=== PATIENT | male | born 1960 | race African-American/Black ===

== ENCOUNTER 2016-12-27 20:05 | Emergency (ER) | payer MEDICAID ==
[~2016-12-27] VITALS: Ht 185.4 cm; Wt 74.0 kg
[2016-12-27] MEDS ORDERED: METHYLPREDNISOLONE SOD SUCC 125 MG/2 ML VIAL IV STA (20:39)
[2016-12-27] MEDS ORDERED: ALBUTEROL (0.083%) 2.5MG/3ML NEB HHN STA (20:39)
[2016-12-27] MEDS ORDERED: IPRATROPIUM BROMIDE (0.02%) 0.5MG/2.5ML NEB HHN STA (20:39)
[2016-12-27 21:06] LABS: BASOPHILS % 0.8 % (0.0-2.0); EOSINOPHILS % 10.5 % (0.0-5.0); HEMATOCRIT. 41.4 % (42.0-52.0); HEMOGLOBIN. 13.7 g/dL (14.0-18.0); LYMPHOCYTES % 22.7 % (20.0-50.0); MEAN CORPUSCULAR HEMOGLOBIN 28.3 pg (28.0-32.0); MEAN CORPUSCULAR VOLUME 85.4 fL (80.0-94.0); MEAN PLATELET VOLUME 7.7 fl (7.4-10.4); MONOCYTES % 11.3 % (2.0-8.0); NEUTROPHILS % 54.7 % (40.0-76.0); PLATELET 207 x1000/uL (130-400); RED BLOOD CELL COUNT 4.84 mill/uL (4.7-6.1); RED CELL DISTRIBUTION WIDTH 14.1 % (11.6-14.6)
[2016-12-27 21:11] LABS: PROTHROMBIN TIME 10.7 sec
[2016-12-27 21:18] LABS: CARBON DIOXIDE 29 mEq/L (21-32); CHLORIDE 105 mEq/L (98-107)
[2016-12-28 00:30] VITALS: BP 125/78
== END 2016-12-28 01:10 | disposition home or self-care (01) ==
LOC: ER 20:17
DX: J45.901 Unspecified asthma with (acute) exacerbation (principal); F14.10 Cocaine abuse, uncomplicated; F17.200 Nicotine dependence, unspecified, uncomplicated; Z59.0 Homelessness
CPT/HCPCS: 36415; 71010; 80053; 83605; 85025; 85610; 87040; 93005; 94644; 96374; 99285; 99406; J2930; J7611

== ENCOUNTER 2017-05-05 10:11 | Emergency (ER) | payer MEDICAID ==
[~2017-05-05] VITALS: Ht 175.3 cm; Wt 66.0 kg
[2017-05-05] MEDS ORDERED: IPRATROPIUM/ALBUTEROL 0.5-3(2.5)MG/3ML NEB HHN ONE (10:45)
[2017-05-05 10:55] LABS: BASOPHILS % 2.8 % (0.0-2.0); EOSINOPHILS % 5.5 % (0.0-5.0); HEMATOCRIT. 42.2 % (42.0-52.0); HEMOGLOBIN. 14.2 g/dL (14.0-18.0); LYMPHOCYTES % 36.7 % (20.0-50.0); MEAN CORPUSCULAR HEMOGLOBIN 28.3 pg (28.0-32.0); MEAN CORPUSCULAR VOLUME 84.1 fL (80.0-94.0); MEAN PLATELET VOLUME 7.3 fl (7.4-10.4); MONOCYTES % 12.1 % (2.0-8.0); NEUTROPHILS % 42.9 % (40.0-76.0); PLATELET 224 x1000/uL (130-400); RED BLOOD CELL COUNT 5.01 mill/uL (4.7-6.1); RED CELL DISTRIBUTION WIDTH 13.2 % (11.6-14.6)
[2017-05-05 11:10] LABS: CARBON DIOXIDE 23 mEq/L (21-32); CHLORIDE 101 mEq/L (98-107); TROPONIN I < 0.02 ng/mL (0.00-0.04)
[2017-05-05 14:52] VITALS: BP 125/80
== END 2017-05-05 15:41 | disposition home or self-care (01) ==
LOC: ER 10:26
DX: J44.1 Chronic obstructive pulmonary disease with (acute) exacerbation (principal); G40.909 Epilepsy, unspecified, not intractable, without status epilepticus
CPT/HCPCS: 36415; 71010; 80048; 84484; 85025; 93005; 99285; J7620

== ENCOUNTER 2017-05-08 19:08 | Inpatient (IN) | payer MEDICAID ==
[~2017-05-08] VITALS: Ht 182.9 cm; Wt 61.2 kg
[2017-05-08] MEDS ORDERED: METHYLPREDNISOLONE SOD SUCC 125 MG/2 ML VIAL IV STA (19:48)
[2017-05-08] MEDS ORDERED: IPRATROPIUM/ALBUTEROL 0.5-3(2.5)MG/3ML NEB HHN ONE (20:00)
[2017-05-08] MEDS ORDERED: LEVOFLOXACIN 750MG PREMIX 150 ML IV ONE (20:00)
[2017-05-08 20:25] LABS: BASOPHILS % 0.5 % (0.0-2.0); EOSINOPHILS % 2.9 % (0.0-5.0); HEMATOCRIT. 43.9 % (42.0-52.0); HEMOGLOBIN. 14.6 g/dL (14.0-18.0); LYMPHOCYTES % 13.6 % (20.0-50.0); MEAN CORPUSCULAR HEMOGLOBIN 28.4 pg (28.0-32.0); MEAN CORPUSCULAR VOLUME 85.3 fL (80.0-94.0); MEAN PLATELET VOLUME 7.7 fl (7.4-10.4); MONOCYTES % 7.3 % (2.0-8.0); NEUTROPHILS % 75.7 % (40.0-76.0); PLATELET 206 x1000/uL (130-400); RED BLOOD CELL COUNT 5.14 mill/uL (4.7-6.1); RED CELL DISTRIBUTION WIDTH 13.3 % (11.6-14.6)
[2017-05-08 20:26] LABS: BG BASE EXCESS -2.7 mmol/L (-2.0-2.0); BG CARBOXYHEMOGLOBIN 1.9 % (0.5-1.5); BG DEOXYHEMOGLOBIN 5.3 % (0.0-5.0); BG FRACTION INSPIRED OXYGEN 28; BG METHEMOGLOBIN 0.3 % (0.0-1.5); BG OXYGEN SATURATION 94.6 % (92.0-98.5); BG OXYHEMOGLOBIN 92.5 % (94.0-97.0); BG PCO2 43.2 mmHg (35.0-45.0); BG PH 7.345 (7.350-7.450); BG PO2 73.6 mmHg (75.0-100.0); BG SAMPLE SITE RIGHT RADIAL; BG VENT MODE NASAL CANNULA
[2017-05-08 20:26] LABS: INR 1.1; PROTHROMBIN TIME 11.1 sec (9.4-11.6)
[2017-05-08 20:32] LABS: CARBON DIOXIDE 27 mEq/L (21-32); CHLORIDE 97 mEq/L (98-107)
[2017-05-08 20:37] LABS: CREATINE KINASE 340 IU/L (39-308); TROPONIN I < 0.02 ng/mL (0.00-0.04)
[2017-05-09] VITALS (7 sets, daily range): BP systolic 106–130; BP diastolic 68–85
[2017-05-09] MEDS ORDERED: METHYLPREDNISOLONE SOD SUCC 40 MG/ML VIAL IV SCH (06:30)
[2017-05-09] MEDS: OMEPRAZOLE 20MG CAPSULE EXTENDED RELEASE PO SCH (07:46)
[2017-05-09] MEDS: ENOXAPARIN 40MG/0.4ML SYR SUBCUT SCH (09:00)
[2017-05-09] MEDS: IPRATROPIUM/ALBUTEROL 0.5-3(2.5)MG/3ML NEB HHN SCH ×3 (11:18→21:14)
[2017-05-09 13:30] LABS: BASOPHILS % 0.1 % (0.0-2.0); HEMATOCRIT. 41.1 % (42.0-52.0); HEMOGLOBIN. 13.8 g/dL (14.0-18.0); LYMPHOCYTES % 10.5 % (20.0-50.0); MEAN CORPUSCULAR VOLUME 86.2 fL (80.0-94.0); MEAN PLATELET VOLUME 8.1 fl (7.4-10.4); MONOCYTES % 7.4 % (2.0-8.0); PLATELET 216 x1000/uL (130-400); RED BLOOD CELL COUNT 4.77 mill/uL (4.7-6.1); RED CELL DISTRIBUTION WIDTH 13.1 % (11.6-14.6)
[2017-05-09 13:55] LABS: CARBON DIOXIDE 25 mEq/L (21-32); CHLORIDE 97 mEq/L (98-107); CREATINE KINASE 213 IU/L (39-308); CREATINE KINASE MB FRACTION 5.4 ng/mL (0.5-3.6); HDL CHOLESTEROL 111 mg/dL (40-59); LDL CHOLESTEROL 50 mg/dL (5-100); TROPONIN I < 0.02 ng/mL (0.00-0.04)
[2017-05-09 18:33] LABS: CREATINE KINASE 186 IU/L (39-308); TROPONIN I < 0.02 ng/mL (0.00-0.04)
[2017-05-09] MEDS ORDERED: ACETAMINOPHEN 325MG TABLET PO PRN (20:00)
[2017-05-09] MEDS: METHYLPREDNISOLONE SOD SUCC 40 MG/ML VIAL IV SCH (20:26)
[2017-05-09] MEDS ORDERED: CEFTRIAXONE 1 G PREMIX 50 ML IV ONE (21:00)
[2017-05-09 21:09] LABS: CLARITY URINE CLEAR (CLEAR); COLOR URINE YELLOW (YELLOW); GLUCOSE URINE 1+ (NEGATIVE); KETONES URINE NEGATIVE (NEGATIVE); LEUKOCYTE ESTERASE URINE NEGATIVE (NEGATIVE); NITRITE URINE NEGATIVE (NEGATIVE); OCCULT BLOOD URINE NEGATIVE (NEGATIVE); PH URINE 6.5 (4.5-8.0); PROTEIN URINE NEGATIVE (NEGATIVE); SPECIFIC GRAVITY URINE 1.023 (1.005-1.030); UROBILINOGEN URINE 0.2 E.U./dL (0.2-1.0)
[2017-05-09 21:23] LABS: *AMPHETAMINES SCREEN URINE NEGATIVE (NEGATIVE); *BARBITURATES SCREEN URINE NEGATIVE (NEGATIVE); *BENZODIAZEPINES SCREEN URINE NEGATIVE (NEGATIVE); *COCAINE SCREEN URINE PRESUMTIVE POSITIVE (NEGATIVE); CANNABINOID URINE SCREEN NEGATIVE (NEGATIVE); METHADONE URINE SCREEN NEGATIVE (NEGATIVE); OPIATES URINE SCREEN PRESUMTIVE POSITIVE (NEGATIVE); PHENCYCLIDINE URINE SCREEN NEGATIVE (NEGATIVE)
[2017-05-09] MEDS: CEFTRIAXONE 1 G PREMIX 50 ML IV SCH (21:26)
[2017-05-10] VITALS: BP 96/56
[2017-05-10] MEDS: IPRATROPIUM/ALBUTEROL 0.5-3(2.5)MG/3ML NEB HHN SCH ×5 (01:15→15:59)
[2017-05-10 04:02] VITALS: BP 99/59
[2017-05-10 06:06] LABS: HEMATOCRIT. 38.2 % (42.0-52.0); HEMOGLOBIN. 12.6 g/dL (14.0-18.0); MEAN CORPUSCULAR HEMOGLOBIN 28.4 pg (28.0-32.0); MEAN CORPUSCULAR VOLUME 85.6 fL (80.0-94.0); PLATELET 215 x1000/uL (130-400); RED BLOOD CELL COUNT 4.46 mill/uL (4.7-6.1); RED CELL DISTRIBUTION WIDTH 13.4 % (11.6-14.6)
[2017-05-10 06:33] LABS: CARBON DIOXIDE 25 mEq/L (21-32); CHLORIDE 100 mEq/L (98-107)
[2017-05-10 08:00] VITALS: BP 125/81
[2017-05-10] MEDS: OMEPRAZOLE 20MG CAPSULE EXTENDED RELEASE PO SCH (08:07)
[2017-05-10] MEDS: METHYLPREDNISOLONE SOD SUCC 40 MG/ML VIAL IV SCH (08:36)
[2017-05-10] MEDS: ENOXAPARIN 40MG/0.4ML SYR SUBCUT SCH (08:38)
[2017-05-10 12:00] VITALS: BP 121/79
[2017-05-10 12:51] LABS: PLATELET ESTIMATE NORMAL
[2017-05-10 16:00] VITALS: BP 134/76
[2017-05-10] MEDS: CEFTRIAXONE 1 G PREMIX 50 ML IV SCH (16:05)
[2017-05-10 16:37] VITALS: BP 134/76
== END 2017-05-10 19:06 | disposition home or self-care (01) | DRG 816 ==
LOC: ER 19:19 → EDBEDREQ 22:42 → 7WST 22:42 → EDBEDREQTM 22:42 → ENRESERV 23:42 → 7WST 05-09 01:14
PROVIDERS: ADMIT Internal Medicine; ATTEND Internal Medicine
DX: T40.5X1A Poisoning by cocaine, accidental (unintentional), initial encounter (principal); J96.01 Acute respiratory failure with hypoxia; E87.2 Acidosis; M62.82 Rhabdomyolysis; E87.1 Hypo-osmolality and hyponatremia; R65.10 Systemic inflammatory response syndrome (SIRS) of non-infectious origin without acute organ dysfunction; J44.1 Chronic obstructive pulmonary disease with (acute) exacerbation; D64.9 Anemia, unspecified; F14.90 Cocaine use, unspecified, uncomplicated; F17.210 Nicotine dependence, cigarettes, uncomplicated; Z59.0 Homelessness; Z72.89 Other problems related to lifestyle
CPT/HCPCS: 36415; 36600; 71010; 80048; 80053; 80061; 80305; 81001; 82375; 82550; 82553; 82805; 83605; 83690; 83735; 83880; 84443; 84484; 85025; 85610; 87040; 87086; 93005; 93970; 94640; 94644; 96365; 96375; 99285; J0696; J1650; J1956; J2920; J2930; J7050; J7620

== ENCOUNTER 2017-05-30 05:41 | Emergency (ER) | payer MEDICAID ==
[~2017-05-30] VITALS: Ht 182.9 cm; Wt 91.0 kg
[2017-05-30] MEDS ORDERED: METHYLPREDNISOLONE SOD SUCC 125 MG/2 ML VIAL IV STA (06:18)
[2017-05-30] MEDS ORDERED: ALBUTEROL (0.083%) 2.5MG/3ML NEB HHN STA (06:18)
[2017-05-30] MEDS ORDERED: IPRATROPIUM BROMIDE (0.02%) 0.5MG/2.5ML NEB HHN STA (06:18)
[2017-05-30 07:00] LABS: BASOPHILS % 0.6 % (0.0-2.0); EOSINOPHILS % 7.2 % (0.0-5.0); HEMATOCRIT. 42.8 % (42.0-52.0); HEMOGLOBIN. 14.6 g/dL (14.0-18.0); LYMPHOCYTES % 28.4 % (20.0-50.0); MEAN CORPUSCULAR HEMOGLOBIN 29.3 pg (28.0-32.0); MEAN CORPUSCULAR VOLUME 85.7 fL (80.0-94.0); MEAN PLATELET VOLUME 7.6 fl (7.4-10.4); MONOCYTES % 10.2 % (2.0-8.0); NEUTROPHILS % 53.6 % (40.0-76.0); PLATELET 207 x1000/uL (130-400); RED BLOOD CELL COUNT 4.99 mill/uL (4.7-6.1); RED CELL DISTRIBUTION WIDTH 13.3 % (11.6-14.6)
[2017-05-30 07:08] LABS: PROTHROMBIN TIME 10.6 sec (9.4-11.6)
[2017-05-30] MEDS ORDERED: SODIUM CHLORIDE 0.9% 1,000 ML IV ONE (07:15)
[2017-05-30 07:18] LABS: CARBON DIOXIDE 27 mEq/L (21-32); CHLORIDE 99 mEq/L (98-107)
[2017-05-30 07:29] LABS: TROPONIN I < 0.02 ng/mL (0.00-0.04)
[2017-05-30] MEDS ORDERED: POTASSIUM CHLORIDE 20MEQ TABLET SR PO ONE (07:30)
[2017-05-30 09:03] VITALS: BP 110/75
== END 2017-05-30 10:08 | disposition home or self-care (01) ==
LOC: ER 05:41
DX: J44.1 Chronic obstructive pulmonary disease with (acute) exacerbation (principal); E87.6 Hypokalemia; F17.200 Nicotine dependence, unspecified, uncomplicated
CPT/HCPCS: 36415; 71010; 80053; 83605; 83690; 83880; 84484; 85025; 85610; 87040; 93005; 94640; 96361; 96374; 99285; J2930; J7030; J7611; Z7610

== ENCOUNTER 2017-06-02 03:45 | Emergency (ER) | payer MEDICAID ==
[~2017-06-02] VITALS: Ht 172.7 cm; Wt 76.0 kg
[2017-06-02] MEDS ORDERED: IPRATROPIUM BROMIDE (0.02%) 0.5MG/2.5ML NEB HHN STA (03:56)
[2017-06-02] MEDS ORDERED: ALBUTEROL (0.083%) 2.5MG/3ML NEB HHN STA (03:56)
[2017-06-02] MEDS ORDERED: PREDNISONE 20MG TABLET PO STA (03:56)
[2017-06-02] MEDS ORDERED: ALBUTEROL (0.5%) 2.5MG/0.5ML NEB HHN ONE (04:24)
[2017-06-02 05:10] VITALS: BP 101/74
== END 2017-06-02 05:15 | disposition home or self-care (01) ==
LOC: ER 03:45
DX: J45.901 Unspecified asthma with (acute) exacerbation (principal)
CPT/HCPCS: 94640; 99283; J7512; J7611

== ENCOUNTER 2017-07-20 20:05 | Emergency (ER) | payer MEDICAID ==
[~2017-07-20] VITALS: Ht 177.8 cm; Wt 73.0 kg
[2017-07-20] MEDS ORDERED: PREDNISONE 20MG TABLET PO STA (23:14)
[2017-07-20] MEDS ORDERED: IPRATROPIUM BROMIDE (0.02%) 0.5MG/2.5ML NEB HHN STA (23:14)
[2017-07-20] MEDS ORDERED: ALBUTEROL (0.083%) 2.5MG/3ML NEB HHN STA (23:14)
[2017-07-20] MEDS ORDERED: PHENYTOIN SODIUM EXTENDED 100MG CAPSULE PO ONE (23:15)
[2017-07-20] MEDS ORDERED: PREDNISONE 20MG TABLET PO ONE (23:15)
[2017-07-21 03:00] VITALS: BP 105/75
== END 2017-07-21 03:57 | disposition home or self-care (01) ==
LOC: ER 20:05
DX: J44.1 Chronic obstructive pulmonary disease with (acute) exacerbation (principal); I10 Essential (primary) hypertension
CPT/HCPCS: 94640; 99283; J7512; J7611; Z7610

== ENCOUNTER 2017-08-24 23:23 | Emergency (ER) | payer MEDICAID, OTHER ==
[~2017-08-24] VITALS: Ht 180.3 cm; Wt 70.0 kg
[2017-08-25] MEDS ORDERED: PREDNISONE 20MG TABLET PO NR (00:03)
[2017-08-25] MEDS ORDERED: IPRATROPIUM BROMIDE (0.02%) 0.5MG/2.5ML NEB HHN NR (00:03)
[2017-08-25] MEDS ORDERED: ALBUTEROL (0.083%) 2.5MG/3ML NEB HHN NR (00:03)
[2017-08-25 04:00] VITALS: BP 100/63
== END 2017-08-25 02:10 | disposition home or self-care (01) ==
LOC: ER 23:47
DX: J44.1 Chronic obstructive pulmonary disease with (acute) exacerbation (principal); I10 Essential (primary) hypertension; G40.909 Epilepsy, unspecified, not intractable, without status epilepticus; F17.200 Nicotine dependence, unspecified, uncomplicated; Z59.0 Homelessness
CPT/HCPCS: 99283; J7512

== ENCOUNTER 2017-10-15 21:24 | Emergency (ER) | payer MEDICAID, OTHER ==
[~2017-10-15] VITALS: Ht 180.3 cm; Wt 81.0 kg
[2017-10-15] MEDS ORDERED: PREDNISONE 20MG TABLET PO ONE (22:30)
[2017-10-15 23:21] LABS: CHLORIDE 107 mEq/L (98-107); PROTHROMBIN TIME 10.7 sec (9.4-11.6)
[2017-10-15 23:22] LABS: BASOPHILS % 0.7 % (0.0-2.0); EOSINOPHILS % 6.7 % (0.0-5.0); HEMATOCRIT. 39.4 % (42.0-52.0); HEMOGLOBIN. 13.3 g/dL (14.0-18.0); MEAN PLATELET VOLUME 7.3 fl (7.4-10.4); MONOCYTES % 13.7 % (2.0-8.0); NEUTROPHILS % 45.9 % (40.0-76.0); PLATELET 249 x1000/uL (130-400); RED BLOOD CELL COUNT 4.58 mill/uL (4.7-6.1); RED CELL DISTRIBUTION WIDTH 13.6 % (11.6-14.6)
[2017-10-16 00:36] VITALS: BP 113/61
== END 2017-10-16 14:33 | disposition home or self-care (01) ==
LOC: ER 21:24
DX: J44.1 Chronic obstructive pulmonary disease with (acute) exacerbation (principal); R56.9 Unspecified convulsions; F17.290 Nicotine dependence, other tobacco product, uncomplicated; Z59.0 Homelessness
CPT/HCPCS: 36415; 71045; 80053; 85025; 85610; 93005; 99285; 99406; J7512

== ENCOUNTER 2017-10-20 23:57 | Emergency (ER) | payer MEDICAID ==
[~2017-10-20] VITALS: Ht 175.3 cm; Wt 75.0 kg
[2017-10-21] MEDS ORDERED: IPRATROPIUM BROMIDE (0.02%) 0.5MG/2.5ML NEB HHN STA (00:50)
[2017-10-21] MEDS ORDERED: ALBUTEROL (0.083%) 2.5MG/3ML NEB HHN STA (00:50)
[2017-10-21] MEDS ORDERED: PREDNISONE 20MG TABLET PO STA (00:50)
[2017-10-21 03:00] VITALS: BP 150/70
== END 2017-10-21 04:51 | disposition home or self-care (01) ==
LOC: ER 10-21 00:04
DX: J45.901 Unspecified asthma with (acute) exacerbation (principal); R03.0 Elevated blood-pressure reading, without diagnosis of hypertension; G40.909 Epilepsy, unspecified, not intractable, without status epilepticus; F17.210 Nicotine dependence, cigarettes, uncomplicated
CPT/HCPCS: 94640; 99283; J7512; J7611; Z7610

== ENCOUNTER 2017-11-26 01:15 | Inpatient (IN) | payer MEDICAID ==
[~2017-11-26] VITALS: Ht 182.9 cm; Wt 65.3 kg
[2017-11-26] MEDS ORDERED: MAGNESIUM 2 G PREMIX 50 ML IV STA (01:45)
[2017-11-26] MEDS ORDERED: IPRATROPIUM BROMIDE (0.02%) 0.5MG/2.5ML NEB HHN STA (01:45)
[2017-11-26] MEDS ORDERED: ALBUTEROL (0.083%) 2.5MG/3ML NEB HHN STA (01:45)
[2017-11-26] MEDS ORDERED: DIPHENHYDRAMINE 50MG/ML VIAL IV ONE (01:45)
[2017-11-26] MEDS ORDERED: METHYLPREDNISOLONE SOD SUCC 125 MG/2 ML VIAL IV STA (01:45)
[2017-11-26 02:09] LABS: BASOPHILS % 0.4 % (0.0-2.0); EOSINOPHILS % 1.4 % (0.0-5.0); HEMATOCRIT. 42.8 % (42.0-52.0); HEMOGLOBIN. 14.3 g/dL (14.0-18.0); LYMPHOCYTES % 8.2 % (20.0-50.0); MEAN CORPUSCULAR HEMOGLOBIN 28.6 pg (28.0-32.0); MEAN CORPUSCULAR VOLUME 85.7 fL (80.0-94.0); MEAN PLATELET VOLUME 7.5 fl (7.4-10.4); MONOCYTES % 11.9 % (2.0-8.0); NEUTROPHILS % 78.1 % (40.0-76.0); PLATELET 215 x1000/uL (130-400); RED BLOOD CELL COUNT 4.99 mill/uL (4.7-6.1); RED CELL DISTRIBUTION WIDTH 13.5 % (11.6-14.6)
[2017-11-26 02:15] LABS: PROTHROMBIN TIME 10.5 sec (9.4-11.6)
[2017-11-26 02:22] LABS: CHLORIDE 96 mEq/L (98-107)
[2017-11-26 02:26] LABS: ETHANOL BLOOD 31 mg/dL
[2017-11-26] MEDS ORDERED: SODIUM CHLORIDE 0.9% 1000ML BAG (SEPSIS BOLUS) IV SCH (02:45)
[2017-11-26] MEDS ORDERED: LEVOFLOXACIN 750MG PREMIX 150 ML IV SCH (03:20)
[2017-11-26 06:50] VITALS: BP 143/89
[2017-11-26 07:22] VITALS: BP 127/77
[2017-11-26] MEDS ORDERED: CLONIDINE 0.1MG TABLET PO PRN (08:00)
[2017-11-26] MEDS ORDERED: DOCUSATE SODIUM 100MG CAPSULE PO PRN (08:00)
[2017-11-26] MEDS ORDERED: IPRATROPIUM/ALBUTEROL 0.5-3(2.5)MG/3ML NEB INH PRN (08:00)
[2017-11-26] MEDS ORDERED: HYDROCODONE/ACETAMINOPHEN 10/325MG TABLET PO PRN (08:00)
[2017-11-26] MEDS ORDERED: MAGNESIUM/ALUMINUM HYDROXIDE/SIMETHICONE 30ML UDC PO PRN (08:00)
[2017-11-26] MEDS ORDERED: ACETAMINOPHEN 650MG/20.3ML UDC GT PRN (08:00)
[2017-11-26] MEDS ORDERED: LORAZEPAM 0.5MG TABLET PO PRN (08:00)
[2017-11-26] MEDS ORDERED: ONDANSETRON HCL 4MG/2ML VIAL IV PRN (08:00)
[2017-11-26] MEDS ORDERED: ACETAMINOPHEN 325MG TABLET PO PRN (08:00)
[2017-11-26] MEDS ORDERED: GUAIFENESIN 200MG/10ML SUGAR FREE UDC PO PRN (08:00)
[2017-11-26] MEDS ORDERED: HYDROCODONE/ACETAMINOPHEN 5/325MG TABLET PO PRN (08:00)
[2017-11-26] MEDS ORDERED: DIPHENHYDRAMINE 50MG/ML VIAL IV PRN (08:00)
[2017-11-26] MEDS ORDERED: ACETAMINOPHEN 650MG SUPP PR PRN (08:00)
[2017-11-26] MEDS ORDERED: NA PHOS,M-B/NA PHOS,DI-BA ENEMA 118ML PR PRN (08:00)
[2017-11-26] MEDS ORDERED: SODIUM CHL 0.45% + KCL 20MEQ/L 1,000 ML IV SCH (09:00)
[2017-11-26 09:29] LABS: T4 FREE 1.15 ng/dL (0.76-1.46)
[2017-11-26 10:00] VITALS: BP 127/77
[2017-11-26] MEDS ORDERED: PIPERACILLIN/TAZ 3.375G PREMIX 50 ML IV SCH (10:00)
[2017-11-26] MEDS ORDERED: PIPERACILLIN/TAZ 2.25G PREMIX 50 ML IV SCH (10:00)
[2017-11-26] MEDS ORDERED: VANCOMYCIN 1500MG in DEXTROSE 5% WATER 250ML IV SCH (10:00)
[2017-11-26 11:31] VITALS: BP 130/73
[2017-11-26] MEDS ORDERED: METHYLPREDNISOLONE SOD SUCC 40 MG/ML VIAL IV SCH (12:00)
[2017-11-26 15:45] LABS: CREATINE KINASE 307 IU/L (39-308)
[2017-11-26] MEDS ORDERED: IPRATROPIUM/ALBUTEROL 0.5-3(2.5)MG/3ML NEB HHN PRN (15:45)
[2017-11-26 16:29] VITALS: BP 130/93
[2017-11-26] MEDS: BUDESONIDE 0.5MG/2ML NEB HHN SCH ×3 (16:32→23:00)
[2017-11-26] MEDS: IPRATROPIUM/ALBUTEROL 0.5-3(2.5)MG/3ML NEB HHN SCH (16:35)
[2017-11-26 20:00] VITALS: BP 122/65
[2017-11-26] MEDS ORDERED: VANCOMYCIN 1250MG in DEXTROSE 5% WATER 250ML IV SCH (22:00)
[2017-11-26] MEDS: RISPERIDONE 0.5MG TABLET PO SCH (22:03)
[2017-11-27] VITALS: BP 108/58
[2017-11-27 00:34] LABS: CREATINE KINASE 217 IU/L (39-308)
[2017-11-27 04:00] VITALS: BP 103/72
[2017-11-27 04:17] LABS: CLARITY URINE CLEAR (CLEAR); COLOR URINE YELLOW (YELLOW); KETONES URINE NEGATIVE (NEGATIVE); LEUKOCYTE ESTERASE URINE NEGATIVE (NEGATIVE); NITRITE URINE NEGATIVE (NEGATIVE); OCCULT BLOOD URINE NEGATIVE (NEGATIVE); PH URINE 7.5 (4.5-8.0); PROTEIN URINE NEGATIVE (NEGATIVE); SPECIFIC GRAVITY URINE 1.013 (1.005-1.030)
[2017-11-27 05:28] LABS: *AMPHETAMINES SCREEN URINE NEGATIVE (NEGATIVE); *BARBITURATES SCREEN URINE NEGATIVE (NEGATIVE); *COCAINE SCREEN URINE PRESUMTIVE POSITIVE (NEGATIVE)
[2017-11-27 05:29] LABS: *BENZODIAZEPINES SCREEN URINE NEGATIVE (NEGATIVE); CANNABINOID URINE SCREEN NEGATIVE (NEGATIVE); METHADONE URINE SCREEN NEGATIVE (NEGATIVE); OPIATES URINE SCREEN PRESUMTIVE POSITIVE (NEGATIVE); PHENCYCLIDINE URINE SCREEN NEGATIVE (NEGATIVE)
[2017-11-27 08:00] VITALS: BP 112/72
[2017-11-27] MEDS: IPRATROPIUM/ALBUTEROL 0.5-3(2.5)MG/3ML NEB HHN SCH ×4 (08:40→20:44)
[2017-11-27 12:00] VITALS: BP_SYST 122; BP_SYST 141; BP_SYST 163; BP_DIAS 84; BP_DIAS 91
[2017-11-27] MEDS ORDERED: PIPERONYL/PYRETHRINS (RID)120 ML SHAMPOO TOP SCH (12:15)
[2017-11-27] MEDS: MULTIVITAMINS,THER W-MINERALS TABLET PO SCH (13:24)
[2017-11-27] MEDS: FOLIC ACID 1MG TABLET PO SCH (13:24)
[2017-11-27] MEDS: THIAMINE HCL 100MG TABLET PO SCH (13:24)
[2017-11-27] MEDS: PREDNISONE 20MG TABLET PO SCH (13:24)
[2017-11-27] MEDS: BUDESONIDE 0.5MG/2ML NEB HHN SCH ×2 (14:08→20:44)
[2017-11-27 16:00] VITALS: BP 140/89
[2017-11-27 20:00] VITALS: BP 95/51
[2017-11-27] MEDS: RISPERIDONE 0.5MG TABLET PO SCH (22:46)
[2017-11-28] VITALS: BP 92/51
[2017-11-28] MEDS: IPRATROPIUM/ALBUTEROL 0.5-3(2.5)MG/3ML NEB HHN SCH ×3 (02:29→13:41)
[2017-11-28 04:00] VITALS: BP 116/69
[2017-11-28 08:00] VITALS: BP 101/63
[2017-11-28] MEDS: MULTIVITAMINS,THER W-MINERALS TABLET PO SCH (08:16)
[2017-11-28] MEDS: FOLIC ACID 1MG TABLET PO SCH (08:16)
[2017-11-28] MEDS: PREDNISONE 20MG TABLET PO SCH (08:16)
[2017-11-28] MEDS: THIAMINE HCL 100MG TABLET PO SCH (08:16)
[2017-11-28] MEDS: BUDESONIDE 0.5MG/2ML NEB HHN SCH (10:04)
[2017-11-28 12:00] VITALS: BP 105/71
[2017-11-28 14:06] VITALS: BP 115/70
== END 2017-11-28 17:30 | disposition home or self-care (01) | DRG 816 ==
LOC: ER 01:15 → 5WST 02:42 → EDBEDREQ 02:50 → EDBEDREQTM 02:50 → ENRESERV 03:58
PROVIDERS: ADMIT Internal Medicine; ATTEND Internal Medicine
DX: T40.5X1A Poisoning by cocaine, accidental (unintentional), initial encounter (principal); J96.00 Acute respiratory failure, unspecified whether with hypoxia or hypercapnia; J18.1 Lobar pneumonia, unspecified organism; J44.1 Chronic obstructive pulmonary disease with (acute) exacerbation; J68.0 Bronchitis and pneumonitis due to chemicals, gases, fumes and vapors; J45.901 Unspecified asthma with (acute) exacerbation; E87.1 Hypo-osmolality and hyponatremia; F10.10 Alcohol abuse, uncomplicated; G40.909 Epilepsy, unspecified, not intractable, without status epilepticus; F29 Unspecified psychosis not due to a substance or known physiological condition; F17.210 Nicotine dependence, cigarettes, uncomplicated; Y90.1 Blood alcohol level of 20-39 mg/100 ml; Z60.2 Problems related to living alone; B85.0 Pediculosis due to Pediculus humanus capitis; W18.39XA Other fall on same level, initial encounter; Y92.89 Other specified places as the place of occurrence of the external cause; Y93.89 Activity, other specified; Y99.8 Other external cause status
CPT/HCPCS: 36415; 70450; 71045; 80053; 80305; 81003; 82550; 83605; 83880; 84439; 84443; 84481; 84484; 85025; 85610; 87040; 87086; 93005; 94640; 94644; 96365; 96375; 97162; 99291; G0482; J1200; J1956; J2543; J2920; J2930; J3370; J3475; J3480; J7030; J7060; J7512; J7611; J7620; J7626

== ENCOUNTER 2018-03-26 05:52 | Emergency (ER) | payer MEDICAID ==
[~2018-03-26] VITALS: Ht 188 cm; Wt 73.0 kg
[2018-03-26] MEDS ORDERED: PREDNISONE 20MG TABLET PO STA (06:06)
[2018-03-26] MEDS ORDERED: ALBUTEROL (0.083%) 2.5MG/3ML NEB HHN STA (06:06)
[2018-03-26] MEDS ORDERED: IPRATROPIUM BROMIDE (0.02%) 0.5MG/2.5ML NEB HHN STA (06:06)
[2018-03-26 08:15] VITALS: BP 115/87
== END 2018-03-26 08:40 | disposition home or self-care (01) ==
LOC: ER 05:52
DX: J45.901 Unspecified asthma with (acute) exacerbation (principal); F17.210 Nicotine dependence, cigarettes, uncomplicated; Z72.0 Tobacco use
CPT/HCPCS: 71045; 99283; 99406; J7512; J7611

== ENCOUNTER 2018-04-15 05:07 | Emergency (ER) | payer MEDICAID ==
[~2018-04-15] VITALS: Ht 175.3 cm; Wt 68.0 kg
[2018-04-15] MEDS ORDERED: ALBUTEROL (0.083%) 2.5MG/3ML NEB HHN STA ×2 (05:32→06:15)
[2018-04-15] MEDS ORDERED: METHYLPREDNISOLONE SOD SUCC 125 MG/2 ML VIAL IV STA (06:15)
[2018-04-15] MEDS ORDERED: ASPIRIN 81MG TABLET PO ONE (06:15)
[2018-04-15] MEDS ORDERED: IPRATROPIUM BROMIDE (0.02%) 0.5MG/2.5ML NEB HHN STA (06:15)
[2018-04-15] MEDS ORDERED: LEVETIRACETAM 500MG PREMIX 100 ML IV ONE (06:15)
[2018-04-15 06:50] LABS: BASOPHILS % 0.6 % (0.0-2.0); EOSINOPHILS % 5.2 % (0.0-5.0); HEMATOCRIT. 48.2 % (42.0-52.0); HEMOGLOBIN. 15.8 g/dL (14.0-18.0); LYMPHOCYTES % 30.4 % (20.0-50.0); MEAN CORPUSCULAR HEMOGLOBIN 28.7 pg (28.0-32.0); MEAN CORPUSCULAR VOLUME 87.3 fL (80.0-94.0); MEAN PLATELET VOLUME 8.5 fl (7.4-10.4); NEUTROPHILS % 50.8 % (40.0-76.0); PLATELET 214 x1000/uL (130-400); RED BLOOD CELL COUNT 5.52 mill/uL (4.7-6.1); RED CELL DISTRIBUTION WIDTH 13.7 % (11.6-14.6)
[2018-04-15 06:53] LABS: CHLORIDE 97 mEq/L (98-107)
[2018-04-15 06:55] LABS: PARTIAL THROMBOPLASTIN TIME 28.5 sec (23.4-31.0)
[2018-04-15 07:15] LABS: CARBAMAZEPINE < 0.5 ug/mL (4-12); PHENOBARBITAL < 2.1 ug/mL (15.0-40.0); VALPROIC ACID < 3.0 ug/mL (50-100)
[2018-04-15] MEDS ORDERED: ALBUTEROL (0.5%) 2.5MG/0.5ML NEB HHN ONE (08:45)
[2018-04-15 12:47] VITALS: BP 131/80
== END 2018-04-15 12:49 | disposition home or self-care (01) ==
LOC: ER 05:07
DX: J44.1 Chronic obstructive pulmonary disease with (acute) exacerbation (principal); R56.9 Unspecified convulsions; Z87.891 Personal history of nicotine dependence
CPT/HCPCS: 36415; 71045; 80053; 80156; 80165; 80184; 80185; 83880; 84484; 85025; 85610; 85730; 93005; 94640; 94644; 96365; 96375; 99285; J1953; J2930; J7611; Z7610

== ENCOUNTER 2018-04-17 00:45 | Emergency (ER) | payer MEDICAID ==
[~2018-04-17] VITALS: Ht 175.3 cm; Wt 78.0 kg
[2018-04-17] MEDS ORDERED: ALBUTEROL (0.083%) 2.5MG/3ML NEB HHN STA (01:21)
[2018-04-17] MEDS ORDERED: PREDNISONE 20MG TABLET PO STA (01:21)
[2018-04-17] MEDS ORDERED: IPRATROPIUM BROMIDE (0.02%) 0.5MG/2.5ML NEB HHN STA (01:21)
[2018-04-17 04:44] VITALS: BP 92/57
== END 2018-04-17 04:54 | disposition home or self-care (01) ==
LOC: ER 00:45
DX: R06.02 Shortness of breath (principal); J45.909 Unspecified asthma, uncomplicated; R03.0 Elevated blood-pressure reading, without diagnosis of hypertension; G40.909 Epilepsy, unspecified, not intractable, without status epilepticus; F17.200 Nicotine dependence, unspecified, uncomplicated
CPT/HCPCS: 94640; 99283; J7512; J7611

== ENCOUNTER 2018-04-22 08:23 | Emergency (ER) | payer MEDICAID ==
[~2018-04-22] VITALS: Ht 185.4 cm; Wt 56.0 kg
[2018-04-22] MEDS ORDERED: PREDNISONE 20MG TABLET PO STA (09:03)
[2018-04-22] MEDS ORDERED: IPRATROPIUM BROMIDE (0.02%) 0.5MG/2.5ML NEB HHN STA (09:03)
[2018-04-22] MEDS ORDERED: ALBUTEROL (0.083%) 2.5MG/3ML NEB HHN STA (09:03)
[2018-04-22 09:21] VITALS: BP 138/93
[2018-04-22] MEDS ORDERED: IPRATROPIUM/ALBUTEROL 0.5-3(2.5)MG/3ML NEB HHN ONE (10:15)
== END 2018-04-22 11:17 | disposition home or self-care (01) ==
LOC: ER 08:23
DX: J44.1 Chronic obstructive pulmonary disease with (acute) exacerbation (principal); R56.9 Unspecified convulsions; F17.200 Nicotine dependence, unspecified, uncomplicated
CPT/HCPCS: 71045; 94640; 99283; J7512; J7611

== ENCOUNTER 2018-05-03 13:07 | Emergency (ER) | payer MEDICAID ==
[~2018-05-03] VITALS: Ht 175.3 cm; Wt 75.0 kg
[2018-05-03] MEDS ORDERED: ALBUTEROL (0.083%) 2.5MG/3ML NEB HHN STA (13:48)
[2018-05-03] MEDS ORDERED: IPRATROPIUM BROMIDE (0.02%) 0.5MG/2.5ML NEB HHN STA (13:48)
[2018-05-03] MEDS ORDERED: METHYLPREDNISOLONE SOD SUCC 125 MG/2 ML VIAL IV STA (13:48)
[2018-05-03 15:15] LABS: BASOPHILS % 1.2 % (0.0-2.0); EOSINOPHILS % 3.5 % (0.0-5.0); HEMATOCRIT. 43.6 % (42.0-52.0); HEMOGLOBIN. 14.7 g/dL (14.0-18.0); LYMPHOCYTES % 41.8 % (20.0-50.0); MEAN CORPUSCULAR HEMOGLOBIN 28.9 pg (28.0-32.0); MEAN CORPUSCULAR VOLUME 85.8 fL (80.0-94.0); MEAN PLATELET VOLUME 7.7 fl (7.4-10.4); MONOCYTES % 11.9 % (2.0-8.0); NEUTROPHILS % 41.6 % (40.0-76.0); PLATELET 280 x1000/uL (130-400); RED BLOOD CELL COUNT 5.08 mill/uL (4.7-6.1); RED CELL DISTRIBUTION WIDTH 13.3 % (11.6-14.6)
[2018-05-03 15:22] LABS: CHLORIDE 97 mEq/L (98-107)
[2018-05-03] MEDS ORDERED: LEVOFLOXACIN 250MG TABLET PO ONE (17:00)
[2018-05-03 17:43] VITALS: BP 122/76
== END 2018-05-03 18:05 | disposition home or self-care (01) ==
LOC: ER 13:08
DX: J44.1 Chronic obstructive pulmonary disease with (acute) exacerbation (principal); F17.210 Nicotine dependence, cigarettes, uncomplicated; R03.0 Elevated blood-pressure reading, without diagnosis of hypertension
CPT/HCPCS: 36415; 71045; 80053; 83605; 83690; 83880; 84484; 85025; 87040; 93005; 94640; 96374; 99285; J2930; J7611

== ENCOUNTER 2018-05-21 15:39 | Emergency (ER) | payer MEDICAID ==
[~2018-05-21] VITALS: Ht 177.8 cm; Wt 80.0 kg
[2018-05-21] MEDS ORDERED: PREDNISONE 20MG TABLET PO STA (16:13)
[2018-05-21] MEDS ORDERED: IPRATROPIUM BROMIDE (0.02%) 0.5MG/2.5ML NEB HHN STA (16:13)
[2018-05-21] MEDS ORDERED: ALBUTEROL (0.083%) 2.5MG/3ML NEB HHN STA (16:13)
[2018-05-21] MEDS ORDERED: DOXYCYCLINE HYCLATE 100MG CAPSULE PO ONE (19:30)
[2018-05-21 20:15] LABS: BASOPHILS % 0.4 % (0.0-2.0); EOSINOPHILS % 0.8 % (0.0-5.0); HEMATOCRIT. 39.7 % (42.0-52.0); HEMOGLOBIN. 13.1 g/dL (14.0-18.0); LYMPHOCYTES % 8.6 % (20.0-50.0); MEAN CORPUSCULAR HEMOGLOBIN 28.5 pg (28.0-32.0); MEAN CORPUSCULAR VOLUME 86.4 fL (80.0-94.0); MEAN PLATELET VOLUME 7.6 fl (7.4-10.4); MONOCYTES % 4.7 % (2.0-8.0); NEUTROPHILS % 85.5 % (40.0-76.0); PLATELET 219 x1000/uL (130-400); RED BLOOD CELL COUNT 4.59 mill/uL (4.7-6.1); RED CELL DISTRIBUTION WIDTH 13.3 % (11.6-14.6)
[2018-05-21 20:22] LABS: PARTIAL THROMBOPLASTIN TIME 28.9 sec (23.4-31.0)
[2018-05-21 20:24] LABS: CHLORIDE 99 mEq/L (98-107)
[2018-05-21 22:23] VITALS: BP 133/87
== END 2018-05-21 22:27 | disposition home or self-care (01) ==
LOC: ER 16:21
DX: J45.901 Unspecified asthma with (acute) exacerbation (principal)
CPT/HCPCS: 36415; 71045; 80053; 83605; 83880; 84484; 85025; 85610; 85730; 93005; 94640; 99283; J7512; J7611

== ENCOUNTER 2018-06-01 21:41 | Emergency (ER) | payer MEDICAID ==
[~2018-06-01] VITALS: Ht 175.3 cm; Wt 81.0 kg
[2018-06-01] MEDS ORDERED: PREDNISONE 20MG TABLET PO STA (23:03)
[2018-06-01] MEDS ORDERED: IPRATROPIUM BROMIDE (0.02%) 0.5MG/2.5ML NEB HHN STA (23:03)
[2018-06-01] MEDS ORDERED: ALBUTEROL (0.083%) 2.5MG/3ML NEB HHN STA (23:03)
[2018-06-02 04:30] VITALS: BP 106/63
== END 2018-06-02 04:45 | disposition home or self-care (01) ==
LOC: ER 22:04
DX: J44.1 Chronic obstructive pulmonary disease with (acute) exacerbation (principal); J45.909 Unspecified asthma, uncomplicated
CPT/HCPCS: 71045; 94640; 99283; J7512; J7611

== ENCOUNTER 2018-06-14 06:36 | Emergency (ER) | payer MEDICAID ==
[~2018-06-14] VITALS: Ht 182.9 cm; Wt 73.0 kg
[2018-06-14 08:29] VITALS: BP 123/82
== END 2018-06-14 08:15 | disposition home or self-care (01) ==
LOC: ER 06:36
DX: R06.02 Shortness of breath (principal); F17.210 Nicotine dependence, cigarettes, uncomplicated; Z71.6 Tobacco abuse counseling; R03.0 Elevated blood-pressure reading, without diagnosis of hypertension; J45.909 Unspecified asthma, uncomplicated; J44.9 Chronic obstructive pulmonary disease, unspecified
CPT/HCPCS: 93005; 99283

== ENCOUNTER 2018-06-14 23:04 | Emergency (ER) | payer MEDICAID ==
[~2018-06-14] VITALS: Ht 172.7 cm; Wt 82.0 kg
[2018-06-14] MEDS: ALBUTEROL (0.083%) 2.5MG/3ML NEB HHN SCH (00:10)
[2018-06-14] MEDS ORDERED: METHYLPREDNISOLONE SOD SUCC 125 MG/2 ML VIAL IV STA (23:19)
[2018-06-15] MEDS: ALBUTEROL (0.083%) 2.5MG/3ML NEB HHN SCH ×2 (00:40→01:10)
[2018-06-15 01:41] LABS: BASOPHILS % 0.5 % (0.0-2.0); EOSINOPHILS % 2.6 % (0.0-5.0); HEMATOCRIT. 36.9 % (42.0-52.0); HEMOGLOBIN. 12.5 g/dL (14.0-18.0); LYMPHOCYTES % 15.1 % (20.0-50.0); MEAN CORPUSCULAR HEMOGLOBIN 29.2 pg (28.0-32.0); MEAN CORPUSCULAR VOLUME 85.8 fL (80.0-94.0); MEAN PLATELET VOLUME 7.4 fl (7.4-10.4); MONOCYTES % 6.4 % (2.0-8.0); NEUTROPHILS % 75.4 % (40.0-76.0); PLATELET 204 x1000/uL (130-400); RED CELL DISTRIBUTION WIDTH 13.1 % (11.6-14.6)
[2018-06-15 01:43] LABS: CHLORIDE 100 mEq/L (98-107)
[2018-06-15 01:48] LABS: ETHANOL BLOOD < 10 mg/dL
[2018-06-15 04:03] VITALS: BP 121/66
== END 2018-06-15 04:08 | disposition home or self-care (01) ==
LOC: ER 23:04
DX: J45.901 Unspecified asthma with (acute) exacerbation (principal); E86.0 Dehydration; F17.200 Nicotine dependence, unspecified, uncomplicated; R56.9 Unspecified convulsions; Z59.0 Homelessness
CPT/HCPCS: 36415; 71045; 80053; 83880; 84484; 85025; 93005; 94640; 96374; 99285; G0482; J2930; J7611

== ENCOUNTER 2018-06-16 21:30 | Emergency (ER) | payer MEDICAID ==
[~2018-06-16] VITALS: Ht 182.9 cm; Wt 73.0 kg
[2018-06-16] MEDS ORDERED: SODIUM CHLORIDE 0.9% 1,000 ML IV ONE (23:00)
[2018-06-16] MEDS ORDERED: ALBUTEROL (0.083%) 2.5MG/3ML NEB HHN ONE (23:00)
[2018-06-16 23:47] LABS: BASOPHILS % 0.5 % (0.0-2.0); EOSINOPHILS % 5.8 % (0.0-5.0); HEMATOCRIT. 38.6 % (42.0-52.0); HEMOGLOBIN. 12.8 g/dL (14.0-18.0); LYMPHOCYTES % 34.3 % (20.0-50.0); MEAN CORPUSCULAR HEMOGLOBIN 28.9 pg (28.0-32.0); MEAN CORPUSCULAR VOLUME 87.3 fL (80.0-94.0); MEAN PLATELET VOLUME 7.6 fl (7.4-10.4); NEUTROPHILS % 51.4 % (40.0-76.0); PLATELET 218 x1000/uL (130-400); RED BLOOD CELL COUNT 4.43 mill/uL (4.7-6.1); RED CELL DISTRIBUTION WIDTH 13.5 % (11.6-14.6)
[2018-06-16 23:52] LABS: CHLORIDE 103 mEq/L (98-107)
[2018-06-17 05:42] LABS: CLARITY URINE CLEAR (CLEAR); COLOR URINE YELLOW (YELLOW); KETONES URINE NEGATIVE (NEGATIVE); LEUKOCYTE ESTERASE URINE NEGATIVE (NEGATIVE); NITRITE URINE NEGATIVE (NEGATIVE); OCCULT BLOOD URINE NEGATIVE (NEGATIVE); PH URINE 6.5 (4.5-8.0); PROTEIN URINE NEGATIVE (NEGATIVE); SPECIFIC GRAVITY URINE 1.019 (1.005-1.030); UROBILINOGEN URINE 0.2 E.U./dL (0.2-1.0)
[2018-06-17 05:53] LABS: *AMPHETAMINES SCREEN URINE NEGATIVE (NEGATIVE); *BARBITURATES SCREEN URINE NEGATIVE (NEGATIVE); *BENZODIAZEPINES SCREEN URINE NEGATIVE (NEGATIVE); *COCAINE SCREEN URINE PRESUMTIVE POSITIVE (NEGATIVE); METHADONE URINE SCREEN NEGATIVE (NEGATIVE); OPIATES URINE SCREEN NEGATIVE (NEGATIVE)
[2018-06-17 05:54] LABS: CANNABINOID URINE SCREEN NEGATIVE (NEGATIVE); PHENCYCLIDINE URINE SCREEN NEGATIVE (NEGATIVE)
[2018-06-17 08:40] VITALS: BP 122/76
== END 2018-06-17 08:49 | disposition home or self-care (01) ==
LOC: ER 22:10
DX: J45.901 Unspecified asthma with (acute) exacerbation (principal); E86.0 Dehydration; Z59.0 Homelessness
CPT/HCPCS: 36415; 80048; 80305; 81003; 85025; 94640; 96360; 96361; 99283; G0482; J7030; J7611

== ENCOUNTER 2018-06-23 14:56 | Emergency (ER) | payer MEDICAID ==
[~2018-06-23] VITALS: Ht 172.7 cm; Wt 70.0 kg
[2018-06-23] MEDS ORDERED: ALBUTEROL (0.083%) 2.5MG/3ML NEB HHN STA (15:59)
[2018-06-23] MEDS ORDERED: PREDNISONE 20MG TABLET PO STA (15:59)
[2018-06-23] MEDS ORDERED: IPRATROPIUM BROMIDE (0.02%) 0.5MG/2.5ML NEB HHN STA (15:59)
[2018-06-23 16:38] LABS: HEMATOCRIT. 42.5 % (42.0-52.0); HEMOGLOBIN. 14.2 g/dL (14.0-18.0); MEAN CORPUSCULAR HEMOGLOBIN 29.1 pg (28.0-32.0); MEAN CORPUSCULAR VOLUME 87.2 fL (80.0-94.0); MEAN PLATELET VOLUME 7.7 fl (7.4-10.4); PLATELET 237 x1000/uL (130-400); RED BLOOD CELL COUNT 4.87 mill/uL (4.7-6.1); RED CELL DISTRIBUTION WIDTH 13.8 % (11.6-14.6)
[2018-06-23 16:39] LABS: CHLORIDE 101 mEq/L (98-107)
[2018-06-23 16:59] LABS: PLATELET ESTIMATE NORMAL
[2018-06-23 19:31] VITALS: BP 102/69
== END 2018-06-23 19:44 | disposition home or self-care (01) ==
LOC: ER 14:56
DX: J44.1 Chronic obstructive pulmonary disease with (acute) exacerbation (principal); I10 Essential (primary) hypertension
CPT/HCPCS: 36415; 71045; 80048; 83880; 84484; 85025; 93005; 94640; 99284; J7512; J7611

== ENCOUNTER 2018-07-02 23:16 | Emergency (ER) | payer MEDICAID ==
[~2018-07-02] VITALS: Ht 180.3 cm; Wt 77.0 kg
[2018-07-03 01:23] VITALS: BP 99/50
== END 2018-07-03 01:40 | disposition home or self-care (01) ==
LOC: ER 23:16
DX: G40.909 Epilepsy, unspecified, not intractable, without status epilepticus (principal); J44.1 Chronic obstructive pulmonary disease with (acute) exacerbation; I10 Essential (primary) hypertension; J45.909 Unspecified asthma, uncomplicated; F17.210 Nicotine dependence, cigarettes, uncomplicated
CPT/HCPCS: 99283

== ENCOUNTER 2018-07-06 21:53 | Emergency (ER) | payer MEDICAID ==
[~2018-07-06] VITALS: Ht 193 cm; Wt 82.0 kg
[2018-07-06] MEDS ORDERED: ALBUTEROL (0.083%) 2.5MG/3ML NEB HHN STA (22:56)
[2018-07-06] MEDS ORDERED: IPRATROPIUM BROMIDE (0.02%) 0.5MG/2.5ML NEB HHN STA (22:56)
[2018-07-07 07:03] VITALS: BP 121/80
== END 2018-07-07 07:37 | disposition home or self-care (01) ==
LOC: ER 21:53
DX: J44.1 Chronic obstructive pulmonary disease with (acute) exacerbation (principal)
CPT/HCPCS: 93005; 99283; J7611

== ENCOUNTER 2018-07-09 23:52 | Emergency (ER) | payer MEDICAID, OTHER ==
[~2018-07-09] VITALS: Ht 182.9 cm; Wt 79.0 kg
[2018-07-10] MEDS ORDERED: ALBUTEROL (0.083%) 2.5MG/3ML NEB HHN STA (01:35)
[2018-07-10] MEDS ORDERED: IPRATROPIUM BROMIDE (0.02%) 0.5MG/2.5ML NEB HHN STA (01:35)
[2018-07-10] MEDS ORDERED: PREDNISONE 20MG TABLET PO STA (01:35)
[2018-07-10 03:43] VITALS: BP 91/53
== END 2018-07-10 03:51 | disposition home or self-care (01) ==
LOC: ER 23:52
DX: J45.901 Unspecified asthma with (acute) exacerbation (principal)
CPT/HCPCS: 71045; 99285; J7512; J7611

== ENCOUNTER 2018-07-22 21:34 | Emergency (ER) | payer MEDICAID, OTHER ==
[~2018-07-22] VITALS: Ht 182.9 cm; Wt 77.0 kg
[2018-07-22] MEDS ORDERED: ALBUTEROL (0.083%) 2.5MG/3ML NEB HHN STA (21:49)
[2018-07-22] MEDS ORDERED: METHYLPREDNISOLONE SOD SUCC 125 MG/2 ML VIAL IV STA (21:49)
[2018-07-22] MEDS ORDERED: IPRATROPIUM BROMIDE (0.02%) 0.5MG/2.5ML NEB HHN STA (21:49)
[2018-07-22] MEDS ORDERED: MAGNESIUM 2 G PREMIX 50 ML IV STA (21:49)
[2018-07-22 22:59] LABS: BASOPHILS % 0.7 % (0.0-2.0); EOSINOPHILS % 5.2 % (0.0-5.0); HEMATOCRIT. 39.4 % (42.0-52.0); HEMOGLOBIN. 12.9 g/dL (14.0-18.0); MEAN CORPUSCULAR HEMOGLOBIN 28.6 pg (28.0-32.0); MEAN CORPUSCULAR VOLUME 87.5 fL (80.0-94.0); MEAN PLATELET VOLUME 7.3 fl (7.4-10.4); MONOCYTES % 12.3 % (2.0-8.0); NEUTROPHILS % 38.8 % (40.0-76.0); PLATELET 256 x1000/uL (130-400); RED CELL DISTRIBUTION WIDTH 13.5 % (11.6-14.6)
[2018-07-22 23:04] LABS: CHLORIDE 105 mEq/L (98-107)
[2018-07-22 23:07] LABS: PROTHROMBIN TIME 10.3 sec (9.1-11.1)
[2018-07-23 00:50] VITALS: BP 120/74
== END 2018-07-23 00:50 | disposition home or self-care (01) ==
LOC: ER 21:34
DX: J44.1 Chronic obstructive pulmonary disease with (acute) exacerbation (principal); I10 Essential (primary) hypertension
CPT/HCPCS: 36415; 71045; 80053; 83880; 84484; 85025; 85610; 85730; 93005; 94644; 96365; 96375; 99285; J2930; J3475; J7611

== ENCOUNTER 2018-07-31 16:46 | Emergency (ER) | payer MEDICAID ==
[~2018-07-31] VITALS: Ht 177.8 cm; Wt 70.0 kg
[2018-07-31] MEDS ORDERED: ALBUTEROL (0.083%) 2.5MG/3ML NEB HHN STA (17:43)
[2018-07-31] MEDS ORDERED: IPRATROPIUM BROMIDE (0.02%) 0.5MG/2.5ML NEB HHN STA (17:43)
[2018-07-31] MEDS ORDERED: PREDNISONE 20MG TABLET PO ONE (19:15)
[2018-07-31 19:30] VITALS: BP 113/82
== END 2018-07-31 20:26 | disposition home or self-care (01) ==
LOC: ER 16:46
DX: J45.901 Unspecified asthma with (acute) exacerbation (principal); F17.210 Nicotine dependence, cigarettes, uncomplicated; R03.0 Elevated blood-pressure reading, without diagnosis of hypertension
CPT/HCPCS: 71045; 93005; 94640; 99283; J7512; J7611

== ENCOUNTER 2018-08-02 19:06 | Emergency (ER) | payer MEDICAID ==
[~2018-08-02] VITALS: Ht 177.8 cm; Wt 80.0 kg
[2018-08-02] MEDS ORDERED: ALBUTEROL (0.083%) 2.5MG/3ML NEB HHN STA ×2 (20:38→21:49)
[2018-08-02] MEDS ORDERED: METHYLPREDNISOLONE SOD SUCC 125 MG/2 ML VIAL IV STA (20:38)
[2018-08-02] MEDS ORDERED: IPRATROPIUM BROMIDE (0.02%) 0.5MG/2.5ML NEB HHN STA ×2 (20:38→21:49)
[2018-08-02] MEDS ORDERED: IBUPROFEN 600MG TABLET PO ONE (22:00)
[2018-08-02] MEDS ORDERED: SODIUM CHLORIDE 0.9% 1,000 ML IV ONE (22:00)
[2018-08-02 22:51] LABS: EOSINOPHILS % 7.5 % (0.0-5.0); HEMATOCRIT. 41.3 % (42.0-52.0); HEMOGLOBIN. 13.4 g/dL (14.0-18.0); LYMPHOCYTES % 37.2 % (20.0-50.0); MEAN CORPUSCULAR HEMOGLOBIN 28.2 pg (28.0-32.0); MEAN CORPUSCULAR VOLUME 86.7 fL (80.0-94.0); MEAN PLATELET VOLUME 7.6 fl (7.4-10.4); MONOCYTES % 10.4 % (2.0-8.0); NEUTROPHILS % 43.9 % (40.0-76.0); PLATELET 225 x1000/uL (130-400); RED BLOOD CELL COUNT 4.76 mill/uL (4.7-6.1); RED CELL DISTRIBUTION WIDTH 13.2 % (11.6-14.6)
[2018-08-02 22:59] LABS: CHLORIDE 100 mEq/L (98-107)
[2018-08-02 23:03] LABS: ETHANOL BLOOD < 10 mg/dL
[2018-08-03 03:30] LABS: CLARITY URINE CLEAR (CLEAR); COLOR URINE YELLOW (YELLOW); KETONES URINE NEGATIVE (NEGATIVE); LEUKOCYTE ESTERASE URINE NEGATIVE (NEGATIVE); NITRITE URINE NEGATIVE (NEGATIVE); OCCULT BLOOD URINE NEGATIVE (NEGATIVE); PROTEIN URINE NEGATIVE (NEGATIVE); SPECIFIC GRAVITY URINE 1.023 (1.005-1.030)
[2018-08-03 03:56] LABS: *AMPHETAMINES SCREEN URINE NEGATIVE (NEGATIVE); *BARBITURATES SCREEN URINE NEGATIVE (NEGATIVE); *BENZODIAZEPINES SCREEN URINE NEGATIVE (NEGATIVE); *COCAINE SCREEN URINE PRESUMTIVE POSITIVE (NEGATIVE)
[2018-08-03 03:57] LABS: CANNABINOID URINE SCREEN NEGATIVE (NEGATIVE); METHADONE URINE SCREEN NEGATIVE (NEGATIVE); OPIATES URINE SCREEN NEGATIVE (NEGATIVE); PHENCYCLIDINE URINE SCREEN NEGATIVE (NEGATIVE)
[2018-08-03] MEDS ORDERED: IBUPROFEN 600MG TABLET PO STA (13:43)
[2018-08-03 16:47] VITALS: BP 141/82
== END 2018-08-03 16:53 | disposition home or self-care (01) ==
LOC: ER 19:38
DX: J45.901 Unspecified asthma with (acute) exacerbation (principal); Z59.0 Homelessness
CPT/HCPCS: 36415; 71045; 80053; 80305; 80307; 80329; 81003; 83605; 85025; 94640; 96374; 99284; G0482; J2930; J7611

== ENCOUNTER 2018-08-13 14:33 | Emergency (ER) | payer MEDICAID ==
[~2018-08-13] VITALS: Ht 167.6 cm; Wt 70.0 kg
[2018-08-13] MEDS ORDERED: IPRATROPIUM BROMIDE (0.02%) 0.5MG/2.5ML NEB HHN STA (14:38)
[2018-08-13] MEDS ORDERED: PREDNISONE 20MG TABLET PO STA (14:38)
[2018-08-13] MEDS ORDERED: ALBUTEROL (0.083%) 2.5MG/3ML NEB HHN STA (14:38)
[2018-08-13] MEDS ORDERED: ALBUTEROL (0.083%) 2.5MG/3ML NEB ONE (14:56)
[2018-08-13] MEDS ORDERED: ALBUTEROL (0.5%) 2.5MG/0.5ML NEB HHN ONE (14:56)
[2018-08-13] MEDS ORDERED: IPRATROPIUM BROMIDE (0.02%) 0.5MG/2.5ML NEB ONE (14:57)
[2018-08-13 17:36] VITALS: BP 107/69
== END 2018-08-13 17:36 | disposition home or self-care (01) ==
LOC: ER 14:33
DX: J44.1 Chronic obstructive pulmonary disease with (acute) exacerbation (principal); F10.20 Alcohol dependence, uncomplicated; Y90.9 Presence of alcohol in blood, level not specified
CPT/HCPCS: 71045; 93005; 94640; 99283; J7512; J7611

== ENCOUNTER 2018-08-25 21:49 | Emergency (ER) | payer MEDICAID ==
[~2018-08-25] VITALS: Ht 172.7 cm; Wt 59.0 kg
[2018-08-25] MEDS ORDERED: ALBUTEROL (0.083%) 2.5MG/3ML NEB HHN STA (23:18)
[2018-08-25] MEDS ORDERED: IPRATROPIUM BROMIDE (0.02%) 0.5MG/2.5ML NEB HHN STA (23:18)
[2018-08-25] MEDS ORDERED: PREDNISONE 20MG TABLET PO STA (23:18)
[2018-08-25] MEDS ORDERED: AZITHROMYCIN 500 MG TABLET PO ONE (23:45)
[2018-08-26 03:30] VITALS: BP 132/80
== END 2018-08-26 03:53 | disposition home or self-care (01) ==
LOC: ER 21:49
DX: J44.1 Chronic obstructive pulmonary disease with (acute) exacerbation (principal); F17.200 Nicotine dependence, unspecified, uncomplicated
CPT/HCPCS: 71046; 87804; 99284; J7512

== ENCOUNTER 2018-08-29 22:21 | Inpatient (IN) | payer MEDICAID ==
[~2018-08-29] VITALS: Ht 193 cm; Wt 73.0 kg
[2018-08-29] MEDS ORDERED: METHYLPREDNISOLONE SOD SUCC 125 MG/2 ML VIAL IV STA (23:09)
[2018-08-29] MEDS ORDERED: ASPIRIN 81MG TABLET PO ONE (23:15)
[2018-08-30 00:57] LABS: BASOPHILS % 0.5 % (0.0-2.0); HEMOGLOBIN. 12.7 g/dL (14.0-18.0); LYMPHOCYTES % 28.6 % (20.0-50.0); MEAN CORPUSCULAR HEMOGLOBIN 28.2 pg (28.0-32.0); MEAN CORPUSCULAR VOLUME 86.7 fL (80.0-94.0); MEAN PLATELET VOLUME 7.3 fl (7.4-10.4); NEUTROPHILS % 55.9 % (40.0-76.0); PLATELET 210 x1000/uL (130-400); RED CELL DISTRIBUTION WIDTH 13.2 % (11.6-14.6)
[2018-08-30 01:01] LABS: CHLORIDE 99 mEq/L (98-107)
[2018-08-30 01:04] LABS: PARTIAL THROMBOPLASTIN TIME 30.2 sec (23.4-31.0); PROTHROMBIN TIME 10.3 sec (9.1-11.1)
[2018-08-30 01:06] LABS: ETHANOL BLOOD < 10 mg/dL
[2018-08-30] MEDS ORDERED: IBUPROFEN 400MG TABLET PO ONE (01:30)
[2018-08-30 01:42] LABS: *AMPHETAMINES SCREEN URINE NEGATIVE (NEGATIVE); *BARBITURATES SCREEN URINE NEGATIVE (NEGATIVE); *BENZODIAZEPINES SCREEN URINE NEGATIVE (NEGATIVE); *COCAINE SCREEN URINE PRESUMTIVE POSITIVE (NEGATIVE)
[2018-08-30 01:43] LABS: CANNABINOID URINE SCREEN NEGATIVE (NEGATIVE); METHADONE URINE SCREEN NEGATIVE (NEGATIVE); OPIATES URINE SCREEN NEGATIVE (NEGATIVE); PHENCYCLIDINE URINE SCREEN NEGATIVE (NEGATIVE)
[2018-08-30 04:20] VITALS: BP 128/76
[2018-08-30] MEDS ORDERED: DIPHENHYDRAMINE 50MG/ML VIAL IV PRN (07:30)
[2018-08-30] MEDS ORDERED: IPRATROPIUM/ALBUTEROL 0.5-3(2.5)MG/3ML NEB INH PRN (07:30)
[2018-08-30] MEDS ORDERED: GUAIFENESIN 200MG/10ML SUGAR FREE UDC PO PRN (07:30)
[2018-08-30] MEDS ORDERED: DOCUSATE SODIUM 100MG CAPSULE PO PRN (07:30)
[2018-08-30] MEDS ORDERED: HYDROCODONE/ACETAMINOPHEN 5/325MG TABLET PO PRN (07:30)
[2018-08-30] MEDS ORDERED: ONDANSETRON HCL 4MG/2ML INJ IV PRN (07:30)
[2018-08-30 08:00] VITALS: BP 127/72
[2018-08-30 10:01] LABS: PHOSPHORUS 2.8 mg/dL (2.5-4.9)
[2018-08-30] MEDS: ENOXAPARIN 40MG/0.4ML SYR SUBCUT SCH (10:21)
[2018-08-30 12:00] VITALS: BP 138/76
[2018-08-30 12:10] LABS: HEPATITIS B SURFACE ANTIGEN NEGATIVE
[2018-08-30 12:40] LABS: HEPATITIS A AB IGM NEGATIVE (NEGATIVE)
[2018-08-30] MEDS ORDERED: LORAZEPAM 2MG/ML CPJ IV PRN ×2 (15:30→18:00)
[2018-08-30 16:00] VITALS: BP 114/74
[2018-08-30 16:56] LABS: CREATINE KINASE 206 IU/L (39-308)
[2018-08-30 20:00] VITALS: BP 92/66
[2018-08-31] VITALS: BP 124/52
[2018-08-31 01:34] LABS: CREATINE KINASE 170 IU/L (39-308)
[2018-08-31 04:00] VITALS: BP 101/62
[2018-08-31 06:49] LABS: BASOPHILS % 0.2 % (0.0-2.0); EOSINOPHILS % 1.2 % (0.0-5.0); HEMATOCRIT. 38.2 % (42.0-52.0); HEMOGLOBIN. 12.5 g/dL (14.0-18.0); LYMPHOCYTES % 25.3 % (20.0-50.0); MEAN CORPUSCULAR HEMOGLOBIN 28.3 pg (28.0-32.0); MEAN CORPUSCULAR VOLUME 86.4 fL (80.0-94.0); MEAN PLATELET VOLUME 7.7 fl (7.4-10.4); MONOCYTES % 7.2 % (2.0-8.0); NEUTROPHILS % 66.1 % (40.0-76.0); PLATELET 216 x1000/uL (130-400); RED BLOOD CELL COUNT 4.42 mill/uL (4.7-6.1); RED CELL DISTRIBUTION WIDTH 13.1 % (11.6-14.6)
[2018-08-31 06:58] LABS: CHLORIDE 103 mEq/L (98-107)
[2018-08-31 07:08] LABS: HDL CHOLESTEROL 87 mg/dL (40-59)
[2018-08-31 07:12] LABS: LDL CHOLESTEROL 49 mg/dL (5-100)
[2018-08-31 08:00] VITALS: BP 107/70
[2018-08-31] MEDS: ENOXAPARIN 40MG/0.4ML SYR SUBCUT SCH (09:11)
[2018-08-31 11:56] VITALS: BP 103/61
[2018-08-31 15:44] VITALS: BP 101/56
[2018-08-31 20:00] VITALS: BP 92/55
[2018-09-01] VITALS: BP 90/47
[2018-09-01 04:00] VITALS: BP 92/45
[2018-09-01 08:00] VITALS: BP 87/50
[2018-09-01 08:01] LABS: BASOPHILS % 0.7 % (0.0-2.0); EOSINOPHILS % 4.2 % (0.0-5.0); HEMATOCRIT. 40.4 % (42.0-52.0); HEMOGLOBIN. 13.1 g/dL (14.0-18.0); LYMPHOCYTES % 24.8 % (20.0-50.0); MEAN CORPUSCULAR HEMOGLOBIN 28.1 pg (28.0-32.0); MEAN CORPUSCULAR VOLUME 86.8 fL (80.0-94.0); MEAN PLATELET VOLUME 7.4 fl (7.4-10.4); NEUTROPHILS % 59.3 % (40.0-76.0); PLATELET 220 x1000/uL (130-400); RED BLOOD CELL COUNT 4.65 mill/uL (4.7-6.1); RED CELL DISTRIBUTION WIDTH 13.4 % (11.6-14.6)
[2018-09-01 08:21] LABS: CHLORIDE 100 mEq/L (98-107)
[2018-09-01] MEDS: ENOXAPARIN 40MG/0.4ML SYR SUBCUT SCH (09:22)
[2018-09-01 10:08] LABS: HIV SCREEN 4G Non Reactive (Non Reactive)
[2018-09-01] MEDS: ACETAMINOPHEN 325MG TABLET PO PRN (10:16)
[2018-09-01 12:00] VITALS: BP 98/46
[2018-09-01 16:00] VITALS: BP 103/50
[2018-09-01 19:09] LABS: CREATINE KINASE 140 IU/L (39-308)
[2018-09-01 19:10] LABS: CREATINE KINASE MB FRACTION < 1.0 ng/mL (0.5-3.6)
[2018-09-01 20:45] VITALS: BP 94/50
[2018-09-02] VITALS: BP 104/52
[2018-09-02 04:00] VITALS: BP 98/59
[2018-09-02 06:15] LABS: BASOPHILS % 0.7 % (0.0-2.0); HEMATOCRIT. 40.1 % (42.0-52.0); LYMPHOCYTES % 25.1 % (20.0-50.0); MEAN CORPUSCULAR HEMOGLOBIN 28.3 pg (28.0-32.0); MEAN CORPUSCULAR VOLUME 87.1 fL (80.0-94.0); MEAN PLATELET VOLUME 7.8 fl (7.4-10.4); MONOCYTES % 11.1 % (2.0-8.0); NEUTROPHILS % 57.1 % (40.0-76.0); PLATELET 211 x1000/uL (130-400); RED BLOOD CELL COUNT 4.61 mill/uL (4.7-6.1); RED CELL DISTRIBUTION WIDTH 13.1 % (11.6-14.6)
[2018-09-02 06:48] LABS: CHLORIDE 102 mEq/L (98-107)
[2018-09-02 08:00] VITALS: BP 98/64
[2018-09-02] MEDS: ENOXAPARIN 40MG/0.4ML SYR SUBCUT SCH (09:21)
[2018-09-02 11:14] VITALS: BP 90/56
[2018-09-02 15:43] VITALS: BP 94/58
[2018-09-02 20:00] VITALS: BP 99/64
[2018-09-03] VITALS: BP 95/59
[2018-09-03 06:00] VITALS: BP 99/60
[2018-09-03 08:00] VITALS: BP 102/66
[2018-09-03] MEDS: ACETAMINOPHEN 325MG TABLET PO PRN (08:09)
[2018-09-03] MEDS: ENOXAPARIN 40MG/0.4ML SYR SUBCUT SCH (08:10)
[2018-09-03 11:56] VITALS: BP 102/66
[2018-09-03 12:00] VITALS: BP 118/73
== END 2018-09-03 15:00 | disposition home or self-care (01) | DRG 203 ==
LOC: ER 22:21 → 6WST 08-30 01:34 → EDBEDREQ 08-30 01:39 → EDBEDREQTM 08-30 01:39 → ENRESERV 08-30 02:15
PROVIDERS: ADMIT Internal Medicine; ATTEND Internal Medicine
DX: M94.0 Chondrocostal junction syndrome [Tietze] (principal); I95.9 Hypotension, unspecified; E44.1 Mild protein-calorie malnutrition; E87.1 Hypo-osmolality and hyponatremia; F10.10 Alcohol abuse, uncomplicated; J44.9 Chronic obstructive pulmonary disease, unspecified; I10 Essential (primary) hypertension; G40.909 Epilepsy, unspecified, not intractable, without status epilepticus; F14.10 Cocaine abuse, uncomplicated; F17.200 Nicotine dependence, unspecified, uncomplicated; J45.909 Unspecified asthma, uncomplicated; Z59.0 Homelessness
CPT/HCPCS: 36415; 71045; 80048; 80061; 80305; 82550; 82553; 82962; 83735; 83880; 84100; 84443; 84484; 85379; 86705; 86709; 86803; 87340; 87389; 93005; 93306; 93970; 96374; 97116; 97162; 97166; 99285; J1650; J2930

== ENCOUNTER 2018-09-25 02:29 | Emergency (ER) | payer MEDICAID ==
[~2018-09-25] VITALS: Ht 177.8 cm; Wt 73.0 kg
[2018-09-25] MEDS ORDERED: IPRATROPIUM BROMIDE (0.02%) 0.5MG/2.5ML NEB HHN STA (02:42)
[2018-09-25] MEDS ORDERED: ALBUTEROL (0.083%) 2.5MG/3ML NEB HHN STA (02:42)
[2018-09-25] MEDS ORDERED: PREDNISONE 20MG TABLET PO STA (02:42)
[2018-09-25] MEDS ORDERED: IBUPROFEN 600MG TABLET PO ONE (12:00)
[2018-09-25 13:50] VITALS: BP 110/75
== END 2018-09-25 14:57 | disposition home or self-care (01) ==
LOC: ER 02:29
DX: J45.901 Unspecified asthma with (acute) exacerbation (principal); G40.909 Epilepsy, unspecified, not intractable, without status epilepticus; Z59.0 Homelessness
CPT/HCPCS: 94640; 99283; J7512; J7611

== ENCOUNTER 2018-09-27 17:52 | Emergency (ER) | payer MEDICAID ==
[~2018-09-27] VITALS: Ht 180.3 cm; Wt 73.0 kg
[2018-09-27] MEDS ORDERED: PREDNISONE 20MG TABLET PO STA (19:05)
[2018-09-27] MEDS ORDERED: ALBUTEROL (0.083%) 2.5MG/3ML NEB HHN STA (19:05)
[2018-09-27] MEDS ORDERED: IPRATROPIUM BROMIDE (0.02%) 0.5MG/2.5ML NEB HHN STA (19:05)
[2018-09-27 20:38] VITALS: BP 114/70
== END 2018-09-27 20:41 | disposition home or self-care (01) ==
LOC: ER 17:52
DX: J45.901 Unspecified asthma with (acute) exacerbation (principal); R45.1 Restlessness and agitation; Z78.1 Physical restraint status; R03.0 Elevated blood-pressure reading, without diagnosis of hypertension; F17.210 Nicotine dependence, cigarettes, uncomplicated; Z59.0 Homelessness
CPT/HCPCS: 93005; 94640; 99283; J7512; J7611

== ENCOUNTER 2018-10-05 20:27 | Emergency (ER) | payer MEDICAID ==
[~2018-10-05] VITALS: Ht 182.9 cm; Wt 77.0 kg
[2018-10-05] MEDS ORDERED: ALBUTEROL (0.083%) 2.5MG/3ML NEB HHN STA (22:46)
[2018-10-05] MEDS ORDERED: IPRATROPIUM BROMIDE (0.02%) 0.5MG/2.5ML NEB HHN STA (22:46)
[2018-10-05] MEDS ORDERED: PREDNISONE 20MG TABLET PO STA (22:46)
[2018-10-05] MEDS ORDERED: SODIUM CHLORIDE 0.9% 1,000 ML IV ONE (23:19)
[2018-10-05 23:52] LABS: BASOPHILS % 0.4 % (0.0-2.0); EOSINOPHILS % 1.8 % (0.0-5.0); HEMATOCRIT. 37.6 % (42.0-52.0); HEMOGLOBIN. 12.3 g/dL (14.0-18.0); LYMPHOCYTES % 16.4 % (20.0-50.0); MEAN CORPUSCULAR HEMOGLOBIN 28.3 pg (28.0-32.0); MEAN CORPUSCULAR VOLUME 86.7 fL (80.0-94.0); MEAN PLATELET VOLUME 7.6 fl (7.4-10.4); MONOCYTES % 9.7 % (2.0-8.0); NEUTROPHILS % 71.7 % (40.0-76.0); PLATELET 214 x1000/uL (130-400); RED BLOOD CELL COUNT 4.34 mill/uL (4.7-6.1); RED CELL DISTRIBUTION WIDTH 13.1 % (11.6-14.6)
[2018-10-06] LABS: CHLORIDE 103 mEq/L (98-107)
[2018-10-06 04:09] VITALS: BP 95/47
== END 2018-10-06 06:19 | disposition home or self-care (01) ==
LOC: ER 20:59
DX: J45.901 Unspecified asthma with (acute) exacerbation (principal); E86.0 Dehydration; R73.9 Hyperglycemia, unspecified; F17.210 Nicotine dependence, cigarettes, uncomplicated; Z59.0 Homelessness
CPT/HCPCS: 36415; 71045; 80053; 83880; 84484; 85025; 93005; 94640; 96360; 99284; J7030; J7512; J7611

== ENCOUNTER 2018-10-16 14:25 | Inpatient (IN) | payer MEDICAID ==
[~2018-10-16] VITALS: Ht 190.5 cm; Wt 70.4 kg
[2018-10-16] MEDS ORDERED: METHYLPREDNISOLONE SOD SUCC 125 MG/2 ML VIAL IV STA (14:56)
[2018-10-16] MEDS ORDERED: IPRATROPIUM BROMIDE (0.02%) 0.5MG/2.5ML NEB HHN STA (14:56)
[2018-10-16] MEDS ORDERED: ALBUTEROL (0.083%) 2.5MG/3ML NEB HHN STA (14:56)
[2018-10-16] MEDS ORDERED: ASPIRIN 81MG TABLET PO ONE (15:00)
[2018-10-16 17:30] LABS: CHLORIDE 102 mEq/L (98-107)
[2018-10-16 17:36] LABS: PARTIAL THROMBOPLASTIN TIME 28.7 sec (23.4-31.0); PROTHROMBIN TIME 10.2 sec (9.1-11.1)
[2018-10-16 17:37] LABS: BASOPHILS % 0.3 % (0.0-2.0); EOSINOPHILS % 1.5 % (0.0-5.0); HEMATOCRIT. 40.1 % (42.0-52.0); HEMOGLOBIN. 13.3 g/dL (14.0-18.0); LYMPHOCYTES % 8.1 % (20.0-50.0); MEAN CORPUSCULAR HEMOGLOBIN 28.5 pg (28.0-32.0); MEAN CORPUSCULAR VOLUME 85.8 fL (80.0-94.0); MEAN PLATELET VOLUME 7.1 fl (7.4-10.4); MONOCYTES % 2.8 % (2.0-8.0); NEUTROPHILS % 87.3 % (40.0-76.0); PLATELET 259 x1000/uL (130-400); RED BLOOD CELL COUNT 4.67 mill/uL (4.7-6.1); RED CELL DISTRIBUTION WIDTH 13.5 % (11.6-14.6)
[2018-10-16] MEDS ORDERED: ACETAMINOPHEN 325MG TABLET PO PRN (22:15)
[2018-10-16] MEDS ORDERED: CLONIDINE 0.1MG TABLET PO PRN (22:15)
[2018-10-16] MEDS ORDERED: IPRATROPIUM/ALBUTEROL 0.5-3(2.5)MG/3ML NEB INH PRN (22:15)
[2018-10-16] MEDS ORDERED: GUAIFENESIN 200MG/10ML SUGAR FREE UDC PO PRN (22:15)
[2018-10-16] MEDS ORDERED: DOCUSATE SODIUM 100MG CAPSULE PO PRN (22:15)
[2018-10-16] MEDS ORDERED: MAGNESIUM/ALUMINUM HYDROXIDE/SIMETHICONE 30ML UDC PO PRN (22:15)
[2018-10-16] MEDS ORDERED: HYDROCODONE/ACETAMINOPHEN 5/325MG TABLET PO PRN (22:15)
[2018-10-16] MEDS ORDERED: MORPHINE SULFATE 4 MG/ML CPJ (NOT FOR IM USE) IV PRN (22:15)
[2018-10-16] MEDS ORDERED: ONDANSETRON HCL 4MG/2ML INJ IV PRN (22:15)
[2018-10-16] MEDS ORDERED: NA PHOS,M-B/NA PHOS,DI-BA ENEMA 118ML PR PRN (22:15)
[2018-10-16] MEDS ORDERED: LORAZEPAM 2MG/ML CPJ IV PRN (22:15)
[2018-10-16] MEDS ORDERED: LEVOFLOXACIN 500MG PREMIX 100 ML IV SCH (22:15)
[2018-10-16 22:55] VITALS: BP 146/82
[2018-10-17] VITALS: BP 146/82
[2018-10-17] MEDS: METHYLPREDNISOLONE SOD SUCC 125 MG/2 ML VIAL IV SCH ×3 (00:32→12:20)
[2018-10-17] MEDS ORDERED: LEVOFLOXACIN 500MG PREMIX 100 ML IV SCH (01:00)
[2018-10-17 07:30] LABS: HEMATOCRIT. 39.3 % (42.0-52.0); HEMOGLOBIN. 12.8 g/dL (14.0-18.0); MEAN CORPUSCULAR HEMOGLOBIN 28.2 pg (28.0-32.0); MEAN CORPUSCULAR VOLUME 86.4 fL (80.0-94.0); MEAN PLATELET VOLUME 7.5 fl (7.4-10.4); PLATELET 258 x1000/uL (130-400); RED BLOOD CELL COUNT 4.55 mill/uL (4.7-6.1); RED CELL DISTRIBUTION WIDTH 13.5 % (11.6-14.6)
[2018-10-17 07:50] LABS: CHLORIDE 100 mEq/L (98-107)
[2018-10-17 08:00] VITALS: BP 147/93
[2018-10-17 08:02] LABS: LDL CHOLESTEROL 48 mg/dL (5-100)
[2018-10-17 08:03] LABS: HDL CHOLESTEROL 104 mg/dL (40-59); T4 FREE 0.92 ng/dL (0.76-1.46)
[2018-10-17] MEDS ORDERED: ASPIRIN 81MG EC TABLET PO SCH (09:00)
[2018-10-17] MEDS ORDERED: ENOXAPARIN 40MG/0.4ML SYR SUBCUT SCH (09:00)
[2018-10-17 12:00] VITALS: BP 131/71
[2018-10-17 15:52] VITALS: BP 141/93
[2018-10-17 16:00] VITALS: BP 141/93
[2018-10-17] MEDS ORDERED: PREDNISONE 20MG TABLET PO SCH (17:00)
[2018-10-17] MEDS ORDERED: IPRATROPIUM/ALBUTEROL 0.5-3(2.5)MG/3ML NEB HHN SCH (18:00)
[2018-10-18 13:05] LABS: PLATELET ESTIMATE NORMAL
== END 2018-10-17 17:22 | disposition short-term general hospital (02) | DRG 140 ==
LOC: ER 14:25 → 6WST 18:00 → ENRESERV 21:23
PROVIDERS: ADMIT Internal Medicine; ATTEND Internal Medicine
DX: J44.1 Chronic obstructive pulmonary disease with (acute) exacerbation (principal); J96.00 Acute respiratory failure, unspecified whether with hypoxia or hypercapnia; F41.9 Anxiety disorder, unspecified; D64.9 Anemia, unspecified; G40.909 Epilepsy, unspecified, not intractable, without status epilepticus; I10 Essential (primary) hypertension; Z87.891 Personal history of nicotine dependence
CPT/HCPCS: 36415; 71045; 80061; 83036; 83880; 84439; 84443; 84484; 93005; 93306; 93970; 94640; 96374; 99285; J1650; J1956; J2930; J7050; J7611

== ENCOUNTER 2018-11-28 18:01 | Emergency (ER) | payer MEDICAID, SELFPAY ==
[~2018-11-28] VITALS: Ht 172.7 cm; Wt 76.0 kg
[2018-11-28] MEDS ORDERED: PREDNISONE 20MG TABLET PO ONE (18:45)
[2018-11-28 19:34] LABS: BASOPHILS % 0.9 % (0.0-2.0); EOSINOPHILS % 8.2 % (0.0-5.0); HEMATOCRIT. 41.2 % (42.0-52.0); HEMOGLOBIN. 13.3 g/dL (14.0-18.0); LYMPHOCYTES % 32.4 % (20.0-50.0); MEAN CORPUSCULAR HEMOGLOBIN 27.9 pg (28.0-32.0); MEAN CORPUSCULAR VOLUME 86.4 fL (80.0-94.0); MEAN PLATELET VOLUME 7.6 fl (7.4-10.4); NEUTROPHILS % 46.5 % (40.0-76.0); PLATELET 225 x1000/uL (130-400); RED BLOOD CELL COUNT 4.76 mill/uL (4.7-6.1); RED CELL DISTRIBUTION WIDTH 13.5 % (11.6-14.6)
[2018-11-28 19:35] LABS: CHLORIDE 105 mEq/L (98-107)
[2018-11-29 08:29] VITALS: BP 132/82
== END 2018-11-29 08:35 | disposition home or self-care (01) ==
LOC: ER 18:01
DX: J44.9 Chronic obstructive pulmonary disease, unspecified (principal); Z59.0 Homelessness
CPT/HCPCS: 36415; 71045; 80053; 85025; 99284; J7512

== ENCOUNTER 2018-11-30 17:36 | Emergency (ER) | payer SELFPAY ==
[~2018-11-30] VITALS: Ht 172.7 cm; Wt 68.0 kg
[2018-11-30 17:37] VITALS: BP 164/106
[2018-11-30] MEDS ORDERED: IPRATROPIUM BROMIDE (0.02%) 0.5MG/2.5ML NEB HHN STA (18:05)
[2018-11-30] MEDS ORDERED: PREDNISONE 20MG TABLET PO STA (18:05)
[2018-11-30] MEDS ORDERED: ALBUTEROL (0.083%) 2.5MG/3ML NEB HHN STA (18:05)
== END 2018-11-30 18:40 | disposition home or self-care (01) ==
LOC: ER 17:36
DX: J45.901 Unspecified asthma with (acute) exacerbation (principal); F17.210 Nicotine dependence, cigarettes, uncomplicated
CPT/HCPCS: 99283; 99406; J7512; J7611

== ENCOUNTER 2018-12-03 18:12 | Emergency (ER) | payer SELFPAY ==
[~2018-12-03] VITALS: Ht 177.8 cm; Wt 80.0 kg
[2018-12-03] MEDS ORDERED: PREDNISONE 20MG TABLET PO ONE (19:15)
[2018-12-04 01:10] VITALS: BP 95/65
== END 2018-12-04 06:37 | disposition home or self-care (01) ==
LOC: ER 18:12
DX: J45.901 Unspecified asthma with (acute) exacerbation (principal); L29.9 Pruritus, unspecified; Z59.0 Homelessness
CPT/HCPCS: 99283; J7512

== ENCOUNTER 2018-12-11 10:59 | Emergency (ER) | payer SELFPAY ==
[~2018-12-11] VITALS: Ht 175.3 cm; Wt 75.0 kg
[2018-12-11] MEDS ORDERED: PREDNISONE 20MG TABLET PO STA (11:54)
[2018-12-11] MEDS ORDERED: ALBUTEROL (0.083%) 2.5MG/3ML NEB HHN STA (11:54)
[2018-12-11] MEDS ORDERED: IPRATROPIUM BROMIDE (0.02%) 0.5MG/2.5ML NEB HHN STA (11:54)
[2018-12-11 13:04] VITALS: BP 150/84
== END 2018-12-11 13:11 | disposition home or self-care (01) ==
LOC: ER 10:59
DX: J45.901 Unspecified asthma with (acute) exacerbation (principal); R03.0 Elevated blood-pressure reading, without diagnosis of hypertension; R00.0 Tachycardia, unspecified; F19.10 Other psychoactive substance abuse, uncomplicated; Z59.0 Homelessness
CPT/HCPCS: 71045; 99283; J7512; Z7610

== ENCOUNTER 2018-12-13 23:13 | Emergency (ER) | payer SELFPAY ==
[~2018-12-13] VITALS: Ht 180.3 cm; Wt 67.0 kg
[2018-12-14] MEDS ORDERED: ALBUTEROL (0.083%) 2.5MG/3ML NEB HHN STA (03:18)
[2018-12-14] MEDS ORDERED: METHYLPREDNISOLONE SOD SUCC 125 MG/2 ML VIAL IV STA (03:18)
[2018-12-14] MEDS ORDERED: IPRATROPIUM BROMIDE (0.02%) 0.5MG/2.5ML NEB HHN STA (03:18)
[2018-12-14] MEDS ORDERED: ASPIRIN 81MG TABLET PO ONE (03:30)
[2018-12-14 03:42] LABS: BASOPHILS % 0.5 % (0.0-2.0); EOSINOPHILS % 3.9 % (0.0-5.0); HEMATOCRIT. 39.9 % (42.0-52.0); HEMOGLOBIN. 13.4 g/dL (14.0-18.0); LYMPHOCYTES % 26.2 % (20.0-50.0); MEAN CORPUSCULAR HEMOGLOBIN 28.9 pg (28.0-32.0); MEAN CORPUSCULAR VOLUME 86.3 fL (80.0-94.0); MEAN PLATELET VOLUME 7.3 fl (7.4-10.4); NEUTROPHILS % 60.4 % (40.0-76.0); PLATELET 227 x1000/uL (130-400); RED BLOOD CELL COUNT 4.63 mill/uL (4.7-6.1); RED CELL DISTRIBUTION WIDTH 13.8 % (11.6-14.6)
[2018-12-14 03:48] LABS: CHLORIDE 104 mEq/L (98-107)
[2018-12-14 05:00] VITALS: BP 124/77
== END 2018-12-14 05:45 | disposition home or self-care (01) ==
LOC: ER 23:13
DX: R06.02 Shortness of breath (principal); J44.9 Chronic obstructive pulmonary disease, unspecified
CPT/HCPCS: 36415; 71045; 80053; 83880; 84484; 85025; 94640; 96374; 99284; J2930; J7611; Z7610

== ENCOUNTER 2018-12-20 18:51 | Inpatient (IN) | payer MEDICAID ==
[~2018-12-20] VITALS: Ht 172.7 cm; Wt 74.8 kg
[2018-12-20] MEDS ORDERED: METHYLPREDNISOLONE SOD SUCC 125 MG/2 ML VIAL IV ONE (19:30)
[2018-12-20] MEDS ORDERED: ALBUTEROL (0.083%) 2.5MG/3ML NEB HHN ONE (19:30)
[2018-12-20 19:38] LABS: BASOPHILS % 0.7 % (0.0-2.0); EOSINOPHILS % 5.1 % (0.0-5.0); HEMATOCRIT. 44.6 % (42.0-52.0); HEMOGLOBIN. 14.8 g/dL (14.0-18.0); LYMPHOCYTES % 26.5 % (20.0-50.0); MEAN CORPUSCULAR HEMOGLOBIN 28.6 pg (28.0-32.0); MEAN PLATELET VOLUME 7.5 fl (7.4-10.4); MONOCYTES % 11.5 % (2.0-8.0); NEUTROPHILS % 56.2 % (40.0-76.0); PLATELET 230 x1000/uL (130-400); RED BLOOD CELL COUNT 5.18 mill/uL (4.7-6.1); RED CELL DISTRIBUTION WIDTH 13.5 % (11.6-14.6)
[2018-12-20 19:54] LABS: CHLORIDE 104 mEq/L (98-107)
[2018-12-20] MEDS ORDERED: LORAZEPAM 2MG/ML CPJ IV PRN (22:15)
[2018-12-20] MEDS ORDERED: HYDROCODONE/ACETAMINOPHEN 5/325MG TABLET PO PRN (22:15)
[2018-12-20] MEDS ORDERED: CLONIDINE 0.1MG TABLET PO PRN (22:15)
[2018-12-20] MEDS ORDERED: DIPHENHYDRAMINE 50MG/ML VIAL IV PRN (22:15)
[2018-12-20] MEDS ORDERED: ONDANSETRON HCL 4MG/2ML INJ IV PRN (22:15)
[2018-12-20] MEDS ORDERED: IPRATROPIUM/ALBUTEROL 0.5-3(2.5)MG/3ML NEB INH PRN (22:15)
[2018-12-20] MEDS ORDERED: AZITHROMYCIN 500 MG in DEXT 5% WATER 250 ML IV SCH (22:15)
[2018-12-20] MEDS ORDERED: CEFTRIAXONE 1 G PREMIX 50 ML IV SCH (22:15)
[2018-12-21 04:22] LABS: CLARITY URINE CLEAR (CLEAR); COLOR URINE YELLOW (YELLOW); KETONES URINE NEGATIVE (NEGATIVE); LEUKOCYTE ESTERASE URINE NEGATIVE (NEGATIVE); NITRITE URINE NEGATIVE (NEGATIVE); OCCULT BLOOD URINE NEGATIVE (NEGATIVE); PH URINE 5.5 (4.5-8.0); PROTEIN URINE NEGATIVE (NEGATIVE); UROBILINOGEN URINE 0.2 E.U./dL (0.2-1.0)
[2018-12-21 04:32] LABS: *AMPHETAMINES SCREEN URINE NEGATIVE (NEGATIVE); *BARBITURATES SCREEN URINE NEGATIVE (NEGATIVE)
[2018-12-21 04:33] LABS: *BENZODIAZEPINES SCREEN URINE NEGATIVE (NEGATIVE); *COCAINE SCREEN URINE PRESUMTIVE POSITIVE (NEGATIVE); METHADONE URINE SCREEN NEGATIVE (NEGATIVE); OPIATES URINE SCREEN NEGATIVE (NEGATIVE); PHENCYCLIDINE URINE SCREEN NEGATIVE (NEGATIVE)
[2018-12-21 04:34] LABS: CANNABINOID URINE SCREEN NEGATIVE (NEGATIVE)
[2018-12-21 06:20] LABS: CREATINE KINASE 102 IU/L (39-308)
[2018-12-21 08:00] VITALS: BP 151/91
[2018-12-21] MEDS: THIAMINE HCL 100MG TABLET PO SCH (10:21)
[2018-12-21] MEDS: FOLIC ACID 1MG TABLET PO SCH (10:21)
[2018-12-21] MEDS: METHYLPREDNISOLONE SOD SUCC 125 MG/2 ML VIAL IV SCH ×4 (10:22→23:50)
[2018-12-21] MEDS ORDERED: PROMETHAZINE/DEXTROMETHORPHAN 6.25-15MG/5ML BOTTLE 120ML PO PRN (10:30)
[2018-12-21] MEDS: ASPIRIN 81MG EC TABLET PO SCH (10:35)
[2018-12-21] MEDS: SODIUM CHLORIDE 0.9% 1,000 ML IV SCH ×2 (10:38→23:50)
[2018-12-21] MEDS: CEFTRIAXONE 1 G PREMIX 50 ML IV SCH (10:56)
[2018-12-21 12:00] VITALS: BP 129/79
[2018-12-21] MEDS: AZITHROMYCIN 500 MG in DEXT 5% WATER 250 ML IV SCH (12:56)
[2018-12-21 16:00] VITALS: BP 116/58
[2018-12-21] MEDS: ENOXAPARIN 40MG/0.4ML SYR SUBCUT SCH (17:51)
[2018-12-21 20:00] VITALS: BP 131/83
[2018-12-22] VITALS: BP 129/80
[2018-12-22 04:00] VITALS: BP 117/78
[2018-12-22] MEDS: METHYLPREDNISOLONE SOD SUCC 125 MG/2 ML VIAL IV SCH ×4 (05:59→23:52)
[2018-12-22 08:00] VITALS: BP 140/80
[2018-12-22] MEDS: THIAMINE HCL 100MG TABLET PO SCH (08:49)
[2018-12-22] MEDS: FOLIC ACID 1MG TABLET PO SCH (08:49)
[2018-12-22] MEDS: ENOXAPARIN 40MG/0.4ML SYR SUBCUT SCH (08:49)
[2018-12-22] MEDS: ASPIRIN 81MG EC TABLET PO SCH (09:00)
[2018-12-22] MEDS: CEFTRIAXONE 1 G PREMIX 50 ML IV SCH (10:10)
[2018-12-22] MEDS: SODIUM CHLORIDE 0.9% 1,000 ML IV SCH (10:10)
[2018-12-22 10:23] LABS: HEMATOCRIT. 41.1 % (42.0-52.0); HEMOGLOBIN. 13.5 g/dL (14.0-18.0); MEAN CORPUSCULAR HEMOGLOBIN 28.4 pg (28.0-32.0); MEAN CORPUSCULAR VOLUME 86.3 fL (80.0-94.0); MEAN PLATELET VOLUME 7.8 fl (7.4-10.4); PLATELET 237 x1000/uL (130-400); RED BLOOD CELL COUNT 4.77 mill/uL (4.7-6.1); RED CELL DISTRIBUTION WIDTH 13.7 % (11.6-14.6)
[2018-12-22 10:34] LABS: CHLORIDE 101 mEq/L (98-107)
[2018-12-22] MEDS: AZITHROMYCIN 500 MG in DEXT 5% WATER 250 ML IV SCH (10:37)
[2018-12-22 10:42] LABS: CREATINE KINASE 88 IU/L (39-308)
[2018-12-22 10:44] LABS: CREATINE KINASE MB FRACTION 1.8 ng/mL (0.5-3.6)
[2018-12-22 12:00] VITALS: BP 130/73
[2018-12-22 16:00] VITALS: BP 161/96
[2018-12-22 20:00] VITALS: BP 103/57
[2018-12-23] VITALS: BP 133/80
[2018-12-23 04:00] VITALS: BP 125/75
[2018-12-23] MEDS: METHYLPREDNISOLONE SOD SUCC 125 MG/2 ML VIAL IV SCH ×2 (05:40→12:11)
[2018-12-23 08:00] VITALS: BP 134/71
[2018-12-23] MEDS: THIAMINE HCL 100MG TABLET PO SCH (08:51)
[2018-12-23] MEDS: ENOXAPARIN 40MG/0.4ML SYR SUBCUT SCH (08:51)
[2018-12-23] MEDS: ASPIRIN 81MG EC TABLET PO SCH (08:51)
[2018-12-23] MEDS: FOLIC ACID 1MG TABLET PO SCH (08:51)
[2018-12-23] MEDS: CEFTRIAXONE 1 G PREMIX 50 ML IV SCH (09:47)
[2018-12-23] MEDS: AZITHROMYCIN 500 MG in DEXT 5% WATER 250 ML IV SCH (10:40)
[2018-12-23 12:00] VITALS: BP 135/87
[2018-12-23 13:43] VITALS: BP 135/87
[2018-12-23 13:55] LABS: PLATELET ESTIMATE NORMAL
== END 2018-12-23 14:15 | disposition home or self-care (01) | DRG 816 ==
LOC: ER 18:59 → 8WST 20:57 → EDBEDREQTM 21:03 → EDBEDREQ 21:03 → CANRESERV 22:01 → ENRESERV 22:01 → CANRESERV 22:42 → ENRESERV 22:42
PROVIDERS: ADMIT Internal Medicine Nephrology; ATTEND Internal Medicine Nephrology
DX: T40.5X1A Poisoning by cocaine, accidental (unintentional), initial encounter (principal); J44.0 Chronic obstructive pulmonary disease with (acute) lower respiratory infection; Y92.89 Other specified places as the place of occurrence of the external cause; J44.1 Chronic obstructive pulmonary disease with (acute) exacerbation; F14.10 Cocaine abuse, uncomplicated; J20.9 Acute bronchitis, unspecified; Z59.0 Homelessness; I10 Essential (primary) hypertension; F17.200 Nicotine dependence, unspecified, uncomplicated; Z91.19 Patient's noncompliance with other medical treatment and regimen; Z71.6 Tobacco abuse counseling
CPT/HCPCS: 36415; 71045; 80048; 80305; 82550; 82553; 83880; 84484; 93005; 94640; 96374; 99285; J0456; J0696; J1650; J2930; J7030; J7050; J7060; J7611

== ENCOUNTER 2019-01-05 01:08 | Emergency (ER) | payer MEDICAID ==
[~2019-01-05] VITALS: Ht 180.3 cm; Wt 77.0 kg
[2019-01-05] MEDS ORDERED: SODIUM CHLORIDE 0.9% 1,000 ML IV ONE (02:00)
[2019-01-05] MEDS ORDERED: LORAZEPAM 2MG/ML CPJ IV ONE (02:00)
[2019-01-06 10:50] VITALS: BP 118/64
== END 2019-01-06 11:10 | disposition home or self-care (01) ==
LOC: ER 01:08
DX: R06.02 Shortness of breath (principal); Z59.0 Homelessness; Z60.8 Other problems related to social environment
CPT/HCPCS: 71045; 93005; 96374; 99283; J2060; J7030; Z7610

== ENCOUNTER 2019-01-18 20:59 | Emergency (ER) | payer MEDICAID ==
[~2019-01-18] VITALS: Ht 185.4 cm; Wt 73.0 kg
[2019-01-18] MEDS ORDERED: IPRATROPIUM BROMIDE (0.02%) 0.5MG/2.5ML NEB HHN STA (21:47)
[2019-01-18] MEDS ORDERED: ALBUTEROL (0.083%) 2.5MG/3ML NEB HHN STA (21:47)
[2019-01-18] MEDS ORDERED: METHYLPREDNISOLONE SOD SUCC 125 MG/2 ML VIAL IV STA (21:47)
[2019-01-18] MEDS ORDERED: PREDNISONE 20MG TABLET PO ONE (22:30)
[2019-01-18 23:43] VITALS: BP 112/69
== END 2019-01-18 23:55 | disposition home or self-care (01) ==
LOC: ER 20:59
DX: J44.1 Chronic obstructive pulmonary disease with (acute) exacerbation (principal)
CPT/HCPCS: 71045; 93005; 94644; 99285; J7512; J7611; Z7610

== ENCOUNTER 2019-01-26 16:10 | Emergency (ER) | payer MEDICAID ==
[~2019-01-26] VITALS: Ht 175.3 cm; Wt 64.0 kg
[2019-01-26] MEDS ORDERED: ALBUTEROL (0.083%) 2.5MG/3ML NEB HHN STA (16:39)
[2019-01-26 17:15] LABS: EOSINOPHILS % 4.2 % (0.0-5.0); HEMATOCRIT. 43.2 % (42.0-52.0); HEMOGLOBIN. 14.4 g/dL (14.0-18.0); MEAN CORPUSCULAR HEMOGLOBIN 28.7 pg (28.0-32.0); MEAN CORPUSCULAR VOLUME 85.9 fL (80.0-94.0); MEAN PLATELET VOLUME 7.2 fl (7.4-10.4); MONOCYTES % 12.6 % (2.0-8.0); NEUTROPHILS % 56.2 % (40.0-76.0); PLATELET 223 x1000/uL (130-400); RED BLOOD CELL COUNT 5.03 mill/uL (4.7-6.1); RED CELL DISTRIBUTION WIDTH 13.4 % (11.6-14.6)
[2019-01-26 17:17] LABS: CHLORIDE 102 mEq/L (98-107)
[2019-01-26 17:20] LABS: ETHANOL BLOOD < 10 mg/dL
[2019-01-26] MEDS ORDERED: PREDNISONE 20MG TABLET PO ONE (18:15)
[2019-01-26 18:42] VITALS: BP 113/62
== END 2019-01-26 19:21 | disposition home or self-care (01) ==
LOC: ER 16:10
DX: J44.1 Chronic obstructive pulmonary disease with (acute) exacerbation (principal); R06.03 Acute respiratory distress
CPT/HCPCS: 36415; 71045; 80053; 80320; 85025; 93005; 94640; 99284; J7512; J7611; Z7610; G0480

== ENCOUNTER 2019-01-28 22:04 | Emergency (ER) | payer MEDICAID ==
[~2019-01-28] VITALS: Ht 182.9 cm; Wt 112.0 kg
[2019-01-28] MEDS ORDERED: ALBUTEROL (0.083%) 2.5MG/3ML NEB HHN STA (22:16)
[2019-01-28] MEDS ORDERED: PREDNISONE 20MG TABLET PO STA (22:16)
[2019-01-28] MEDS ORDERED: IPRATROPIUM BROMIDE (0.02%) 0.5MG/2.5ML NEB HHN STA (22:16)
[2019-01-28] MEDS ORDERED: ALBUTEROL (0.5%) 2.5MG/0.5ML NEB HHN ONE (22:44)
[2019-01-28] MEDS ORDERED: IPRATROPIUM/ALBUTEROL 0.5-3(2.5)MG/3ML NEB ONE (22:44)
[2019-01-29 09:00] VITALS: BP 149/83
== END 2019-01-29 09:46 | disposition home or self-care (01) ==
LOC: ER 22:04
DX: J44.1 Chronic obstructive pulmonary disease with (acute) exacerbation (principal); Z59.0 Homelessness
CPT/HCPCS: 94640; 99283; J7512; J7611; J7620; Z7610

== ENCOUNTER 2019-02-06 01:06 | Emergency (ER) | payer MEDICAID ==
[~2019-02-06] VITALS: Ht 177.8 cm; Wt 64.0 kg
[2019-02-06] MEDS ORDERED: IPRATROPIUM BROMIDE (0.02%) 0.5MG/2.5ML NEB HHN STA (04:35)
[2019-02-06] MEDS ORDERED: ALBUTEROL (0.083%) 2.5MG/3ML NEB HHN STA (04:35)
[2019-02-06] MEDS ORDERED: PREDNISONE 20MG TABLET PO STA (04:35)
[2019-02-06 11:30] VITALS: BP 103/62
== END 2019-02-06 14:13 | disposition left against medical advice (07) ==
LOC: ER 01:06
DX: J44.1 Chronic obstructive pulmonary disease with (acute) exacerbation (principal); Z59.0 Homelessness
CPT/HCPCS: 94640; 99283; J7512; J7611; Z7610

== ENCOUNTER 2019-02-09 22:15 | Emergency (ER) | payer MEDICAID ==
[~2019-02-09] VITALS: Ht 188 cm; Wt 77.0 kg
[2019-02-09] MEDS ORDERED: LEVOFLOXACIN 500MG TABLET PO ONE (23:00)
[2019-02-09] MEDS ORDERED: PREDNISONE 20MG TABLET PO ONE (23:00)
[2019-02-09] MEDS ORDERED: IPRATROPIUM/ALBUTEROL 0.5-3(2.5)MG/3ML NEB HHN ONE (23:00)
[2019-02-10 09:21] VITALS: BP 121/81
== END 2019-02-10 13:42 | disposition home or self-care (01) ==
LOC: ER 22:15
DX: J44.1 Chronic obstructive pulmonary disease with (acute) exacerbation (principal); Z72.0 Tobacco use; Z59.0 Homelessness
CPT/HCPCS: 71045; 94640; 99283; J7512; J7620; Z7610

== ENCOUNTER 2019-02-13 18:42 | Emergency (ER) | payer MEDICAID ==
[~2019-02-13] VITALS: Ht 172.7 cm; Wt 79.0 kg
[2019-02-13] MEDS ORDERED: IPRATROPIUM/ALBUTEROL 0.5-3(2.5)MG/3ML NEB HHN ONE (20:15)
[2019-02-13] MEDS ORDERED: PREDNISONE 20MG TABLET PO ONE (20:15)
[2019-02-13 22:49] VITALS: BP 107/73
== END 2019-02-13 22:51 | disposition home or self-care (01) ==
LOC: ER 18:56
DX: J44.1 Chronic obstructive pulmonary disease with (acute) exacerbation (principal); Z87.891 Personal history of nicotine dependence
CPT/HCPCS: 94640; 99283; J7512; J7620; Z7610

== ENCOUNTER 2019-02-21 23:15 | Emergency (ER) | payer MEDICAID ==
[~2019-02-21] VITALS: Ht 188 cm; Wt 77.0 kg
[2019-02-21] MEDS ORDERED: ALBUTEROL (0.083%) 2.5MG/3ML NEB HHN STA (23:49)
[2019-02-21] MEDS ORDERED: SODIUM CHLORIDE 0.9% 1,000 ML IV ONE (23:49)
[2019-02-21] MEDS ORDERED: IPRATROPIUM BROMIDE (0.02%) 0.5MG/2.5ML NEB HHN STA (23:49)
[2019-02-21] MEDS ORDERED: METHYLPREDNISOLONE SOD SUCC 125 MG/2 ML VIAL IV STA (23:49)
[2019-02-22 00:35] LABS: HEMATOCRIT. 40.4 % (42.0-52.0); HEMOGLOBIN. 13.5 g/dL (14.0-18.0); MEAN CORPUSCULAR HEMOGLOBIN 28.5 pg (28.0-32.0); MEAN CORPUSCULAR VOLUME 85.4 fL (80.0-94.0); MEAN PLATELET VOLUME 8.3 fl (7.4-10.4); PLATELET 157 x1000/uL (130-400); RED BLOOD CELL COUNT 4.74 mill/uL (4.7-6.1); RED CELL DISTRIBUTION WIDTH 13.3 % (11.6-14.6)
[2019-02-22 00:40] LABS: CHLORIDE 96 mEq/L (98-107)
[2019-02-22 03:23] LABS: ATYPICAL LYMPHOCYTES 2; PLATELET ESTIMATE NORMAL
[2019-02-22] MEDS ORDERED: IPRATROPIUM BROMIDE (0.02%) 0.5MG/2.5ML NEB HHN NR (04:45)
[2019-02-22] MEDS ORDERED: ALBUTEROL (0.083%) 2.5MG/3ML NEB HHN NR (04:45)
[2019-02-22 05:44] VITALS: BP 110/72
== END 2019-02-22 05:40 | disposition home or self-care (01) ==
LOC: ER 23:15
DX: J44.1 Chronic obstructive pulmonary disease with (acute) exacerbation (principal); D72.819 Decreased white blood cell count, unspecified
CPT/HCPCS: 36415; 71045; 80053; 85025; 93005; 94644; 96374; 99285; J2930; J7030; J7611; Z7610

== ENCOUNTER 2019-02-25 12:42 | Emergency (ER) | payer MEDICAID ==
[~2019-02-25] VITALS: Ht 185.4 cm; Wt 86.0 kg
[2019-02-25] MEDS ORDERED: DIPHENHYDRAMINE 25MG CAPSULE PO ONE (16:30)
[2019-02-25 19:35] VITALS: BP 94/52
== END 2019-02-25 20:53 | disposition left against medical advice (07) ==
LOC: ER 12:42
DX: L25.9 Unspecified contact dermatitis, unspecified cause (principal); Z59.0 Homelessness
CPT/HCPCS: 99283; Q0163

== ENCOUNTER 2019-03-14 21:50 | Emergency (ER) | payer MEDICAID ==
[~2019-03-14] VITALS: Ht 182.9 cm; Wt 73.0 kg
[2019-03-14] MEDS ORDERED: IPRATROPIUM BROMIDE (0.02%) 0.5MG/2.5ML NEB HHN STA (22:22)
[2019-03-14] MEDS ORDERED: ALBUTEROL (0.083%) 2.5MG/3ML NEB HHN STA (22:22)
[2019-03-14] MEDS ORDERED: METHYLPREDNISOLONE SOD SUCC 125 MG/2 ML VIAL IV STA (22:22)
[2019-03-14 23:31] LABS: HEMATOCRIT. 38.4 % (42.0-52.0); HEMOGLOBIN. 12.9 g/dL (14.0-18.0); MEAN CORPUSCULAR HEMOGLOBIN 28.6 pg (28.0-32.0); MEAN PLATELET VOLUME 7.1 fl (7.4-10.4); PLATELET 206 x1000/uL (130-400); RED BLOOD CELL COUNT 4.52 mill/uL (4.7-6.1); RED CELL DISTRIBUTION WIDTH 13.6 % (11.6-14.6)
[2019-03-14 23:38] LABS: CHLORIDE 103 mEq/L (98-107)
[2019-03-15 02:07] LABS: PLATELET ESTIMATE NORMAL
[2019-03-15 14:19] VITALS: BP 119/71
== END 2019-03-15 14:24 | disposition home or self-care (01) ==
LOC: ER 22:00
DX: J45.901 Unspecified asthma with (acute) exacerbation (principal); Z59.0 Homelessness
CPT/HCPCS: 36415; 71045; 80053; 83880; 84484; 85025; 93005; 94640; 99284; J2930; J7611; Z7610

== ENCOUNTER 2019-03-19 21:42 | Emergency (ER) | payer MEDICAID ==
[~2019-03-19] VITALS: Ht 182.9 cm; Wt 59.0 kg
[2019-03-19 21:59] VITALS: BP 134/84
[2019-03-20] MEDS ORDERED: ALBUTEROL (0.5%) 2.5MG/0.5ML NEB HHN ONE (02:30)
[2019-03-20] MEDS ORDERED: ALBUTEROL (0.5%) 2.5MG/0.5ML NEB HHN NR (04:15)
== END 2019-03-20 06:18 | disposition home or self-care (01) ==
LOC: ER 21:42
DX: J45.909 Unspecified asthma, uncomplicated (principal); R03.0 Elevated blood-pressure reading, without diagnosis of hypertension
CPT/HCPCS: 94640; 99283; J7611; Z7610

== ENCOUNTER 2019-03-24 01:14 | Emergency (ER) | payer MEDICAID ==
[~2019-03-24] VITALS: Ht 175.3 cm; Wt 75.0 kg
[2019-03-24] MEDS ORDERED: ALBUTEROL (0.083%) 2.5MG/3ML NEB HHN STA (03:59)
[2019-03-24] MEDS ORDERED: IPRATROPIUM BROMIDE (0.02%) 0.5MG/2.5ML NEB HHN STA (03:59)
[2019-03-24] MEDS ORDERED: METHYLPREDNISOLONE SOD SUCC 125 MG/2 ML VIAL IV STA (03:59)
[2019-03-24 04:21] LABS: HEMATOCRIT. 38.3 % (42.0-52.0); HEMOGLOBIN. 12.7 g/dL (14.0-18.0); MEAN CORPUSCULAR HEMOGLOBIN 28.5 pg (28.0-32.0); MEAN PLATELET VOLUME 6.8 fl (7.4-10.4); PLATELET 251 x1000/uL (130-400); RED BLOOD CELL COUNT 4.46 mill/uL (4.7-6.1); RED CELL DISTRIBUTION WIDTH 13.8 % (11.6-14.6)
[2019-03-24 04:28] LABS: CHLORIDE 108 mEq/L (98-107)
[2019-03-24 05:04] LABS: PLATELET ESTIMATE NORMAL
[2019-03-24] MEDS ORDERED: IPRATROPIUM/ALBUTEROL 0.5-3(2.5)MG/3ML NEB HHN ONE (06:00)
[2019-03-25 11:34] VITALS: BP 140/89
== END 2019-03-25 13:45 | disposition home or self-care (01) ==
LOC: ER 01:14
DX: J44.1 Chronic obstructive pulmonary disease with (acute) exacerbation (principal); R56.9 Unspecified convulsions
CPT/HCPCS: 36415; 71045; 80053; 85025; 93005; 94640; 96374; 99284; J2930; J7611; J7620; Z7610

== ENCOUNTER 2019-03-27 05:09 | Emergency (ER) | payer MEDICAID ==
[~2019-03-27] VITALS: Ht 185.4 cm; Wt 64.0 kg
[2019-03-27] MEDS ORDERED: ALBUTEROL (0.083%) 2.5MG/3ML NEB HHN STA (06:11)
[2019-03-27] MEDS ORDERED: IPRATROPIUM BROMIDE (0.02%) 0.5MG/2.5ML NEB HHN STA (06:11)
[2019-03-27] MEDS ORDERED: PREDNISONE 20MG TABLET PO ONE (06:30)
[2019-03-27 09:19] VITALS: BP 118/82
== END 2019-03-27 09:30 | disposition home or self-care (01) ==
LOC: ER 05:09
DX: J44.1 Chronic obstructive pulmonary disease with (acute) exacerbation (principal)
CPT/HCPCS: 71045; 94640; 99283; J7512; J7611; Z7610

== ENCOUNTER 2019-03-31 19:06 | Emergency (ER) | payer MEDICAID ==
[~2019-03-31] VITALS: Ht 177.8 cm; Wt 85.0 kg
[2019-03-31] MEDS ORDERED: ALBUTEROL (0.083%) 2.5MG/3ML NEB HHN STA (20:48)
[2019-03-31] MEDS ORDERED: IPRATROPIUM BROMIDE (0.02%) 0.5MG/2.5ML NEB HHN STA (20:48)
[2019-03-31] MEDS ORDERED: ALBUTEROL (0.5%) 2.5MG/0.5ML NEB HHN ONE (20:55)
[2019-03-31] MEDS ORDERED: IPRATROPIUM/ALBUTEROL 0.5-3(2.5)MG/3ML NEB ONE (20:56)
[2019-03-31] MEDS ORDERED: PREDNISONE 20MG TABLET PO ONE (21:00)
[2019-04-01 10:52] VITALS: BP 106/67
== END 2019-04-01 11:06 | disposition home or self-care (01) ==
LOC: ER 19:06
DX: J44.1 Chronic obstructive pulmonary disease with (acute) exacerbation (principal); F17.200 Nicotine dependence, unspecified, uncomplicated
CPT/HCPCS: 71045; 93005; 94644; 99285; J7512; J7611; J7620; Z7610

== ENCOUNTER 2019-04-03 07:35 | Emergency (ER) | payer MEDICAID ==
[~2019-04-03] VITALS: Ht 170.2 cm; Wt 82.0 kg
[2019-04-03] MEDS ORDERED: IPRATROPIUM BROMIDE (0.02%) 0.5MG/2.5ML NEB HHN STA (07:49)
[2019-04-03] MEDS ORDERED: ALBUTEROL (0.083%) 2.5MG/3ML NEB HHN STA (07:49)
[2019-04-03] MEDS ORDERED: PREDNISONE 20MG TABLET PO STA (07:49)
[2019-04-03] MEDS ORDERED: ACETAMINOPHEN 325MG TABLET PO ONE (08:00)
[2019-04-03 09:50] VITALS: BP 128/76
== END 2019-04-03 10:04 | disposition home or self-care (01) ==
LOC: ER 07:35
DX: R51 Headache (principal); J45.901 Unspecified asthma with (acute) exacerbation
CPT/HCPCS: 94640; 99283; J7512; J7611; Z7610

== ENCOUNTER 2019-04-11 20:09 | Emergency (ER) | payer MEDICAID ==
[~2019-04-11] VITALS: Ht 175.3 cm; Wt 73.0 kg
[2019-04-11 22:53] LABS: CHLORIDE 103 mEq/L (98-107)
[2019-04-11 22:54] LABS: BASOPHILS % 0.9 % (0.0-2.0); EOSINOPHILS % 4.5 % (0.0-5.0); HEMATOCRIT. 36.8 % (42.0-52.0); HEMOGLOBIN. 12.4 g/dL (14.0-18.0); MEAN CORPUSCULAR HEMOGLOBIN 28.7 pg (28.0-32.0); MEAN CORPUSCULAR VOLUME 85.3 fL (80.0-94.0); MEAN PLATELET VOLUME 7.2 fl (7.4-10.4); MONOCYTES % 14.7 % (2.0-8.0); NEUTROPHILS % 48.9 % (40.0-76.0); PLATELET 242 x1000/uL (130-400); RED BLOOD CELL COUNT 4.32 mill/uL (4.7-6.1); RED CELL DISTRIBUTION WIDTH 13.5 % (11.6-14.6)
[2019-04-12] MEDS ORDERED: METHYLPREDNISOLONE SOD SUCC 40 MG/ML VIAL IV ONE (01:00)
[2019-04-12] MEDS ORDERED: IPRATROPIUM/ALBUTEROL 0.5-3(2.5)MG/3ML NEB HHN ONE (01:00)
[2019-04-12 01:38] LABS: CLARITY URINE CLEAR (CLEAR); COLOR URINE YELLOW (YELLOW); KETONES URINE NEGATIVE (NEGATIVE); LEUKOCYTE ESTERASE URINE NEGATIVE (NEGATIVE); NITRITE URINE NEGATIVE (NEGATIVE); OCCULT BLOOD URINE NEGATIVE (NEGATIVE); PH URINE 6.5 (4.5-8.0); PROTEIN URINE NEGATIVE (NEGATIVE); SPECIFIC GRAVITY URINE 1.019 (1.005-1.030)
[2019-04-12 02:07] LABS: *AMPHETAMINES SCREEN URINE NEGATIVE (NEGATIVE); *BARBITURATES SCREEN URINE NEGATIVE (NEGATIVE); *BENZODIAZEPINES SCREEN URINE NEGATIVE (NEGATIVE); *COCAINE SCREEN URINE PRESUMTIVE POSITIVE (NEGATIVE); METHADONE URINE SCREEN NEGATIVE (NEGATIVE)
[2019-04-12 02:08] LABS: CANNABINOID URINE SCREEN NEGATIVE (NEGATIVE); OPIATES URINE SCREEN NEGATIVE (NEGATIVE); PHENCYCLIDINE URINE SCREEN NEGATIVE (NEGATIVE)
[2019-04-12] MEDS ORDERED: METHYLPREDNISOLONE SOD SUCC 40 MG/ML VIAL IV SCH (05:30)
[2019-04-12 09:16] VITALS: BP 120/70
== END 2019-04-12 15:30 | disposition left against medical advice (07) ==
LOC: ER 20:09
DX: J44.1 Chronic obstructive pulmonary disease with (acute) exacerbation (principal); E86.0 Dehydration; D63.8 Anemia in other chronic diseases classified elsewhere; E46 Unspecified protein-calorie malnutrition; G40.909 Epilepsy, unspecified, not intractable, without status epilepticus; D72.819 Decreased white blood cell count, unspecified; N17.0 Acute kidney failure with tubular necrosis; F32.9 Major depressive disorder, single episode, unspecified; K00.7 Teething syndrome; F14.10 Cocaine abuse, uncomplicated; R06.03 Acute respiratory distress; R79.89 Other specified abnormal findings of blood chemistry; Z68.23 Body mass index [BMI] 23.0-23.9, adult; Z59.0 Homelessness; Z72.0 Tobacco use
CPT/HCPCS: 36415; 71045; 80053; 80305; 81003; 83605; 83880; 84484; 85025; 87040; 87086; 93005; 94640; 96374; 99284; J2920; J7620; Z7610

== ENCOUNTER 2019-04-24 05:36 | Emergency (ER) | payer MEDICAID ==
[~2019-04-24] VITALS: Ht 182.9 cm; Wt 86.0 kg
[2019-04-24] MEDS ORDERED: PREDNISONE 20MG TABLET PO STA (06:35)
[2019-04-24] MEDS ORDERED: ALBUTEROL (0.083%) 2.5MG/3ML NEB HHN STA (06:35)
[2019-04-24] MEDS ORDERED: IPRATROPIUM BROMIDE (0.02%) 0.5MG/2.5ML NEB HHN STA (06:35)
[2019-04-25 13:46] VITALS: BP 129/70
== END 2019-04-25 13:52 | disposition home or self-care (01) ==
LOC: ER 05:36
DX: J45.901 Unspecified asthma with (acute) exacerbation (principal); F17.200 Nicotine dependence, unspecified, uncomplicated; J45.909 Unspecified asthma, uncomplicated
CPT/HCPCS: 71045; 94640; 99283; J7512; J7611; Z7610

== ENCOUNTER 2019-04-29 16:25 | Emergency (ER) | payer MEDICAID ==
[~2019-04-29] VITALS: Ht 180.3 cm; Wt 84.0 kg
[2019-04-29] MEDS ORDERED: PREDNISONE 20MG TABLET PO STA (16:38)
[2019-04-29] MEDS ORDERED: IPRATROPIUM BROMIDE (0.02%) 0.5MG/2.5ML NEB HHN STA (16:38)
[2019-04-29] MEDS ORDERED: ALBUTEROL (0.083%) 2.5MG/3ML NEB HHN STA (16:38)
[2019-04-29 16:54] VITALS: BP 118/80
== END 2019-04-29 18:16 | disposition left against medical advice (07) ==
LOC: ER 16:25
DX: J45.901 Unspecified asthma with (acute) exacerbation (principal); R03.0 Elevated blood-pressure reading, without diagnosis of hypertension
CPT/HCPCS: 71045; 99283; J7512; J7611

== ENCOUNTER 2019-05-05 21:19 | Inpatient (IN) | payer MEDICAID ==
[~2019-05-05] VITALS: Ht 182.9 cm; Wt 77.1 kg
[2019-05-05] MEDS ORDERED: ALBUTEROL (0.083%) 2.5MG/3ML NEB HHN STA (21:34)
[2019-05-05] MEDS ORDERED: IPRATROPIUM BROMIDE (0.02%) 0.5MG/2.5ML NEB HHN STA (21:34)
[2019-05-05] MEDS ORDERED: METHYLPREDNISOLONE SOD SUCC 125 MG/2 ML VIAL IV STA (21:34)
[2019-05-05 21:57] LABS: HEMATOCRIT. 45.3 % (42.0-52.0); HEMOGLOBIN. 14.9 g/dL (14.0-18.0); MEAN CORPUSCULAR HEMOGLOBIN 28.5 pg (28.0-32.0); MEAN CORPUSCULAR VOLUME 86.3 fL (80.0-94.0); MEAN PLATELET VOLUME 7.8 fl (7.4-10.4); PLATELET 194 x1000/uL (130-400); RED BLOOD CELL COUNT 5.25 mill/uL (4.7-6.1); RED CELL DISTRIBUTION WIDTH 13.3 % (11.6-14.6)
[2019-05-05 22:00] LABS: CHLORIDE 100 mEq/L (98-107)
[2019-05-05] MEDS ORDERED: SODIUM CHLORIDE 0.9% 500 ML IV ONE ×2 (22:36)
[2019-05-05 22:39] LABS: PLATELET ESTIMATE NORMAL
[2019-05-05] MEDS ORDERED: ALBUTEROL (0.5%) 2.5MG/0.5ML NEB HHN ONE (23:45)
[2019-05-06 01:00] VITALS: BP 125/71
[2019-05-06] MEDS ORDERED: HYDROCODONE/ACETAMINOPHEN 5/325MG TABLET PO PRN (01:30)
[2019-05-06 04:00] VITALS: BP 105/60
[2019-05-06] MEDS: IPRATROPIUM/ALBUTEROL 0.5-3(2.5)MG/3ML NEB HHN SCH ×4 (04:00→20:10)
[2019-05-06] MEDS: METHYLPREDNISOLONE SOD SUCC 40 MG/ML VIAL IV SCH ×3 (05:37→21:25)
[2019-05-06 08:00] VITALS: BP 109/65
[2019-05-06] MEDS: ENOXAPARIN 40MG/0.4ML SYR SUBCUT SCH (09:16)
[2019-05-06 12:00] VITALS: BP 111/69
[2019-05-06 16:15] VITALS: BP 118/70
[2019-05-06 20:00] VITALS: BP 123/77
[2019-05-07] VITALS: BP 122/80
[2019-05-07 04:00] VITALS: BP 116/68
[2019-05-07] MEDS: IPRATROPIUM/ALBUTEROL 0.5-3(2.5)MG/3ML NEB HHN SCH ×6 (04:00→21:24)
[2019-05-07] MEDS: METHYLPREDNISOLONE SOD SUCC 40 MG/ML VIAL IV SCH ×2 (06:22→13:56)
[2019-05-07 08:00] VITALS: BP 130/76
[2019-05-07] MEDS: ENOXAPARIN 40MG/0.4ML SYR SUBCUT SCH (08:11)
[2019-05-07 09:01] LABS: METHADONE URINE SCREEN NEGATIVE (NEGATIVE); OPIATES URINE SCREEN NEGATIVE (NEGATIVE)
[2019-05-07 09:02] LABS: *AMPHETAMINES SCREEN URINE NEGATIVE (NEGATIVE); *BARBITURATES SCREEN URINE NEGATIVE (NEGATIVE); *BENZODIAZEPINES SCREEN URINE NEGATIVE (NEGATIVE); *COCAINE SCREEN URINE PRESUMTIVE POSITIVE (NEGATIVE); CANNABINOID URINE SCREEN NEGATIVE (NEGATIVE); PHENCYCLIDINE URINE SCREEN NEGATIVE (NEGATIVE)
[2019-05-07 12:00] VITALS: BP 116/80
[2019-05-07 16:00] VITALS: BP 123/69
[2019-05-07] MEDS: PREDNISONE 20MG TABLET PO SCH (16:52)
[2019-05-07 20:00] VITALS: BP 122/80
[2019-05-07] MEDS: GUAIFENESIN 600MG ER TABLET PO SCH (20:59)
[2019-05-08] VITALS: BP 124/69
[2019-05-08] MEDS: IPRATROPIUM/ALBUTEROL 0.5-3(2.5)MG/3ML NEB HHN SCH ×4 (01:08→12:08)
[2019-05-08 04:00] VITALS: BP 107/64
[2019-05-08 08:00] VITALS: BP 112/64
[2019-05-08] MEDS: ENOXAPARIN 40MG/0.4ML SYR SUBCUT SCH (08:03)
[2019-05-08] MEDS: GUAIFENESIN 600MG ER TABLET PO SCH (08:03)
[2019-05-08] MEDS: PREDNISONE 20MG TABLET PO SCH (08:04)
[2019-05-08 12:00] VITALS: BP 128/65
[2019-05-08 14:41] VITALS: BP 128/65
== END 2019-05-08 16:06 | disposition home or self-care (01) | DRG 816 ==
LOC: ER 21:19 → 7WST 23:46 → EDBEDREQTM 23:50 → EDBEDREQ 23:50 → ENRESERV 23:54
PROVIDERS: ADMIT Internal Medicine; ATTEND Internal Medicine
DX: T40.5X1A Poisoning by cocaine, accidental (unintentional), initial encounter (principal); J96.00 Acute respiratory failure, unspecified whether with hypoxia or hypercapnia; J68.0 Bronchitis and pneumonitis due to chemicals, gases, fumes and vapors; E87.1 Hypo-osmolality and hyponatremia; G40.409 Other generalized epilepsy and epileptic syndromes, not intractable, without status epilepticus; F17.210 Nicotine dependence, cigarettes, uncomplicated; F29 Unspecified psychosis not due to a substance or known physiological condition; F14.90 Cocaine use, unspecified, uncomplicated; F19.10 Other psychoactive substance abuse, uncomplicated; Z71.51 Drug abuse counseling and surveillance of drug abuser; Y92.89 Other specified places as the place of occurrence of the external cause
CPT/HCPCS: 36415; 71045; 80305; 83880; 84484; 93005; 94640; 94644; 99285; J1650; J2920; J2930; J7512; J7611; J7620

== ENCOUNTER 2019-05-16 17:29 | Emergency (ER) | payer MEDICAID ==
[~2019-05-16] VITALS: Ht 180.3 cm; Wt 73.0 kg
[2019-05-16 17:32] VITALS: BP 135/89
[2019-05-16] MEDS ORDERED: ALBUTEROL (0.083%) 2.5MG/3ML NEB HHN ONE (18:45)
[2019-05-16] MEDS ORDERED: PREDNISONE 20MG TABLET PO ONE (18:45)
== END 2019-05-16 19:55 | disposition left against medical advice (07) ==
LOC: ER 17:29
DX: R05 Cough (principal); Z59.0 Homelessness
CPT/HCPCS: 71045; 94640; 99283; J7611; Z7610; J7512

== ENCOUNTER 2019-05-17 19:07 | Emergency (ER) | payer MEDICAID ==
[~2019-05-17] VITALS: Ht 177.8 cm; Wt 76.0 kg
[2019-05-17] MEDS ORDERED: IPRATROPIUM BROMIDE (0.02%) 0.5MG/2.5ML NEB HHN STA (19:40)
[2019-05-17] MEDS ORDERED: METHYLPREDNISOLONE SOD SUCC 125 MG/2 ML VIAL IV STA (19:40)
[2019-05-17] MEDS ORDERED: MAGNESIUM 2 G PREMIX 50 ML IV ONE (19:45)
[2019-05-17] MEDS: ALBUTEROL (0.083%) 2.5MG/3ML NEB HHN SCH ×3 (19:53→20:45)
[2019-05-17] MEDS ORDERED: ALBUTEROL (0.083%) 2.5MG/3ML NEB HHN STA (21:46)
[2019-05-18 00:27] VITALS: BP 124/82
== END 2019-05-18 00:29 | disposition home or self-care (01) ==
LOC: ER 19:07
DX: J45.901 Unspecified asthma with (acute) exacerbation (principal)
CPT/HCPCS: 71045; 93005; 94640; 96365; 96375; 99285; J2930; J3475; J7611; Z7610

== ENCOUNTER 2019-06-10 16:15 | Emergency (ER) | payer MEDICAID ==
[~2019-06-10] VITALS: Ht 185.4 cm; Wt 86.0 kg
[2019-06-10] MEDS ORDERED: IPRATROPIUM BROMIDE (0.02%) 0.5MG/2.5ML NEB HHN STA (18:02)
[2019-06-10] MEDS ORDERED: ALBUTEROL (0.083%) 2.5MG/3ML NEB HHN STA (18:02)
[2019-06-10 19:05] LABS: CHLORIDE 103 mEq/L (98-107)
[2019-06-10 19:14] LABS: HEMATOCRIT. 40.9 % (42.0-52.0); HEMOGLOBIN. 13.6 g/dL (14.0-18.0); MEAN CORPUSCULAR HEMOGLOBIN 28.3 pg (28.0-32.0); MEAN CORPUSCULAR VOLUME 85.2 fL (80.0-94.0); MEAN PLATELET VOLUME 7.5 fl (7.4-10.4); PLATELET 238 x1000/uL (130-400); RED BLOOD CELL COUNT 4.81 mill/uL (4.7-6.1); RED CELL DISTRIBUTION WIDTH 13.7 % (11.6-14.6)
[2019-06-10 19:34] LABS: PLATELET ESTIMATE NORMAL
[2019-06-10 23:16] VITALS: BP 122/87
== END 2019-06-10 23:35 | disposition home or self-care (01) ==
LOC: ER 16:15
DX: R06.02 Shortness of breath (principal); R03.0 Elevated blood-pressure reading, without diagnosis of hypertension
CPT/HCPCS: 36415; 71045; 80053; 83880; 84484; 85025; 93005; 94640; 99284; J7611

== ENCOUNTER 2019-06-17 21:30 | Emergency (ER) | payer MEDICAID ==
[~2019-06-17] VITALS: Ht 177.8 cm; Wt 73.0 kg
[2019-06-17] MEDS ORDERED: ALBUTEROL (0.083%) 2.5MG/3ML NEB HHN STA (23:07)
[2019-06-17] MEDS ORDERED: IPRATROPIUM BROMIDE (0.02%) 0.5MG/2.5ML NEB HHN STA (23:07)
[2019-06-17] MEDS ORDERED: PREDNISONE 20MG TABLET PO ONE (23:15)
[2019-06-17 23:38] LABS: CHLORIDE 104 mEq/L (98-107)
[2019-06-17 23:39] LABS: BASOPHILS % 0.8 % (0.0-2.0); EOSINOPHILS % 5.2 % (0.0-5.0); HEMATOCRIT. 42.1 % (42.0-52.0); HEMOGLOBIN. 14.2 g/dL (14.0-18.0); LYMPHOCYTES % 39.3 % (20.0-50.0); MEAN CORPUSCULAR HEMOGLOBIN 28.8 pg (28.0-32.0); MEAN CORPUSCULAR VOLUME 85.2 fL (80.0-94.0); MEAN PLATELET VOLUME 7.8 fl (7.4-10.4); MONOCYTES % 13.2 % (2.0-8.0); NEUTROPHILS % 41.5 % (40.0-76.0); PLATELET 208 x1000/uL (130-400); RED BLOOD CELL COUNT 4.93 mill/uL (4.7-6.1); RED CELL DISTRIBUTION WIDTH 13.7 % (11.6-14.6)
[2019-06-17 23:46] LABS: ETHANOL BLOOD < 10 mg/dL
[2019-06-20 14:06] VITALS: BP 111/71
== END 2019-06-20 14:08 | disposition home or self-care (01) ==
LOC: EDBD → ER 21:30
DX: R06.02 Shortness of breath (principal); Z59.0 Homelessness; L29.9 Pruritus, unspecified; Z75.1 Person awaiting admission to adequate facility elsewhere; G40.909 Epilepsy, unspecified, not intractable, without status epilepticus
CPT/HCPCS: 36415; 71045; 80053; 80320; 83880; 84484; 85025; 93005; 99284; J7512; J7611; Z7610; G0480

== ENCOUNTER 2019-07-04 00:59 | Emergency (ER) | payer MEDICAID ==
[~2019-07-04] VITALS: Ht 172.7 cm; Wt 70.0 kg
[2019-07-04 06:56] VITALS: BP 112/81
== END 2019-07-04 10:00 | disposition home or self-care (01) ==
LOC: EDBD → ER 00:59
DX: R06.02 Shortness of breath (principal); R03.0 Elevated blood-pressure reading, without diagnosis of hypertension; Z76.0 Encounter for issue of repeat prescription; Z72.0 Tobacco use; F14.10 Cocaine abuse, uncomplicated; J44.9 Chronic obstructive pulmonary disease, unspecified; Z59.0 Homelessness
CPT/HCPCS: 99283

== ENCOUNTER 2019-07-04 19:09 | Emergency (ER) | payer MEDICAID ==
[~2019-07-04] VITALS: Ht 180.3 cm; Wt 78.0 kg
[2019-07-04] MEDS ORDERED: PREDNISONE 20MG TABLET PO STA (20:08)
[2019-07-04] MEDS ORDERED: ALBUTEROL (0.083%) 2.5MG/3ML NEB HHN STA (20:08)
[2019-07-04] MEDS ORDERED: IPRATROPIUM BROMIDE (0.02%) 0.5MG/2.5ML NEB HHN STA (20:08)
[2019-07-05 16:33] VITALS: BP 110/79
== END 2019-07-05 16:34 | disposition home or self-care (01) ==
LOC: ER 19:16
DX: J44.1 Chronic obstructive pulmonary disease with (acute) exacerbation (principal); F17.200 Nicotine dependence, unspecified, uncomplicated
CPT/HCPCS: 93005; 94640; 99283; J7512; J7611; Z7610

== ENCOUNTER 2019-07-09 02:08 | Emergency (ER) | payer MEDICAID ==
[~2019-07-09] VITALS: Ht 188 cm; Wt 85.0 kg
[2019-07-09 04:58] VITALS: BP 128/80
== END 2019-07-09 05:03 | disposition home or self-care (01) ==
LOC: ER 02:08
DX: R06.02 Shortness of breath (principal); F14.10 Cocaine abuse, uncomplicated
CPT/HCPCS: 99283

== ENCOUNTER 2019-07-10 17:29 | Emergency (ER) | payer MEDICAID ==
[~2019-07-10] VITALS: Ht 172.7 cm; Wt 75.0 kg
[2019-07-10] MEDS ORDERED: PREDNISONE 20MG TABLET PO STA (18:23)
[2019-07-10] MEDS ORDERED: ALBUTEROL (0.083%) 2.5MG/3ML NEB HHN STA (18:23)
[2019-07-10] MEDS ORDERED: IPRATROPIUM BROMIDE (0.02%) 0.5MG/2.5ML NEB HHN STA (18:23)
[2019-07-10 22:53] VITALS: BP 125/78
== END 2019-07-10 23:00 | disposition home or self-care (01) ==
LOC: ER 17:35
DX: J44.1 Chronic obstructive pulmonary disease with (acute) exacerbation (principal); Z59.0 Homelessness; F17.290 Nicotine dependence, other tobacco product, uncomplicated; F14.10 Cocaine abuse, uncomplicated; J44.9 Chronic obstructive pulmonary disease, unspecified
CPT/HCPCS: 94640; 99283; J7512; J7611; Z7610

== ENCOUNTER 2019-07-13 08:56 | Inpatient (IN) | payer MEDICAID ==
[~2019-07-13] VITALS: Ht 182.9 cm; Wt 63.5 kg
[2019-07-13] MEDS ORDERED: IPRATROPIUM BROMIDE (0.02%) 0.5MG/2.5ML NEB HHN STA (09:22)
[2019-07-13] MEDS ORDERED: METHYLPREDNISOLONE SOD SUCC 125 MG/2 ML VIAL IV STA (09:22)
[2019-07-13] MEDS ORDERED: ALBUTEROL (0.083%) 2.5MG/3ML NEB HHN STA (09:22)
[2019-07-13 11:29] LABS: BASOPHILS % 0.5 % (0.0-2.0); EOSINOPHILS % 3.6 % (0.0-5.0); HEMATOCRIT. 41.7 % (42.0-52.0); HEMOGLOBIN. 13.8 g/dL (14.0-18.0); LYMPHOCYTES % 18.5 % (20.0-50.0); MEAN CORPUSCULAR HEMOGLOBIN 28.4 pg (28.0-32.0); MEAN CORPUSCULAR VOLUME 85.9 fL (80.0-94.0); MEAN PLATELET VOLUME 7.4 fl (7.4-10.4); MONOCYTES % 9.8 % (2.0-8.0); NEUTROPHILS % 67.6 % (40.0-76.0); PLATELET 248 x1000/uL (130-400); RED BLOOD CELL COUNT 4.86 mill/uL (4.7-6.1); RED CELL DISTRIBUTION WIDTH 13.5 % (11.6-14.6)
[2019-07-13 11:35] LABS: CHLORIDE 102 mEq/L (98-107)
[2019-07-13] MEDS ORDERED: IPRATROPIUM/ALBUTEROL 0.5-3(2.5)MG/3ML NEB HHN PRN (12:15)
[2019-07-13] MEDS ORDERED: ACETAMINOPHEN 325MG TABLET PO PRN (12:15)
[2019-07-13] MEDS ORDERED: ONDANSETRON HCL 4MG/2ML INJ IV PRN (12:15)
[2019-07-13] MEDS ORDERED: AMLODIPINE 5MG TABLET PO SCH (14:00)
[2019-07-13 14:23] VITALS: BP 99/63
[2019-07-13 14:30] VITALS: BP 99/63
[2019-07-13] MEDS: ENOXAPARIN 40MG/0.4ML SYR SUBCUT SCH (15:15)
[2019-07-13 15:44] LABS: CANNABINOID URINE SCREEN NEGATIVE (NEGATIVE)
[2019-07-13 15:45] LABS: *AMPHETAMINES SCREEN URINE NEGATIVE (NEGATIVE); *BARBITURATES SCREEN URINE NEGATIVE (NEGATIVE); *BENZODIAZEPINES SCREEN URINE NEGATIVE (NEGATIVE); *COCAINE SCREEN URINE PRESUMTIVE POSITIVE (NEGATIVE); METHADONE URINE SCREEN NEGATIVE (NEGATIVE); OPIATES URINE SCREEN NEGATIVE (NEGATIVE); PHENCYCLIDINE URINE SCREEN NEGATIVE (NEGATIVE)
[2019-07-13] MEDS ORDERED: INFLUENZA VIRUS VACCINE(AFLURIA) 0.5ML SYR IM ONE (16:15)
[2019-07-13] MEDS ORDERED: PNEUMOCOCCAL 23-VAL P-SAC VAC 0.5 ML IM ONE (16:15)
[2019-07-13 16:38] VITALS: BP 115/63
[2019-07-13] MEDS ORDERED: CLONIDINE 0.1MG TABLET PO PRN (17:00)
[2019-07-13 20:00] VITALS: BP 91/51
[2019-07-14] VITALS: BP 117/71
[2019-07-14] MEDS: IPRATROPIUM/ALBUTEROL 0.5-3(2.5)MG/3ML NEB HHN SCH ×3 (01:32→12:43)
[2019-07-14] MEDS: BUDESONIDE 0.5MG/2ML NEB HHN SCH ×2 (01:33→09:26)
[2019-07-14 08:00] VITALS: BP 125/82
[2019-07-14 12:00] VITALS: BP 119/70
[2019-07-14] MEDS: ENOXAPARIN 40MG/0.4ML SYR SUBCUT SCH (14:36)
[2019-07-14 15:37] VITALS: BP 121/73
[2019-07-14 15:40] VITALS: BP 121/73
== END 2019-07-14 16:30 | disposition home or self-care (01) | DRG 140 ==
LOC: ER 08:56 → 5WST 11:59 → EDBEDREQ 12:14 → ENRESERV 12:37
PROVIDERS: ADMIT Internal Medicine; ATTEND Internal Medicine
DX: J44.1 Chronic obstructive pulmonary disease with (acute) exacerbation (principal); J45.901 Unspecified asthma with (acute) exacerbation; F17.210 Nicotine dependence, cigarettes, uncomplicated; F14.90 Cocaine use, unspecified, uncomplicated; G40.909 Epilepsy, unspecified, not intractable, without status epilepticus; Z71.51 Drug abuse counseling and surveillance of drug abuser
CPT/HCPCS: 36415; 71045; 80053; 80305; 83880; 84484; 85025; 87804; 90686; 90732; 93005; 94640; 94644; 99285; J1650; J2930; J7626

== ENCOUNTER 2019-07-18 20:08 | Inpatient (IN) | payer MEDICAID ==
[~2019-07-18] VITALS: Ht 182.9 cm; Wt 68.0 kg
[2019-07-18] MEDS ORDERED: METHYLPREDNISOLONE SOD SUCC 125 MG/2 ML VIAL IV STA (21:50)
[2019-07-18] MEDS ORDERED: ALBUTEROL (0.083%) 2.5MG/3ML NEB HHN STA (21:50)
[2019-07-18] MEDS ORDERED: SODIUM CHLORIDE 0.9% 1,000 ML IV ONE (21:50)
[2019-07-18] MEDS ORDERED: IPRATROPIUM BROMIDE (0.02%) 0.5MG/2.5ML NEB HHN STA (21:50)
[2019-07-18 22:01] LABS: BASOPHILS % 0.9 % (0.0-2.0); EOSINOPHILS % 8.1 % (0.0-5.0); HEMATOCRIT. 40.3 % (42.0-52.0); HEMOGLOBIN. 13.5 g/dL (14.0-18.0); LYMPHOCYTES % 43.9 % (20.0-50.0); MEAN CORPUSCULAR HEMOGLOBIN 28.2 pg (28.0-32.0); MEAN CORPUSCULAR VOLUME 84.5 fL (80.0-94.0); MEAN PLATELET VOLUME 7.5 fl (7.4-10.4); MONOCYTES % 13.3 % (2.0-8.0); NEUTROPHILS % 33.8 % (40.0-76.0); PLATELET 229 x1000/uL (130-400); RED BLOOD CELL COUNT 4.77 mill/uL (4.7-6.1); RED CELL DISTRIBUTION WIDTH 13.3 % (11.6-14.6)
[2019-07-18 22:03] LABS: CHLORIDE 100 mEq/L (98-107)
[2019-07-18] MEDS ORDERED: ASPIRIN 81MG TABLET PO ONE (22:30)
[2019-07-18] MEDS ORDERED: SODIUM CHLORIDE 0.9% 1000ML BAG (SEPSIS BOLUS) IV ONE (22:30)
[2019-07-18] MEDS ORDERED: LEVOFLOXACIN 750MG PREMIX 150 ML IV ONE (22:30)
[2019-07-19 04:00] VITALS: BP 147/79
[2019-07-19 04:21] VITALS: BP 147/79
[2019-07-19] MEDS ORDERED: IPRATROPIUM/ALBUTEROL 0.5-3(2.5)MG/3ML NEB HHN PRN (05:45)
[2019-07-19] MEDS ORDERED: NON FORMULARY PATIENT HOME MED XX SCH (05:45)
[2019-07-19] MEDS ORDERED: ALBUTEROL (0.083%) 2.5MG/3ML NEB HHN SCH (06:00)
[2019-07-19] MEDS ORDERED: AZITHROMYCIN 500 MG in DEXT 5% WATER 250 ML IV SCH (08:00)
[2019-07-19] MEDS: METHYLPREDNISOLONE SOD SUCC 40 MG/ML VIAL IV SCH ×3 (09:01→22:07)
[2019-07-19] MEDS: ENOXAPARIN 40MG/0.4ML SYR SUBCUT SCH (09:02)
[2019-07-19 10:23] VITALS: BP 114/66
[2019-07-19 12:00] VITALS: BP 157/98
[2019-07-19] MEDS: CEFTRIAXONE 1 G PREMIX 50 ML IV SCH (14:03)
[2019-07-19 16:00] VITALS: BP 174/95
[2019-07-19 20:00] VITALS: BP_SYST 138; BP_SYST 153; BP_DIAS 89; BP_DIAS 90
[2019-07-20] VITALS: BP 138/84
[2019-07-20] MEDS: IPRATROPIUM/ALBUTEROL 0.5-3(2.5)MG/3ML NEB HHN SCH ×6 (00:58→20:20)
[2019-07-20] MEDS: BUDESONIDE 0.5MG/2ML NEB HHN SCH ×3 (00:58→08:31)
[2019-07-20] MEDS: METHYLPREDNISOLONE SOD SUCC 40 MG/ML VIAL IV SCH ×3 (06:00→21:32)
[2019-07-20] MEDS: CEFTRIAXONE 1 G PREMIX 50 ML IV SCH (07:00)
[2019-07-20 08:00] VITALS: BP 102/68
[2019-07-20 08:06] LABS: CHLORIDE 100 mEq/L (98-107)
[2019-07-20 08:36] LABS: BASOPHILS % 0.3 % (0.0-2.0); EOSINOPHILS % 0.1 % (0.0-5.0); HEMATOCRIT. 37.3 % (42.0-52.0); HEMOGLOBIN. 12.6 g/dL (14.0-18.0); LYMPHOCYTES % 15.5 % (20.0-50.0); MEAN CORPUSCULAR HEMOGLOBIN 28.5 pg (28.0-32.0); MEAN CORPUSCULAR VOLUME 84.6 fL (80.0-94.0); MEAN PLATELET VOLUME 8.2 fl (7.4-10.4); MONOCYTES % 10.8 % (2.0-8.0); NEUTROPHILS % 73.3 % (40.0-76.0); PLATELET 235 x1000/uL (130-400); RED BLOOD CELL COUNT 4.41 mill/uL (4.7-6.1); RED CELL DISTRIBUTION WIDTH 13.5 % (11.6-14.6)
[2019-07-20] MEDS: ENOXAPARIN 40MG/0.4ML SYR SUBCUT SCH (09:29)
[2019-07-20 12:00] VITALS: BP 123/76
[2019-07-20] MEDS ORDERED: GUAIFENESIN/DM 600MG/30MG ER TAB 12HR PO PRN (13:00)
[2019-07-20] MEDS: AZITHROMYCIN 500 MG in DEXT 5% WATER 250 ML IV SCH (14:30)
[2019-07-20 20:00] VITALS: BP 94/57
[2019-07-20 22:00] VITALS: BP 103/58
[2019-07-21] VITALS: BP 94/57
[2019-07-21 00:26] LABS: *AMPHETAMINES SCREEN URINE NEGATIVE (NEGATIVE); *BARBITURATES SCREEN URINE NEGATIVE (NEGATIVE); *BENZODIAZEPINES SCREEN URINE NEGATIVE (NEGATIVE); *COCAINE SCREEN URINE NEGATIVE (NEGATIVE)
[2019-07-21 00:27] LABS: CANNABINOID URINE SCREEN NEGATIVE (NEGATIVE); METHADONE URINE SCREEN NEGATIVE (NEGATIVE); OPIATES URINE SCREEN NEGATIVE (NEGATIVE); PHENCYCLIDINE URINE SCREEN NEGATIVE (NEGATIVE)
[2019-07-21 04:00] VITALS: BP 111/67
[2019-07-21] MEDS: METHYLPREDNISOLONE SOD SUCC 40 MG/ML VIAL IV SCH ×2 (05:43→13:13)
[2019-07-21] MEDS: CEFTRIAXONE 1 G PREMIX 50 ML IV SCH (06:24)
[2019-07-21] MEDS: IPRATROPIUM/ALBUTEROL 0.5-3(2.5)MG/3ML NEB HHN SCH ×3 (08:00→15:52)
[2019-07-21] MEDS: BUDESONIDE 0.5MG/2ML NEB HHN SCH ×2 (08:15→15:52)
[2019-07-21] MEDS: ENOXAPARIN 40MG/0.4ML SYR SUBCUT SCH (08:24)
[2019-07-21 12:00] VITALS: BP 116/68
[2019-07-21] MEDS: AZITHROMYCIN 500 MG in DEXT 5% WATER 250 ML IV SCH (13:13)
[2019-07-22] MEDS ORDERED: AZITHROMYCIN 500 MG TABLET PO SCH (09:00)
== END 2019-07-21 16:00 | disposition home or self-care (01) | DRG 720 ==
LOC: ER 20:08 → 5WST 07-19 00:34 → ENRESERV 07-19 02:35
PROVIDERS: ADMIT Internal Medicine; ATTEND Internal Medicine
DX: A41.9 Sepsis, unspecified organism (principal); J96.00 Acute respiratory failure, unspecified whether with hypoxia or hypercapnia; N17.0 Acute kidney failure with tubular necrosis; J18.9 Pneumonia, unspecified organism; D72.1 Eosinophilia; J44.0 Chronic obstructive pulmonary disease with (acute) lower respiratory infection; J45.901 Unspecified asthma with (acute) exacerbation; J44.1 Chronic obstructive pulmonary disease with (acute) exacerbation; D64.9 Anemia, unspecified; F17.210 Nicotine dependence, cigarettes, uncomplicated; F14.90 Cocaine use, unspecified, uncomplicated; Z71.6 Tobacco abuse counseling; Z71.51 Drug abuse counseling and surveillance of drug abuser
CPT/HCPCS: 36415; 71045; 73502; 80048; 80053; 80305; 83605; 83880; 84484; 85025; 93005; 94640; 96361; 96365; 96375; 99285; J0456; J0696; J1650; J1956; J2920; J2930; J7030; J7060; J7626

== ENCOUNTER 2019-08-20 16:20 | Emergency (ER) | payer MEDICAID ==
[~2019-08-20] VITALS: Ht 177.8 cm; Wt 82.0 kg
[2019-08-20] MEDS ORDERED: ACETAMINOPHEN 325MG TABLET PO ONE (22:00)
[2019-08-21 15:52] VITALS: BP 100/68
== END 2019-08-21 15:53 | disposition home or self-care (01) ==
LOC: ER 16:20
DX: Z59.0 Homelessness (principal); J45.909 Unspecified asthma, uncomplicated; I49.9 Cardiac arrhythmia, unspecified
CPT/HCPCS: 93005; 99283

== ENCOUNTER 2019-08-23 13:22 | Emergency (ER) | payer MEDICAID ==
[~2019-08-23] VITALS: Ht 172.7 cm; Wt 75.0 kg
[2019-08-23 18:59] VITALS: BP 97/57
== END 2019-08-23 17:18 | disposition left against medical advice (07) ==
LOC: ER 13:22
DX: R06.02 Shortness of breath (principal); Z53.21 Procedure and treatment not carried out due to patient leaving prior to being seen by health care provider

== ENCOUNTER 2019-08-24 11:48 | Emergency (ER) | payer MEDICAID ==
[~2019-08-24] VITALS: Ht 172.7 cm; Wt 67.0 kg
[2019-08-24] MEDS ORDERED: SODIUM CHLORIDE 0.9% 1,000 ML IV ONE (13:45)
[2019-08-24] MEDS ORDERED: ALBUTEROL (0.083%) 2.5MG/3ML NEB HHN STA (14:12)
[2019-08-24] MEDS ORDERED: IPRATROPIUM BROMIDE (0.02%) 0.5MG/2.5ML NEB HHN STA (14:12)
[2019-08-24] MEDS ORDERED: METHYLPREDNISOLONE SOD SUCC 125 MG/2 ML VIAL IV STA (14:12)
[2019-08-24 14:31] LABS: BASOPHILS % 1.2 % (0.0-2.0); EOSINOPHILS % 6.4 % (0.0-5.0); HEMATOCRIT. 42.6 % (42.0-52.0); HEMOGLOBIN. 13.9 g/dL (14.0-18.0); LYMPHOCYTES % 31.1 % (20.0-50.0); MEAN CORPUSCULAR HEMOGLOBIN 28.2 pg (28.0-32.0); MEAN CORPUSCULAR VOLUME 86.8 fL (80.0-94.0); MEAN PLATELET VOLUME 7.4 fl (7.4-10.4); MONOCYTES % 10.7 % (2.0-8.0); NEUTROPHILS % 50.6 % (40.0-76.0); PLATELET 202 x1000/uL (130-400); RED CELL DISTRIBUTION WIDTH 13.5 % (11.6-14.6)
[2019-08-24 14:43] LABS: CHLORIDE 107 mEq/L (98-107)
[2019-08-24] MEDS ORDERED: LEVETIRACETAM 500MG PREMIX 100 ML IV ONE (14:45)
[2019-08-24] MEDS ORDERED: KETOROLAC 15MG/ML VIAL IV ONE (14:45)
[2019-08-24 14:52] LABS: ETHANOL BLOOD < 10 mg/dL
[2019-08-24 15:02] LABS: CARBAMAZEPINE < 0.5 ug/mL (4-12); PHENOBARBITAL < 2.1 ug/mL (15.0-40.0); VALPROIC ACID < 3.0 ug/mL (50-100)
[2019-08-25 06:00] VITALS: BP 147/80
== END 2019-08-25 11:49 | disposition home or self-care (01) ==
LOC: ER 11:48
DX: G40.909 Epilepsy, unspecified, not intractable, without status epilepticus (principal); R06.02 Shortness of breath; F17.200 Nicotine dependence, unspecified, uncomplicated
CPT/HCPCS: 36415; 71045; 73521; 80053; 80156; 80165; 80184; 80185; 80320; 85025; 93005; 96365; 96375; 99284; J1885; J1953; J2930; J7030; J7611; G0480

== ENCOUNTER 2019-08-27 22:29 | Emergency (ER) | payer MEDICAID ==
[~2019-08-27] VITALS: Ht 182.9 cm; Wt 79.0 kg
[2019-08-28 09:54] VITALS: BP 128/86
== END 2019-08-28 09:54 | disposition home or self-care (01) ==
LOC: ER 22:29
DX: J44.1 Chronic obstructive pulmonary disease with (acute) exacerbation (principal); F17.200 Nicotine dependence, unspecified, uncomplicated
CPT/HCPCS: 99283

== ENCOUNTER 2019-08-29 21:46 | Emergency (ER) | payer MEDICAID ==
[~2019-08-29] VITALS: Ht 175.3 cm; Wt 70.0 kg
[2019-08-29] MEDS ORDERED: IPRATROPIUM BROMIDE (0.02%) 0.5MG/2.5ML NEB HHN STA (23:27)
[2019-08-29] MEDS ORDERED: ALBUTEROL (0.083%) 2.5MG/3ML NEB HHN STA (23:27)
[2019-08-30 12:00] VITALS: BP 125/91
== END 2019-08-30 16:23 | disposition home or self-care (01) ==
LOC: ER 21:46
DX: J44.1 Chronic obstructive pulmonary disease with (acute) exacerbation (principal); J45.901 Unspecified asthma with (acute) exacerbation; R07.2 Precordial pain; F17.210 Nicotine dependence, cigarettes, uncomplicated
CPT/HCPCS: 94640; 99283; 99406; J7611; Z7610

== ENCOUNTER 2019-09-01 05:27 | Emergency (ER) | payer MEDICAID ==
[~2019-09-01] VITALS: Ht 185.4 cm; Wt 91.0 kg
[2019-09-01 08:05] VITALS: BP 72/45
== END 2019-09-01 08:06 | disposition home or self-care (01) ==
LOC: ER 05:27
DX: J45.901 Unspecified asthma with (acute) exacerbation (principal); F17.200 Nicotine dependence, unspecified, uncomplicated; F15.10 Other stimulant abuse, uncomplicated
CPT/HCPCS: 93005; 99283

== ENCOUNTER 2019-09-02 11:45 | Emergency (ER) | payer MEDICAID ==
[~2019-09-02] VITALS: Ht 190.5 cm; Wt 110.0 kg
[2019-09-02 11:55] VITALS: BP 139/94
[2019-09-02] MEDS ORDERED: IPRATROPIUM BROMIDE (0.02%) 0.5MG/2.5ML NEB HHN STA (12:10)
[2019-09-02] MEDS ORDERED: PREDNISONE 20MG TABLET PO STA (12:10)
[2019-09-02] MEDS ORDERED: ALBUTEROL (0.083%) 2.5MG/3ML NEB HHN STA (12:10)
== END 2019-09-02 14:34 | disposition home or self-care (01) ==
LOC: ER 14:21
DX: J45.901 Unspecified asthma with (acute) exacerbation (principal); F14.10 Cocaine abuse, uncomplicated; R03.0 Elevated blood-pressure reading, without diagnosis of hypertension
CPT/HCPCS: 71045; 94644; 99283; J7512; J7611; Z7610

== ENCOUNTER 2019-09-04 20:53 | Inpatient (IN) | payer MEDICAID ==
[~2019-09-04] VITALS: Ht 190.5 cm; Wt 88.5 kg
[2019-09-04] MEDS ORDERED: SODIUM CHLORIDE 0.9% 1,000 ML IV ONE (23:37)
[2019-09-04] MEDS ORDERED: METHYLPREDNISOLONE SOD SUCC 125 MG/2 ML VIAL IV STA (23:37)
[2019-09-04] MEDS ORDERED: LEVOFLOXACIN 750MG PREMIX 150 ML IV ONE (23:45)
[2019-09-04] MEDS ORDERED: IPRATROPIUM/ALBUTEROL 0.5-3(2.5)MG/3ML NEB HHN ONE (23:45)
[2019-09-05 00:07] LABS: BASOPHILS % 1.1 % (0.0-2.0); EOSINOPHILS % 5.3 % (0.0-5.0); HEMATOCRIT. 40.7 % (42.0-52.0); HEMOGLOBIN. 13.5 g/dL (14.0-18.0); LYMPHOCYTES % 33.1 % (20.0-50.0); MEAN CORPUSCULAR HEMOGLOBIN 28.1 pg (28.0-32.0); MEAN CORPUSCULAR VOLUME 84.8 fL (80.0-94.0); MEAN PLATELET VOLUME 7.6 fl (7.4-10.4); MONOCYTES % 9.7 % (2.0-8.0); NEUTROPHILS % 50.8 % (40.0-76.0); PLATELET 216 x1000/uL (130-400); RED CELL DISTRIBUTION WIDTH 13.2 % (11.6-14.6)
[2019-09-05 00:16] LABS: PARTIAL THROMBOPLASTIN TIME 28.9 sec (23.4-31.0); PROTHROMBIN TIME 10.4 sec (9.6-11.0)
[2019-09-05 00:26] LABS: CHLORIDE 104 mEq/L (98-107)
[2019-09-05 00:31] LABS: ETHANOL BLOOD < 10 mg/dL
[2019-09-05] MEDS ORDERED: CLONIDINE 0.1MG TABLET PO PRN (07:45)
[2019-09-05] MEDS ORDERED: IPRATROPIUM/ALBUTEROL 0.5-3(2.5)MG/3ML NEB HHN PRN (07:45)
[2019-09-05] MEDS ORDERED: ACETAMINOPHEN 325MG TABLET PO PRN (07:45)
[2019-09-05] MEDS ORDERED: ONDANSETRON HCL 4MG/2ML INJ IV PRN (07:45)
[2019-09-05] MEDS ORDERED: DIPHENHYDRAMINE 50MG/ML VIAL IV PRN (07:45)
[2019-09-05 08:19] LABS: *AMPHETAMINES SCREEN URINE NEGATIVE (NEGATIVE); *BARBITURATES SCREEN URINE NEGATIVE (NEGATIVE); *BENZODIAZEPINES SCREEN URINE NEGATIVE (NEGATIVE); *COCAINE SCREEN URINE PRESUMTIVE POSITIVE (NEGATIVE); CLARITY URINE CLEAR (CLEAR); COLOR URINE YELLOW (YELLOW); KETONES URINE NEGATIVE (NEGATIVE); LEUKOCYTE ESTERASE URINE NEGATIVE (NEGATIVE); METHADONE URINE SCREEN NEGATIVE (NEGATIVE); NITRITE URINE NEGATIVE (NEGATIVE); OCCULT BLOOD URINE NEGATIVE (NEGATIVE); OPIATES URINE SCREEN PRESUMTIVE POSITIVE (NEGATIVE); PHENCYCLIDINE URINE SCREEN NEGATIVE (NEGATIVE); PROTEIN URINE NEGATIVE (NEGATIVE); SPECIFIC GRAVITY URINE 1.026 (1.005-1.030)
[2019-09-05 08:20] LABS: CANNABINOID URINE SCREEN NEGATIVE (NEGATIVE)
[2019-09-05] MEDS: METHYLPREDNISOLONE SOD SUCC 125 MG/2 ML VIAL IV SCH ×3 (08:38→18:42)
[2019-09-05] MEDS: ENOXAPARIN 40MG/0.4ML SYR SUBCUT SCH (11:09)
[2019-09-05 14:00] VITALS: BP 122/80
[2019-09-05 16:00] VITALS: BP 128/77
[2019-09-05] MEDS ORDERED: PNEUMOCOCCAL 23-VAL P-SAC VAC 0.5 ML IM ONE (16:30)
[2019-09-05] MEDS: LEVOFLOXACIN 500MG PREMIX 100 ML IV SCH (18:42)
[2019-09-05 20:00] VITALS: BP_SYST 103; BP_SYST 106; BP_DIAS 46; BP_DIAS 60
[2019-09-05] MEDS: IPRATROPIUM/ALBUTEROL 0.5-3(2.5)MG/3ML NEB HHN SCH (20:20)
[2019-09-05] MEDS ORDERED: LEVOFLOXACIN 500MG PREMIX 100 ML IV SCH (23:00)
[2019-09-06] VITALS: BP 110/62
[2019-09-06] MEDS: METHYLPREDNISOLONE SOD SUCC 40 MG/ML VIAL IV SCH ×3 (02:57→18:42)
[2019-09-06 04:00] VITALS: BP 112/56
[2019-09-06 06:10] LABS: HEMATOCRIT. 39.4 % (42.0-52.0); HEMOGLOBIN. 13.5 g/dL (14.0-18.0); MEAN CORPUSCULAR VOLUME 84.9 fL (80.0-94.0); MEAN PLATELET VOLUME 8.3 fl (7.4-10.4); PLATELET 203 x1000/uL (130-400); RED BLOOD CELL COUNT 4.64 mill/uL (4.7-6.1); RED CELL DISTRIBUTION WIDTH 13.2 % (11.6-14.6)
[2019-09-06 06:29] LABS: CHLORIDE 101 mEq/L (98-107)
[2019-09-06 06:41] LABS: LDL CHOLESTEROL 58 mg/dL (5-100)
[2019-09-06 06:42] LABS: HDL CHOLESTEROL 101 mg/dL (40-59)
[2019-09-06 08:09] VITALS: BP 134/68
[2019-09-06] MEDS: IPRATROPIUM/ALBUTEROL 0.5-3(2.5)MG/3ML NEB HHN SCH ×4 (09:08→21:00)
[2019-09-06] MEDS: ENOXAPARIN 40MG/0.4ML SYR SUBCUT SCH (11:23)
[2019-09-06 12:00] VITALS: BP 129/72
[2019-09-06 12:53] LABS: PLATELET ESTIMATE NORMAL
[2019-09-06 16:56] VITALS: BP 125/67
[2019-09-06] MEDS: LEVOFLOXACIN 500MG PREMIX 100 ML IV SCH (17:44)
[2019-09-06 20:00] VITALS: BP 114/68
[2019-09-07] VITALS: BP_SYST 109; BP_SYST 112; BP_DIAS 62
[2019-09-07] MEDS: METHYLPREDNISOLONE SOD SUCC 40 MG/ML VIAL IV SCH (03:13)
[2019-09-07] MEDS: GUAIFENESIN 200MG/10ML SUGAR FREE UDC PO PRN ×2 (03:17→10:03)
[2019-09-07 04:00] VITALS: BP 112/62
[2019-09-07 08:00] VITALS: BP 141/95
[2019-09-07] MEDS: IPRATROPIUM/ALBUTEROL 0.5-3(2.5)MG/3ML NEB HHN SCH ×3 (08:13→20:39)
[2019-09-07] MEDS: ENOXAPARIN 40MG/0.4ML SYR SUBCUT SCH (10:03)
[2019-09-07] MEDS ORDERED: LEVOFLOXACIN 500MG TABLET PO SCH (11:00)
[2019-09-07 12:00] VITALS: BP 122/76
[2019-09-07] MEDS: BUDESONIDE 0.5MG/2ML NEB HHN SCH ×2 (13:26→20:40)
[2019-09-07 16:00] VITALS: BP 112/65
[2019-09-07] MEDS: PREDNISONE 20MG TABLET PO SCH (18:30)
[2019-09-08 00:13] VITALS: BP 102/56
[2019-09-08 04:00] VITALS: BP 120/73
[2019-09-08 08:00] VITALS: BP 136/78
[2019-09-08] MEDS: PREDNISONE 20MG TABLET PO SCH (08:22)
[2019-09-08] MEDS: ENOXAPARIN 40MG/0.4ML SYR SUBCUT SCH (08:23)
[2019-09-08] MEDS: IPRATROPIUM/ALBUTEROL 0.5-3(2.5)MG/3ML NEB HHN SCH (09:55)
[2019-09-08] MEDS: BUDESONIDE 0.5MG/2ML NEB HHN SCH (09:55)
[2019-09-08 12:00] VITALS: BP 126/76
[2019-09-08 13:37] VITALS: BP 126/76
== END 2019-09-08 14:30 | disposition home or self-care (01) | DRG 140 ==
LOC: ER 20:53 → EDBEDREQ 09-05 01:19 → 7WST 09-05 01:46 → EDBEDREQTM 09-05 01:48 → EDBEDREQDT 09-05 01:48 → EDBEDREQ 09-05 01:48 → ENRESERV 09-05 12:49
PROVIDERS: ADMIT Internal Medicine; ATTEND Internal Medicine
DX: J44.1 Chronic obstructive pulmonary disease with (acute) exacerbation (principal); J96.00 Acute respiratory failure, unspecified whether with hypoxia or hypercapnia; J06.9 Acute upper respiratory infection, unspecified; F14.90 Cocaine use, unspecified, uncomplicated; F19.90 Other psychoactive substance use, unspecified, uncomplicated; Z87.891 Personal history of nicotine dependence; Z79.899 Other long term (current) drug therapy
CPT/HCPCS: 36415; 71045; 80053; 80061; 80305; 80320; 81003; 83605; 83735; 83880; 84100; 84484; 85025; 87070; 87804; 93005; 93970; 94640; 96365; 99285; J1650; J1956; J2920; J2930; J7030; J7040; J7512; J7626; G0480

== ENCOUNTER 2019-09-22 00:36 | Emergency (ER) | payer MEDICAID ==
[~2019-09-22] VITALS: Ht 177.8 cm; Wt 81.0 kg
[2019-09-22] MEDS ORDERED: IPRATROPIUM/ALBUTEROL 0.5-3(2.5)MG/3ML NEB HHN ONE (02:45)
[2019-09-22] MEDS ORDERED: DEXAMETHASONE 4MG TABLET PO ONE (02:45)
[2019-09-22] MEDS ORDERED: ALBUTEROL 6.7GM HFA INHALER ORI ONE (03:30)
[2019-09-22 09:30] VITALS: BP 124/78
== END 2019-09-22 10:00 | disposition home or self-care (01) ==
LOC: ER 00:36
DX: J44.1 Chronic obstructive pulmonary disease with (acute) exacerbation (principal); J45.901 Unspecified asthma with (acute) exacerbation; I10 Essential (primary) hypertension; F17.200 Nicotine dependence, unspecified, uncomplicated; Z59.0 Homelessness
CPT/HCPCS: 94640; 99285; J7610; J8540; Z7610

== ENCOUNTER 2019-10-04 09:25 | Emergency (ER) | payer MEDICAID ==
[~2019-10-04] VITALS: Ht 175.3 cm; Wt 68.0 kg
[2019-10-04] MEDS ORDERED: IPRATROPIUM/ALBUTEROL 0.5-3(2.5)MG/3ML NEB HHN ONE (10:00)
[2019-10-04 12:22] LABS: CLARITY URINE CLEAR (CLEAR); COLOR URINE YELLOW (YELLOW); KETONES URINE NEGATIVE (NEGATIVE); LEUKOCYTE ESTERASE URINE NEGATIVE (NEGATIVE); NITRITE URINE NEGATIVE (NEGATIVE); OCCULT BLOOD URINE TRACE (NEGATIVE); PH URINE 6.5 (4.5-8.0); PROTEIN URINE NEGATIVE (NEGATIVE); SPECIFIC GRAVITY URINE 1.021 (1.005-1.030); UROBILINOGEN URINE 0.2 E.U./dL (0.2-1.0)
[2019-10-04 12:36] LABS: *AMPHETAMINES SCREEN URINE NEGATIVE (NEGATIVE); *BARBITURATES SCREEN URINE NEGATIVE (NEGATIVE); *BENZODIAZEPINES SCREEN URINE NEGATIVE (NEGATIVE); *COCAINE SCREEN URINE PRESUMTIVE POSITIVE (NEGATIVE); METHADONE URINE SCREEN NEGATIVE (NEGATIVE); PHENCYCLIDINE URINE SCREEN NEGATIVE (NEGATIVE)
[2019-10-04 12:37] LABS: CANNABINOID URINE SCREEN NEGATIVE (NEGATIVE)
[2019-10-04 14:46] VITALS: BP 119/81
[2019-10-05 20:18] LABS: OPIATES URINE SCREEN NEGATIVE (NEGATIVE)
== END 2019-10-04 14:51 | disposition home or self-care (01) ==
LOC: ER 09:25
DX: J45.901 Unspecified asthma with (acute) exacerbation (principal); I10 Essential (primary) hypertension
CPT/HCPCS: 71045; 80305; 81003; 94640; 99285; J7610; Z7610

== ENCOUNTER 2019-11-11 09:36 | Emergency (ER) | payer MEDICAID ==
[~2019-11-11] VITALS: Ht 185.4 cm; Wt 81.0 kg
[2019-11-11] MEDS ORDERED: METHYLPREDNISOLONE SOD SUCC 125 MG/2 ML VIAL IV STA (10:12)
[2019-11-11] MEDS ORDERED: ALBUTEROL (0.083%) 2.5MG/3ML NEB HHN STA (10:12)
[2019-11-11] MEDS ORDERED: IPRATROPIUM BROMIDE (0.02%) 0.5MG/2.5ML NEB HHN STA (10:12)
[2019-11-11 10:41] LABS: BASOPHILS % 0.6 % (0.0-2.0); EOSINOPHILS % 3.1 % (0.0-5.0); HEMATOCRIT. 39.7 % (42.0-52.0); HEMOGLOBIN. 13.3 g/dL (14.0-18.0); LYMPHOCYTES % 38.2 % (20.0-50.0); MEAN CORPUSCULAR HEMOGLOBIN 28.8 pg (28.0-32.0); MEAN CORPUSCULAR VOLUME 85.6 fL (80.0-94.0); MEAN PLATELET VOLUME 7.8 fl (7.4-10.4); MONOCYTES % 14.5 % (2.0-8.0); NEUTROPHILS % 43.6 % (40.0-76.0); PLATELET 228 x1000/uL (130-400); RED BLOOD CELL COUNT 4.64 mill/uL (4.7-6.1); RED CELL DISTRIBUTION WIDTH 13.3 % (11.6-14.6)
[2019-11-11 10:48] LABS: CHLORIDE 106 mEq/L (98-107)
[2019-11-11] MEDS ORDERED: DIPHENHYDRAMINE 50MG/ML VIAL IV ONE (12:00)
[2019-11-11 13:08] VITALS: BP 90/50
== END 2019-11-11 13:22 | disposition home or self-care (01) ==
LOC: ER 09:36
DX: R06.02 Shortness of breath (principal)
CPT/HCPCS: 36415; 71045; 80053; 85025; 93005; 94644; 96374; 96375; 99285; J1200; J2930; Z7610

== ENCOUNTER 2019-11-27 19:30 | Emergency (ER) | payer MEDICAID ==
[~2019-11-27] VITALS: Ht 175.3 cm; Wt 76.0 kg
[2019-11-27] MEDS ORDERED: METHYLPREDNISOLONE SOD SUCC 125 MG/2 ML VIAL IV STA (19:52)
[2019-11-27] MEDS ORDERED: MAGNESIUM 2 G PREMIX 50 ML IV ONE (20:00)
[2019-11-27] MEDS ORDERED: ALBUTEROL 6.7GM HFA INHALER ORI PRN (20:00)
[2019-11-27 20:29] LABS: BASOPHILS % 0.7 % (0.0-2.0); EOSINOPHILS % 4.3 % (0.0-5.0); HEMATOCRIT. 40.5 % (42.0-52.0); HEMOGLOBIN. 13.5 g/dL (14.0-18.0); LYMPHOCYTES % 29.9 % (20.0-50.0); MEAN CORPUSCULAR HEMOGLOBIN 28.6 pg (28.0-32.0); MEAN CORPUSCULAR VOLUME 85.6 fL (80.0-94.0); MEAN PLATELET VOLUME 8.6 fl (7.4-10.4); MONOCYTES % 9.1 % (2.0-8.0); PLATELET 188 x1000/uL (130-400); RED BLOOD CELL COUNT 4.73 mill/uL (4.7-6.1)
[2019-11-27 20:35] LABS: INR 0.9; PARTIAL THROMBOPLASTIN TIME 28.4 sec (23.4-31.0); PROTHROMBIN TIME 10.1 sec (9.6-11.0)
[2019-11-27 22:05] LABS: *AMPHETAMINES SCREEN URINE NEGATIVE (NEGATIVE); *BARBITURATES SCREEN URINE NEGATIVE (NEGATIVE); *BENZODIAZEPINES SCREEN URINE NEGATIVE (NEGATIVE); *COCAINE SCREEN URINE PRESUMTIVE POSITIVE (NEGATIVE)
[2019-11-27 22:06] LABS: CANNABINOID URINE SCREEN NEGATIVE (NEGATIVE); METHADONE URINE SCREEN NEGATIVE (NEGATIVE); OPIATES URINE SCREEN NEGATIVE (NEGATIVE); PHENCYCLIDINE URINE SCREEN NEGATIVE (NEGATIVE)
[2019-11-27 22:52] LABS: CHLORIDE 102 mEq/L (98-107)
[2019-11-27 22:56] LABS: ETHANOL BLOOD < 10 mg/dL
[2019-11-28 00:30] VITALS: BP 112/54
== END 2019-11-28 00:41 | disposition short-term general hospital (02) ==
LOC: ER 19:30 → CANBEDREQ 11-28 01:02
DX: J44.1 Chronic obstructive pulmonary disease with (acute) exacerbation (principal); Z03.818 Encounter for observation for suspected exposure to other biological agents ruled out; Z59.0 Homelessness; Z20.828 Contact with and (suspected) exposure to other viral communicable diseases
CPT/HCPCS: 36415; 71045; 80053; 80305; 80320; 83605; 83880; 84145; 84484; 85025; 85610; 85730; 87040; 87086; 87635; 93005; 96365; 96375; 99285; J2930; J3475; Z7610; G0480

== ENCOUNTER 2019-12-12 22:56 | Emergency (ER) | payer MEDICAID ==
[~2019-12-12] VITALS: Ht 180.3 cm; Wt 73.0 kg
[2019-12-12] MEDS ORDERED: PREDNISONE 20MG TABLET PO STA (23:02)
[2019-12-12] MEDS ORDERED: ALBUTEROL (0.083%) 2.5MG/3ML NEB HHN STA (23:02)
[2019-12-12] MEDS ORDERED: IPRATROPIUM BROMIDE (0.02%) 0.5MG/2.5ML NEB HHN STA (23:02)
[2019-12-13 08:00] VITALS: BP 122/74
== END 2019-12-13 10:00 | disposition home or self-care (01) ==
LOC: ER 22:56
DX: J45.901 Unspecified asthma with (acute) exacerbation (principal); Z98.890 Other specified postprocedural states
CPT/HCPCS: 71045; 94644; 99285; J7512; Z7610

== ENCOUNTER 2019-12-25 20:10 | Emergency (ER) | payer MEDICAID ==
[~2019-12-25] VITALS: Ht 182.9 cm; Wt 77.0 kg
[2019-12-25] MEDS ORDERED: METHYLPREDNISOLONE SOD SUCC 125 MG/2 ML VIAL IV STA (22:01)
[2019-12-25] MEDS ORDERED: ALBUTEROL (0.083%) 2.5MG/3ML NEB HHN STA (22:01)
[2019-12-25 23:14] LABS: EOSINOPHILS % 3.7 % (0.0-5.0); LYMPHOCYTES % 31.1 % (20.0-50.0); MEAN CORPUSCULAR HEMOGLOBIN 28.9 pg (28.0-32.0); MEAN CORPUSCULAR VOLUME 86.4 fL (80.0-94.0); MEAN PLATELET VOLUME 7.6 fl (7.4-10.4); MONOCYTES % 12.3 % (2.0-8.0); NEUTROPHILS % 51.9 % (40.0-76.0); PLATELET 219 x1000/uL (130-400); RED BLOOD CELL COUNT 4.86 mill/uL (4.7-6.1); RED CELL DISTRIBUTION WIDTH 13.6 % (11.6-14.6)
[2019-12-25 23:20] LABS: CHLORIDE 103 mEq/L (98-107)
[2019-12-26 02:27] VITALS: BP 104/68
== END 2019-12-26 02:27 | disposition short-term general hospital (02) ==
LOC: ER 20:10
DX: J44.1 Chronic obstructive pulmonary disease with (acute) exacerbation (principal); R06.03 Acute respiratory distress
CPT/HCPCS: 36415; 71045; 80053; 85025; 93005; 94640; 96374; 99285; J2930; Z7610

== ENCOUNTER 2020-01-15 16:41 | Emergency (ER) | payer MEDICAID ==
[~2020-01-15] VITALS: Ht 170.2 cm; Wt 77.0 kg
[2020-01-15 17:41] LABS: BASOPHILS % 0.8 % (0.0-2.0); EOSINOPHILS % 5.5 % (0.0-5.0); HEMATOCRIT. 42.2 % (42.0-52.0); HEMOGLOBIN. 14.1 g/dL (14.0-18.0); MEAN CORPUSCULAR HEMOGLOBIN 29.2 pg (28.0-32.0); MEAN CORPUSCULAR VOLUME 87.3 fL (80.0-94.0); MEAN PLATELET VOLUME 7.6 fl (7.4-10.4); MONOCYTES % 12.3 % (2.0-8.0); NEUTROPHILS % 46.4 % (40.0-76.0); PLATELET 222 x1000/uL (130-400); RED BLOOD CELL COUNT 4.83 mill/uL (4.7-6.1)
[2020-01-15 17:44] LABS: CHLORIDE 101 mEq/L (98-107)
[2020-01-15] MEDS ORDERED: ALBUTEROL (0.083%) 2.5MG/3ML NEB HHN STA (17:46)
[2020-01-15] MEDS ORDERED: METHYLPREDNISOLONE SOD SUCC 125 MG/2 ML VIAL IV STA (17:46)
[2020-01-15 19:45] VITALS: BP 125/62
== END 2020-01-15 21:03 | disposition home or self-care (01) ==
LOC: ER 16:41
DX: J44.1 Chronic obstructive pulmonary disease with (acute) exacerbation (principal)
CPT/HCPCS: 36415; 71045; 80053; 85025; 93005; 94640; 96374; 99285; J2930; Z7610

== ENCOUNTER 2020-01-21 17:00 | Emergency (ER) | payer MEDICAID ==
[~2020-01-21] VITALS: Ht 180.3 cm; Wt 68.0 kg
[2020-01-21 17:13] VITALS: BP 129/70
[2020-01-21] MEDS ORDERED: PREDNISONE 20MG TABLET PO STA (19:52)
[2020-01-21] MEDS ORDERED: IPRATROPIUM BROMIDE (0.02%) 0.5MG/2.5ML NEB HHN STA (19:52)
[2020-01-21] MEDS ORDERED: ALBUTEROL (0.083%) 2.5MG/3ML NEB HHN STA (19:52)
== END 2020-01-21 19:56 | disposition left against medical advice (07) ==
LOC: ER 17:00
DX: Z53.21 Procedure and treatment not carried out due to patient leaving prior to being seen by health care provider (principal)

== ENCOUNTER 2020-01-26 09:38 | Emergency (ER) | payer MEDICAID ==
[~2020-01-26] VITALS: Ht 188 cm; Wt 70.0 kg
[2020-01-26] MEDS ORDERED: PREDNISONE 20MG TABLET PO ONE (10:15)
[2020-01-26] MEDS ORDERED: ALBUTEROL (0.083%) 2.5MG/3ML NEB HHN ONE (10:15)
[2020-01-26 10:44] LABS: BASOPHILS % 1.1 % (0.0-2.0); EOSINOPHILS % 6.3 % (0.0-5.0); HEMATOCRIT. 43.3 % (42.0-52.0); HEMOGLOBIN. 14.8 g/dL (14.0-18.0); LYMPHOCYTES % 30.3 % (20.0-50.0); MEAN CORPUSCULAR HEMOGLOBIN 29.6 pg (28.0-32.0); MEAN CORPUSCULAR VOLUME 86.4 fL (80.0-94.0); MEAN PLATELET VOLUME 7.2 fl (7.4-10.4); MONOCYTES % 11.4 % (2.0-8.0); NEUTROPHILS % 50.9 % (40.0-76.0); PLATELET 212 x1000/uL (130-400); RED BLOOD CELL COUNT 5.01 mill/uL (4.7-6.1); RED CELL DISTRIBUTION WIDTH 13.7 % (11.6-14.6)
[2020-01-26 10:50] LABS: CHLORIDE 100 mEq/L (98-107)
[2020-01-26 11:47] VITALS: BP 120/89
== END 2020-01-26 13:02 | disposition home or self-care (01) ==
LOC: ER 09:38
DX: J45.909 Unspecified asthma, uncomplicated (principal)
CPT/HCPCS: 36415; 71045; 80053; 83880; 84484; 85025; 93005; 94640; 99285; J7512; Z7610

== ENCOUNTER 2020-01-31 21:19 | Emergency (ER) | payer MEDICAID ==
[~2020-01-31] VITALS: Ht 182.9 cm; Wt 82.0 kg
[2020-01-31 21:39] VITALS: BP 144/96
[2020-01-31] MEDS ORDERED: ALBUTEROL (0.5%) 2.5MG/0.5ML NEB HHN ONE (22:30)
== END 2020-02-01 01:12 | disposition home or self-care (01) ==
LOC: ER 21:19
DX: J45.909 Unspecified asthma, uncomplicated (principal); R03.0 Elevated blood-pressure reading, without diagnosis of hypertension; J44.9 Chronic obstructive pulmonary disease, unspecified
CPT/HCPCS: 94640; 99283; Z7610

== ENCOUNTER 2020-02-01 07:54 | Emergency (ER) | payer MEDICAID ==
[~2020-02-01] VITALS: Ht 182.9 cm; Wt 82.0 kg
[2020-02-01 10:55] VITALS: BP 137/89
== END 2020-02-01 10:55 | disposition home or self-care (01) ==
LOC: ER 07:54
DX: Z00.00 Encounter for general adult medical examination without abnormal findings (principal); R03.0 Elevated blood-pressure reading, without diagnosis of hypertension; G40.909 Epilepsy, unspecified, not intractable, without status epilepticus
CPT/HCPCS: 99283

== ENCOUNTER 2020-02-07 13:12 | Emergency (ER) | payer MEDICAID ==
[~2020-02-07] VITALS: Ht 182.9 cm; Wt 78.0 kg
[2020-02-07] MEDS ORDERED: METHYLPREDNISOLONE SOD SUCC 125 MG/2 ML VIAL IV STA (13:27)
[2020-02-07] MEDS ORDERED: ALBUTEROL (0.083%) 2.5MG/3ML NEB HHN STA (13:27)
[2020-02-07] MEDS ORDERED: PREDNISONE 20MG TABLET PO ONE (14:30)
[2020-02-08 07:49] LABS: BASOPHILS % 0.4 % (0.0-2.0); EOSINOPHILS % 0.3 % (0.0-5.0); HEMATOCRIT. 42.9 % (42.0-52.0); HEMOGLOBIN. 14.4 g/dL (14.0-18.0); LYMPHOCYTES % 21.8 % (20.0-50.0); MEAN CORPUSCULAR HEMOGLOBIN 29.5 pg (28.0-32.0); MEAN CORPUSCULAR VOLUME 87.7 fL (80.0-94.0); MEAN PLATELET VOLUME 7.6 fl (7.4-10.4); MONOCYTES % 13.8 % (2.0-8.0); NEUTROPHILS % 63.7 % (40.0-76.0); PLATELET 190 x1000/uL (130-400); RED BLOOD CELL COUNT 4.89 mill/uL (4.7-6.1); RED CELL DISTRIBUTION WIDTH 14.3 % (11.6-14.6)
[2020-02-08 07:53] LABS: CHLORIDE 105 mEq/L (98-107)
[2020-02-08 09:00] VITALS: BP 110/88
== END 2020-02-08 09:00 | disposition home or self-care (01) ==
LOC: ER 13:27
DX: J44.1 Chronic obstructive pulmonary disease with (acute) exacerbation (principal); F17.290 Nicotine dependence, other tobacco product, uncomplicated; R06.2 Wheezing
CPT/HCPCS: 36415; 71045; 80053; 85025; 93005; 94640; 99285; 99406; J7512; Z7610

== ENCOUNTER 2020-02-09 11:03 | Emergency (ER) | payer MEDICAID ==
[~2020-02-09] VITALS: Ht 172.7 cm; Wt 68.0 kg
[2020-02-09] MEDS ORDERED: ALBUTEROL (0.083%) 2.5MG/3ML NEB HHN STA (11:39)
[2020-02-09] MEDS ORDERED: PREDNISONE 20MG TABLET PO STA (11:39)
[2020-02-09] MEDS ORDERED: IPRATROPIUM BROMIDE (0.02%) 0.5MG/2.5ML NEB HHN STA (11:39)
[2020-02-09 16:36] VITALS: BP 108/78
== END 2020-02-09 16:36 | disposition home or self-care (01) ==
LOC: ER 11:03
DX: J44.1 Chronic obstructive pulmonary disease with (acute) exacerbation (principal); J45.901 Unspecified asthma with (acute) exacerbation
CPT/HCPCS: 71045; 94644; 99285; J7512; Z7610

== ENCOUNTER 2020-02-24 16:33 | Emergency (ER) | payer MEDICAID ==
[~2020-02-24] VITALS: Ht 182.9 cm; Wt 90.0 kg
[2020-02-24 16:36] VITALS: BP 152/99
== END 2020-02-24 19:25 | disposition left against medical advice (07) ==
LOC: ER 16:37
DX: Z53.21 Procedure and treatment not carried out due to patient leaving prior to being seen by health care provider (principal); J45.901 Unspecified asthma with (acute) exacerbation; S30.865A Insect bite (nonvenomous) of unspecified external genital organs, male, initial encounter

== ENCOUNTER 2020-02-27 21:35 | Emergency (ER) | payer MEDICAID, OTHER ==
[~2020-02-27] VITALS: Ht 182.9 cm; Wt 75.0 kg
[2020-02-27] MEDS ORDERED: IPRATROPIUM BROMIDE (0.02%) 0.5MG/2.5ML NEB HHN STA (21:46)
[2020-02-27] MEDS ORDERED: ALBUTEROL (0.083%) 2.5MG/3ML NEB HHN STA (21:46)
[2020-02-27 22:15] LABS: BASOPHILS % 0.6 % (0.0-2.0); EOSINOPHILS % 2.9 % (0.0-5.0); HEMATOCRIT. 42.5 % (42.0-52.0); HEMOGLOBIN. 14.3 g/dL (14.0-18.0); LYMPHOCYTES % 31.9 % (20.0-50.0); MEAN CORPUSCULAR HEMOGLOBIN 29.2 pg (28.0-32.0); MEAN CORPUSCULAR VOLUME 86.9 fL (80.0-94.0); MEAN PLATELET VOLUME 7.3 fl (7.4-10.4); MONOCYTES % 11.7 % (2.0-8.0); NEUTROPHILS % 52.9 % (40.0-76.0); PLATELET 248 x1000/uL (130-400); RED BLOOD CELL COUNT 4.89 mill/uL (4.7-6.1)
[2020-02-27 22:21] LABS: CHLORIDE 100 mEq/L (98-107)
[2020-02-27] MEDS ORDERED: SODIUM CHLORIDE 0.9% 1,000 ML IV ONE (22:45)
[2020-02-28] MEDS ORDERED: PREDNISONE 20MG TABLET PO ONE
[2020-02-28 00:05] VITALS: BP 104/68
== END 2020-02-28 00:19 | disposition home or self-care (01) ==
LOC: ER 21:35
DX: J44.1 Chronic obstructive pulmonary disease with (acute) exacerbation (principal); Z91.14 Patient's other noncompliance with medication regimen
CPT/HCPCS: 36415; 71045; 80053; 83880; 84484; 85025; 93005; 94640; 99285; J7030; J7512; Z7610

== ENCOUNTER 2020-03-03 00:38 | Emergency (ER) | payer MEDICAID ==
[~2020-03-03] VITALS: Ht 182.9 cm; Wt 73.0 kg
[2020-03-03 02:18] LABS: BASOPHILS % 0.4 % (0.0-2.0); EOSINOPHILS % 1.8 % (0.0-5.0); HEMATOCRIT. 41.2 % (42.0-52.0); HEMOGLOBIN. 13.6 g/dL (14.0-18.0); LYMPHOCYTES % 13.9 % (20.0-50.0); MEAN CORPUSCULAR HEMOGLOBIN 28.8 pg (28.0-32.0); MEAN CORPUSCULAR VOLUME 87.2 fL (80.0-94.0); MEAN PLATELET VOLUME 7.3 fl (7.4-10.4); MONOCYTES % 10.1 % (2.0-8.0); NEUTROPHILS % 73.8 % (40.0-76.0); PLATELET 226 x1000/uL (130-400); RED BLOOD CELL COUNT 4.72 mill/uL (4.7-6.1); RED CELL DISTRIBUTION WIDTH 13.9 % (11.6-14.6)
[2020-03-03 02:25] LABS: CHLORIDE 100 mEq/L (98-107)
[2020-03-03 03:02] VITALS: BP 137/67
== END 2020-03-03 03:03 | disposition home or self-care (01) ==
LOC: ER 00:52
DX: J45.901 Unspecified asthma with (acute) exacerbation (principal); R03.0 Elevated blood-pressure reading, without diagnosis of hypertension; Z91.14 Patient's other noncompliance with medication regimen
CPT/HCPCS: 36415; 71045; 80053; 84484; 85025; 93005; 99285

== ENCOUNTER 2020-03-21 01:50 | Emergency (ER) | payer MEDICAID ==
[~2020-03-21] VITALS: Ht 175.3 cm; Wt 73.0 kg
[2020-03-21 01:56] VITALS: BP 139/90
== END 2020-03-21 02:20 | disposition left against medical advice (07) ==
LOC: ER 01:50
DX: Z53.21 Procedure and treatment not carried out due to patient leaving prior to being seen by health care provider (principal)
CPT/HCPCS: 93005

== ENCOUNTER 2020-03-23 23:15 | Emergency (ER) | payer MEDICAID ==
[~2020-03-23] VITALS: Ht 182.9 cm; Wt 79.0 kg
[2020-03-23] MEDS ORDERED: METHYLPREDNISOLONE SOD SUCC 125 MG/2 ML VIAL IV STA (23:50)
[2020-03-23] MEDS ORDERED: IPRATROPIUM BROMIDE (0.02%) 0.5MG/2.5ML NEB HHN STA (23:50)
[2020-03-23] MEDS ORDERED: ALBUTEROL (0.083%) 2.5MG/3ML NEB HHN STA (23:50)
[2020-03-24 00:37] LABS: CHLORIDE 102 mEq/L (98-107)
[2020-03-24 00:47] LABS: EOSINOPHILS % 5.2 % (0.0-5.0); HEMOGLOBIN. 14.1 g/dL (14.0-18.0); LYMPHOCYTES % 30.6 % (20.0-50.0); MEAN CORPUSCULAR HEMOGLOBIN 29.2 pg (28.0-32.0); MEAN CORPUSCULAR VOLUME 86.9 fL (80.0-94.0); MEAN PLATELET VOLUME 7.9 fl (7.4-10.4); MONOCYTES % 7.3 % (2.0-8.0); NEUTROPHILS % 55.9 % (40.0-76.0); PLATELET 211 x1000/uL (130-400); RED BLOOD CELL COUNT 4.83 mill/uL (4.7-6.1); RED CELL DISTRIBUTION WIDTH 13.7 % (11.6-14.6)
[2020-03-24 06:05] VITALS: BP 117/74
== END 2020-03-24 06:07 | disposition home or self-care (01) ==
LOC: ER 23:15
DX: J44.1 Chronic obstructive pulmonary disease with (acute) exacerbation (principal); B85.3 Phthiriasis; R03.0 Elevated blood-pressure reading, without diagnosis of hypertension; Z59.0 Homelessness
CPT/HCPCS: 36415; 71045; 80053; 83880; 84484; 85025; 93005; 94644; 96374; 99285; J2930; Z7610

== ENCOUNTER 2020-03-31 16:40 | Emergency (ER) | payer MEDICAID ==
[~2020-03-31] VITALS: Ht 170.2 cm; Wt 64.0 kg
[2020-03-31] MEDS ORDERED: SODIUM CHLORIDE 0.9% 1,000 ML IV ONE (18:28)
[2020-03-31] MEDS ORDERED: AZITHROMYCIN 500 MG TABLET PO ONE (18:30)
[2020-03-31] MEDS ORDERED: PREDNISONE 20MG TABLET PO ONE (18:30)
[2020-03-31] MEDS ORDERED: ALBUTEROL 6.7GM HFA INHALER ORI ONE (18:30)
[2020-03-31 19:06] LABS: BASOPHILS % 0.5 % (0.0-2.0); CHLORIDE 98 mEq/L (98-107); EOSINOPHILS % 5.1 % (0.0-5.0); HEMOGLOBIN. 14.1 g/dL (14.0-18.0); LYMPHOCYTES % 21.8 % (20.0-50.0); MEAN CORPUSCULAR HEMOGLOBIN 28.8 pg (28.0-32.0); MEAN CORPUSCULAR VOLUME 85.7 fL (80.0-94.0); MEAN PLATELET VOLUME 7.9 fl (7.4-10.4); MONOCYTES % 14.9 % (2.0-8.0); NEUTROPHILS % 57.7 % (40.0-76.0); PLATELET 209 x1000/uL (130-400); RED CELL DISTRIBUTION WIDTH 13.6 % (11.6-14.6)
[2020-04-01 00:57] VITALS: BP 136/85
== END 2020-04-01 01:02 | disposition home or self-care (01) ==
LOC: ER 16:44
DX: J44.1 Chronic obstructive pulmonary disease with (acute) exacerbation (principal); J45.901 Unspecified asthma with (acute) exacerbation
CPT/HCPCS: 36415; 71045; 80053; 85025; 93005; 94640; 96360; 99285; J7030; Z7610

== ENCOUNTER 2020-04-03 14:19 | Emergency (ER) | payer MEDICAID ==
[~2020-04-03] VITALS: Ht 177.8 cm; Wt 80.0 kg
[2020-04-03 14:20] VITALS: BP 118/74
[2020-04-03] MEDS ORDERED: ALBUTEROL (0.083%) 2.5MG/3ML NEB HHN STA (15:25)
[2020-04-03] MEDS ORDERED: IPRATROPIUM BROMIDE (0.02%) 0.5MG/2.5ML NEB HHN STA (15:25)
[2020-04-03] MEDS ORDERED: PREDNISONE 20MG TABLET PO STA (15:25)
[2020-04-03] MEDS ORDERED: ASPIRIN 81MG TABLET PO ONE (15:30)
== END 2020-04-03 16:37 | disposition home or self-care (01) ==
LOC: ER 14:30
DX: J44.1 Chronic obstructive pulmonary disease with (acute) exacerbation (principal)
CPT/HCPCS: 71045; 93005; 94640; 99283; J7512; Z7610

== ENCOUNTER 2020-04-11 02:39 | Emergency (ER) | payer MEDICAID ==
[~2020-04-11] VITALS: Ht 185.4 cm; Wt 86.0 kg
[2020-04-11] MEDS ORDERED: PREDNISONE 20MG TABLET PO STA (02:53)
[2020-04-11] MEDS ORDERED: IPRATROPIUM BROMIDE (0.02%) 0.5MG/2.5ML NEB HHN STA (02:53)
[2020-04-11] MEDS ORDERED: ALBUTEROL (0.083%) 2.5MG/3ML NEB HHN STA (02:53)
[2020-04-11 03:13] VITALS: BP 137/100
== END 2020-04-11 05:56 | disposition home or self-care (01) ==
LOC: ER 02:39
DX: J45.901 Unspecified asthma with (acute) exacerbation (principal); Z72.0 Tobacco use
CPT/HCPCS: 93005; 94644; 99285; J7512; Z7610

== ENCOUNTER 2020-04-17 23:10 | Emergency (ER) | payer MEDICAID ==
[~2020-04-17] VITALS: Ht 188 cm; Wt 68.0 kg
[2020-04-17 23:15] VITALS: BP 134/72
== END 2020-04-17 23:26 | disposition left against medical advice (07) ==
LOC: ER 23:23
DX: R06.02 Shortness of breath (principal); Z53.21 Procedure and treatment not carried out due to patient leaving prior to being seen by health care provider
CPT/HCPCS: 93005

== ENCOUNTER 2020-04-19 18:35 | Emergency (ER) | payer MEDICAID ==
[~2020-04-19] VITALS: Ht 182.9 cm; Wt 67.0 kg
[2020-04-19 18:37] VITALS: BP 179/113
[2020-04-19] MEDS ORDERED: ALBUTEROL (0.083%) 2.5MG/3ML NEB HHN STA (18:39)
[2020-04-19] MEDS ORDERED: PREDNISONE 20MG TABLET PO STA (18:39)
[2020-04-19] MEDS ORDERED: IPRATROPIUM BROMIDE (0.02%) 0.5MG/2.5ML NEB HHN STA (18:39)
== END 2020-04-19 19:01 | disposition left against medical advice (07) ==
LOC: ER 18:35
DX: J45.901 Unspecified asthma with (acute) exacerbation (principal); Z72.0 Tobacco use
CPT/HCPCS: 93005; 99283

== ENCOUNTER 2020-04-21 19:51 | Emergency (ER) | payer MEDICAID ==
[~2020-04-21] VITALS: Ht 177.8 cm; Wt 68.0 kg
[2020-04-21 20:11] VITALS: BP 164/94
[2020-04-21] MEDS ORDERED: ALBUTEROL 6.7GM HFA INHALER ORI ONE ×3 (21:15)
[2020-04-21] MEDS ORDERED: PREDNISONE 20MG TABLET PO ONE (21:15)
== END 2020-04-21 21:45 | disposition left against medical advice (07) ==
LOC: ER 19:51
DX: J44.1 Chronic obstructive pulmonary disease with (acute) exacerbation (principal)
CPT/HCPCS: 99283; Z7610

== ENCOUNTER 2020-05-03 02:52 | Emergency (ER) | payer MEDICAID ==
[~2020-05-03] VITALS: Ht 185.4 cm; Wt 75.0 kg
[2020-05-03 02:55] VITALS: BP 145/96
[2020-05-03] MEDS ORDERED: ALBUTEROL (0.083%) 2.5MG/3ML NEB HHN STA (05:35)
[2020-05-03] MEDS ORDERED: IPRATROPIUM BROMIDE (0.02%) 0.5MG/2.5ML NEB HHN STA (05:35)
== END 2020-05-03 06:18 | disposition home or self-care (01) ==
LOC: ER 02:52
DX: J44.1 Chronic obstructive pulmonary disease with (acute) exacerbation (principal)
CPT/HCPCS: 99283

== ENCOUNTER 2020-05-27 15:06 | Emergency (ER) | payer OTHER ==
[~2020-05-27] VITALS: Ht 182.9 cm; Wt 65.0 kg
[2020-05-27 16:55] LABS: BASOPHILS % 0.9 % (0.0-2.0); EOSINOPHILS % 3.9 % (0.0-5.0); HEMATOCRIT. 43.1 % (42.0-52.0); HEMOGLOBIN. 14.1 g/dL (14.0-18.0); LYMPHOCYTES % 27.5 % (20.0-50.0); MEAN CORPUSCULAR HEMOGLOBIN 28.5 pg (28.0-32.0); MEAN CORPUSCULAR VOLUME 86.9 fL (80.0-94.0); MONOCYTES % 14.3 % (2.0-8.0); NEUTROPHILS % 53.4 % (40.0-76.0); PLATELET 223 x1000/uL (130-400); RED BLOOD CELL COUNT 4.96 mill/uL (4.7-6.1); RED CELL DISTRIBUTION WIDTH 13.7 % (11.6-14.6)
[2020-05-27 17:03] LABS: CHLORIDE 99 mEq/L (98-107)
[2020-05-27 17:29] VITALS: BP 145/89
[2020-07-05] MEDS ORDERED: ALBU6.7H9 ORI (14:02)
[2020-07-05] MEDS ORDERED: FLUT1DIS3 INH (14:02)
[2020-07-05] MEDS ORDERED: P20 MT (14:02)
== END 2020-05-27 17:31 | disposition home or self-care (01) ==
LOC: ER 15:06
DX: J45.901 Unspecified asthma with (acute) exacerbation (principal); J44.9 Chronic obstructive pulmonary disease, unspecified
CPT/HCPCS: 36415; 71045; 80053; 85025; 87635; 93005; 99284

== ENCOUNTER 2020-05-29 04:51 | Emergency (ER) | payer OTHER ==
[~2020-05-29] VITALS: Ht 182.9 cm; Wt 73.0 kg
[2020-05-29] MEDS ORDERED: ALBUTEROL (0.083%) 2.5MG/3ML NEB HHN STA (05:11)
[2020-05-29] MEDS ORDERED: PREDNISONE 20MG TABLET PO STA (05:11)
[2020-05-29 06:50] VITALS: BP 142/84
== END 2020-05-29 07:10 | disposition home or self-care (01) ==
LOC: ER 04:51
DX: R06.02 Shortness of breath (principal); J45.909 Unspecified asthma, uncomplicated
CPT/HCPCS: 71045; 93005; 94640; 99283; J7512; Z7610

== ENCOUNTER 2020-06-19 12:14 | Emergency (ER) | payer OTHER ==
[~2020-06-19] VITALS: Ht 175.3 cm; Wt 67.0 kg
[2020-06-19] MEDS ORDERED: METHYLPREDNISOLONE SOD SUCC 125 MG/2 ML VIAL IV STA (12:26)
[2020-06-19] MEDS ORDERED: IPRATROPIUM BROMIDE (0.02%) 0.5MG/2.5ML NEB HHN STA (12:26)
[2020-06-19] MEDS ORDERED: MAGNESIUM 2 G PREMIX 50 ML IV ONE (12:30)
[2020-06-19] MEDS: ALBUTEROL (0.083%) 2.5MG/3ML NEB HHN SCH ×3 (12:42→13:30)
[2020-06-19 13:01] LABS: EOSINOPHILS % 2.6 % (0.0-5.0); HEMATOCRIT. 39.6 % (42.0-52.0); HEMOGLOBIN. 13.3 g/dL (14.0-18.0); LYMPHOCYTES % 27.5 % (20.0-50.0); MEAN CORPUSCULAR HEMOGLOBIN 28.6 pg (28.0-32.0); MEAN CORPUSCULAR VOLUME 85.2 fL (80.0-94.0); MEAN PLATELET VOLUME 7.8 fl (7.4-10.4); MONOCYTES % 10.7 % (2.0-8.0); NEUTROPHILS % 58.2 % (40.0-76.0); PLATELET 253 x1000/uL (130-400); RED BLOOD CELL COUNT 4.65 mill/uL (4.7-6.1); RED CELL DISTRIBUTION WIDTH 13.4 % (11.6-14.6)
[2020-06-19 13:07] LABS: CHLORIDE 100 mEq/L (98-107)
[2020-06-19] MEDS ORDERED: SODIUM CHLORIDE 0.9% 1,000 ML IV ONE (14:15)
[2020-06-19] MEDS ORDERED: DOXYCYCLINE 100 MG in DEXT 5% WATER 100 ML IV SCH (14:15)
[2020-06-19] MEDS ORDERED: CEFTRIAXONE 1 G PREMIX 50 ML IV NR (14:15)
[2020-06-19 17:29] VITALS: BP 135/78
[2020-07-05] MEDS ORDERED: ALBU6.7H9 ORI (14:02)
[2020-07-05] MEDS ORDERED: P20 MT (14:02)
[2020-07-05] MEDS ORDERED: FLUT1DIS3 INH (14:02)
== END 2020-06-19 17:52 | disposition short-term general hospital (02) ==
LOC: ER 12:25
DX: J18.9 Pneumonia, unspecified organism (principal); J44.1 Chronic obstructive pulmonary disease with (acute) exacerbation; U07.1 COVID-19
CPT/HCPCS: 36415; 71045; 80053; 83880; 84484; 85025; 93005; 94644; 96361; 96365; 96367; 96375; 99285; J0696; J2930; J3475; J3490; J7060; Z7610

== ENCOUNTER 2020-07-11 16:41 | Emergency (ER) | payer OTHER ==
[~2020-07-11] VITALS: Ht 177.8 cm; Wt 64.0 kg
[~2020-07-11 16:41] MED LIST: ALBU6.7H9 ORI; FLUT1DIS3 INH; P20 MT
[2020-07-11 16:45] VITALS: BP 154/97
== END 2020-07-11 17:04 | disposition left against medical advice (07) ==
LOC: ER 16:41
DX: Z53.21 Procedure and treatment not carried out due to patient leaving prior to being seen by health care provider (principal); R06.02 Shortness of breath
CPT/HCPCS: 93005

== ENCOUNTER 2020-07-26 15:31 | Emergency (ER) | payer OTHER ==
[~2020-07-26] VITALS: Ht 177.8 cm; Wt 80.0 kg
[2020-07-26] MEDS ORDERED: PREDNISONE 20MG TABLET PO STA (16:04)
[2020-07-26] MEDS ORDERED: ALBUTEROL 6.7GM HFA INHALER ORI ONE (16:15)
[2020-07-26] MEDS ORDERED: ASPIRIN 81MG TABLET PO ONE (16:15)
[2020-07-26 20:02] VITALS: BP 133/83
[2020-07-26 20:54] LABS: BASOPHILS % 0.8 % (0.0-2.0); EOSINOPHILS % 2.4 % (0.0-5.0); HEMATOCRIT. 41.7 % (42.0-52.0); HEMOGLOBIN. 13.6 g/dL (14.0-18.0); LYMPHOCYTES % 21.2 % (20.0-50.0); MEAN CORPUSCULAR VOLUME 85.7 fL (80.0-94.0); MONOCYTES % 10.7 % (2.0-8.0); NEUTROPHILS % 64.9 % (40.0-76.0); PLATELET 248 x1000/uL (130-400); RED BLOOD CELL COUNT 4.86 mill/uL (4.7-6.1); RED CELL DISTRIBUTION WIDTH 13.8 % (11.6-14.6)
[2020-07-26 21:00] LABS: CHLORIDE 101 mEq/L (98-107)
== END 2020-07-27 01:43 | disposition home or self-care (01) ==
LOC: ER 15:31
DX: J44.1 Chronic obstructive pulmonary disease with (acute) exacerbation (principal); R06.03 Acute respiratory distress; E87.1 Hypo-osmolality and hyponatremia; F17.210 Nicotine dependence, cigarettes, uncomplicated; F19.10 Other psychoactive substance abuse, uncomplicated; D64.9 Anemia, unspecified; I10 Essential (primary) hypertension; R46.0 Very low level of personal hygiene; Z59.0 Homelessness
CPT/HCPCS: 36415; 71045; 80053; 83880; 84484; 85025; 87040; 93005; 99285; J7512; Z7610

== ENCOUNTER 2020-07-28 21:46 | Emergency (ER) | payer MEDICAID, OTHER ==
[~2020-07-28] VITALS: Ht 182.9 cm; Wt 80.0 kg
[2020-07-28 21:47] VITALS: BP 123/88
== END 2020-07-28 23:17 | disposition left against medical advice (07) ==
LOC: ER 21:46 → CANBEDREQ 07-29 10:23
DX: R06.02 Shortness of breath (principal); F14.10 Cocaine abuse, uncomplicated; I10 Essential (primary) hypertension; J44.9 Chronic obstructive pulmonary disease, unspecified; J45.909 Unspecified asthma, uncomplicated; G40.909 Epilepsy, unspecified, not intractable, without status epilepticus; Z59.0 Homelessness; Z87.01 Personal history of pneumonia (recurrent)
CPT/HCPCS: 71045; 99283

== ENCOUNTER 2020-08-04 17:39 | Inpatient (IN) | payer MEDICAID ==
[~2020-08-04] VITALS: Ht 182.9 cm; Wt 77.1 kg
[2020-08-04 20:30] LABS: BASOPHILS % 0.4 % (0.0-2.0); EOSINOPHILS % 0.5 % (0.0-5.0); HEMATOCRIT. 37.9 % (42.0-52.0); HEMOGLOBIN. 12.9 g/dL (14.0-18.0); LYMPHOCYTES % 12.3 % (20.0-50.0); MEAN CORPUSCULAR HEMOGLOBIN 28.9 pg (28.0-32.0); MEAN CORPUSCULAR VOLUME 84.6 fL (80.0-94.0); MEAN PLATELET VOLUME 7.3 fl (7.4-10.4); MONOCYTES % 6.8 % (2.0-8.0); PLATELET 253 x1000/uL (130-400); RED BLOOD CELL COUNT 4.48 mill/uL (4.7-6.1); RED CELL DISTRIBUTION WIDTH 14.1 % (11.6-14.6)
[2020-08-04 20:31] LABS: CHLORIDE 102 mEq/L (98-107)
[2020-08-04] MEDS ORDERED: CEFTRIAXONE 1 G PREMIX 50 ML IV ONE (21:00)
[2020-08-04] MEDS ORDERED: IPRATROPIUM BROMIDE (0.02%) 0.5MG/2.5ML NEB HHN STA (21:22)
[2020-08-04] MEDS ORDERED: METHYLPREDNISOLONE SOD SUCC 125 MG/2 ML VIAL IV STA (21:22)
[2020-08-04] MEDS: ALBUTEROL (0.083%) 2.5MG/3ML NEB HHN SCH ×3 (22:40→23:10)
[2020-08-05] MEDS: AZITHROMYCIN 500 MG in DEXT 5% WATER 250 ML IV SCH ×2 (01:21→22:29)
[2020-08-06 10:45] VITALS: BP 128/69
[2020-08-06 12:00] VITALS: BP 135/73
[2020-08-06] MEDS ORDERED: ACETAMINOPHEN 325MG TABLET PO PRN (13:30)
[2020-08-06] MEDS ORDERED: ALBUTEROL 6.7GM HFA INHALER ORI PRN (13:30)
[2020-08-06] MEDS ORDERED: ONDANSETRON HCL 4MG/2ML INJ IV PRN (13:30)
[2020-08-06] MEDS: METHYLPREDNISOLONE SOD SUCC 40 MG/ML VIAL IV SCH (14:12)
[2020-08-06] MEDS: ENOXAPARIN 40MG/0.4ML SYR SUBCUT SCH (17:17)
[2020-08-06 20:00] VITALS: BP 92/57
[2020-08-07] VITALS: BP 111/71
[2020-08-07] MEDS: AZITHROMYCIN 500 MG in DEXT 5% WATER 250 ML IV SCH (03:14)
[2020-08-07] MEDS: METHYLPREDNISOLONE SOD SUCC 40 MG/ML VIAL IV SCH ×4 (03:15→23:20)
[2020-08-07 04:00] VITALS: BP 114/75
[2020-08-07 08:00] VITALS: BP 116/68
[2020-08-07 12:00] VITALS: BP 114/71
[2020-08-07] MEDS ORDERED: IPRATROPIUM/ALBUTEROL 0.5-3(2.5)MG/3ML NEB HHN PRN (15:15)
[2020-08-07 16:00] VITALS: BP 155/93
[2020-08-07] MEDS: ENOXAPARIN 40MG/0.4ML SYR SUBCUT SCH (18:13)
[2020-08-07 20:00] VITALS: BP 128/77
[2020-08-08] VITALS: BP 120/79
[2020-08-08 04:00] VITALS: BP 133/81
[2020-08-08] MEDS: METHYLPREDNISOLONE SOD SUCC 40 MG/ML VIAL IV SCH ×3 (06:01→22:20)
[2020-08-08 08:00] VITALS: BP 140/82
[2020-08-08 12:00] VITALS: BP 114/75
[2020-08-08] MEDS ORDERED: FLUT1DIS3 INH (12:18)
[2020-08-08] MEDS ORDERED: P20 MT (12:18)
[2020-08-08] MEDS ORDERED: ALBU6.7H9 ORI (12:18)
[2020-08-08] MEDS: ENOXAPARIN 40MG/0.4ML SYR SUBCUT SCH ×2 (14:46→21:54)
[2020-08-08 16:00] VITALS: BP 116/62
[2020-08-08 20:00] VITALS: BP 122/87
[2020-08-09] VITALS: BP 110/69
[2020-08-09 04:00] VITALS: BP 134/84
[2020-08-09] MEDS: METHYLPREDNISOLONE SOD SUCC 40 MG/ML VIAL IV SCH ×2 (07:46→13:31)
[2020-08-09] MEDS: ENOXAPARIN 40MG/0.4ML SYR SUBCUT SCH (07:50)
[2020-08-09 08:00] VITALS: BP 133/66
[2020-08-09 12:00] VITALS: BP 109/65
[2020-08-09 13:14] VITALS: BP 133/66
== END 2020-08-09 16:29 | disposition home or self-care (01) | DRG 140 ==
LOC: ER 17:39 → MICUSO 20:41 → 7WST 08-06 08:36 → 5WST 08-08 10:49
PROVIDERS: ADMIT Internal Medicine; ATTEND Internal Medicine
DX: J44.1 Chronic obstructive pulmonary disease with (acute) exacerbation (principal); E87.1 Hypo-osmolality and hyponatremia; F14.90 Cocaine use, unspecified, uncomplicated; F17.210 Nicotine dependence, cigarettes, uncomplicated; Z20.822 Contact with and (suspected) exposure to COVID-19; G40.909 Epilepsy, unspecified, not intractable, without status epilepticus; Z71.51 Drug abuse counseling and surveillance of drug abuser; Z71.6 Tobacco abuse counseling
CPT/HCPCS: 36415; 71045; 80053; 83605; 83880; 84484; 85025; 87635; 93005; 94640; 96365; 99285; J0456; J0696; J1650; J2920; J2930; J7060

== ENCOUNTER 2020-08-31 07:26 | Emergency (ER) | payer OTHER ==
[~2020-08-31] VITALS: Ht 185.4 cm; Wt 82.0 kg
[2020-08-31 08:19] VITALS: BP 148/94
[2020-08-31 08:34] LABS: BASOPHILS % 0.7 % (0.0-2.0); EOSINOPHILS % 3.5 % (0.0-5.0); HEMATOCRIT. 41.4 % (42.0-52.0); HEMOGLOBIN. 13.9 g/dL (14.0-18.0); LYMPHOCYTES % 23.4 % (20.0-50.0); MEAN CORPUSCULAR VOLUME 86.3 fL (80.0-94.0); MEAN PLATELET VOLUME 7.7 fl (7.4-10.4); MONOCYTES % 12.6 % (2.0-8.0); NEUTROPHILS % 59.8 % (40.0-76.0); PLATELET 248 x1000/uL (130-400); RED BLOOD CELL COUNT 4.79 mill/uL (4.7-6.1); RED CELL DISTRIBUTION WIDTH 14.3 % (11.6-14.6)
[2020-08-31 08:55] LABS: CHLORIDE 98 mEq/L (98-107)
== END 2020-08-31 10:33 | disposition home or self-care (01) ==
LOC: ER 07:52
DX: J45.901 Unspecified asthma with (acute) exacerbation (principal); R06.82 Tachypnea, not elsewhere classified; R03.0 Elevated blood-pressure reading, without diagnosis of hypertension; G40.909 Epilepsy, unspecified, not intractable, without status epilepticus; J44.9 Chronic obstructive pulmonary disease, unspecified; J98.11 Atelectasis; F14.10 Cocaine abuse, uncomplicated
CPT/HCPCS: 36415; 71045; 80053; 83880; 84484; 85025; 93005; 99285

== ENCOUNTER 2020-11-20 03:33 | Emergency (ER) | payer OTHER ==
[~2020-11-20] VITALS: Ht 182.9 cm; Wt 90.0 kg
[2020-11-20] MEDS ORDERED: METHYLPREDNISOLONE SOD SUCC 125 MG/2 ML VIAL IV STA (04:05)
[2020-11-20] MEDS ORDERED: IPRATROPIUM BROMIDE (0.02%) 0.5MG/2.5ML NEB HHN STA (04:05)
[2020-11-20] MEDS ORDERED: ALBUTEROL (0.083%) 2.5MG/3ML NEB HHN SCH (04:30)
[2020-11-20 04:41] LABS: BASOPHILS % 0.5 % (0.0-2.0); EOSINOPHILS % 1.6 % (0.0-5.0); HEMATOCRIT. 43.3 % (42.0-52.0); HEMOGLOBIN. 14.2 g/dL (14.0-18.0); LYMPHOCYTES % 16.8 % (20.0-50.0); MEAN CORPUSCULAR VOLUME 85.7 fL (80.0-94.0); MEAN PLATELET VOLUME 7.5 fl (7.4-10.4); MONOCYTES % 14.2 % (2.0-8.0); NEUTROPHILS % 66.9 % (40.0-76.0); PLATELET 183 x1000/uL (130-400); RED BLOOD CELL COUNT 5.06 mill/uL (4.7-6.1); RED CELL DISTRIBUTION WIDTH 14.4 % (11.6-14.6)
[2020-11-20 04:48] LABS: CHLORIDE 101 mEq/L (98-107)
[2020-11-20] MEDS ORDERED: PRED10TA MT (05:57)
[2020-11-20] MEDS ORDERED: ALBU6.7H9 INH (05:57)
[2020-11-20 06:48] VITALS: BP 112/69
== END 2020-11-20 07:08 | disposition home or self-care (01) ==
LOC: ER 03:44
DX: J44.1 Chronic obstructive pulmonary disease with (acute) exacerbation (principal); F14.10 Cocaine abuse, uncomplicated; Z79.899 Other long term (current) drug therapy
CPT/HCPCS: 36415; 71045; 80053; 83880; 84484; 85025; 85379; 94640; 96374; 99284; J2930; Z7610

== ENCOUNTER 2020-11-25 18:49 | Emergency (ER) | payer OTHER ==
[~2020-11-25] VITALS: Ht 162.6 cm; Wt 54.0 kg
[~2020-11-25 18:49] MED LIST changes: +ALBU6.7H9 INH; +PRED10TA MT
[2020-11-25] MEDS ORDERED: ALBUTEROL (0.083%) 2.5MG/3ML NEB HHN STA (20:39)
[2020-11-25] MEDS ORDERED: IPRATROPIUM BROMIDE (0.02%) 0.5MG/2.5ML NEB HHN STA (20:39)
[2020-11-25 22:52] LABS: BASOPHILS % 1.1 % (0.0-2.0); EOSINOPHILS % 4.1 % (0.0-5.0); HEMATOCRIT. 38.9 % (42.0-52.0); HEMOGLOBIN. 12.9 g/dL (14.0-18.0); LYMPHOCYTES % 38.5 % (20.0-50.0); MEAN CORPUSCULAR HEMOGLOBIN 28.4 pg (28.0-32.0); MEAN CORPUSCULAR VOLUME 85.4 fL (80.0-94.0); MEAN PLATELET VOLUME 7.8 fl (7.4-10.4); MONOCYTES % 12.2 % (2.0-8.0); NEUTROPHILS % 44.1 % (40.0-76.0); PLATELET 252 x1000/uL (130-400); RED BLOOD CELL COUNT 4.56 mill/uL (4.7-6.1); RED CELL DISTRIBUTION WIDTH 14.5 % (11.6-14.6)
[2020-11-25 22:57] LABS: CHLORIDE 102 mEq/L (98-107)
[2020-11-25 23:00] LABS: *AMPHETAMINES SCREEN URINE NEGATIVE (NEGATIVE); *BARBITURATES SCREEN URINE NEGATIVE (NEGATIVE)
[2020-11-25 23:01] LABS: *BENZODIAZEPINES SCREEN URINE NEGATIVE (NEGATIVE); *COCAINE SCREEN URINE PRESUMTIVE POSITIVE (NEGATIVE); CANNABINOID URINE SCREEN NEGATIVE (NEGATIVE); METHADONE URINE SCREEN NEGATIVE (NEGATIVE); OPIATES URINE SCREEN NEGATIVE (NEGATIVE); PHENCYCLIDINE URINE SCREEN NEGATIVE (NEGATIVE)
[2020-11-26] MEDS ORDERED: ALBU6.7H9 INH (00:05)
[2020-11-26 00:50] VITALS: BP 142/81
== END 2020-11-26 00:52 | disposition home or self-care (01) ==
LOC: ER 18:49
DX: J45.901 Unspecified asthma with (acute) exacerbation (principal); F14.13 Cocaine abuse, unspecified with withdrawal; R03.0 Elevated blood-pressure reading, without diagnosis of hypertension
CPT/HCPCS: 36415; 71045; 80053; 80305; 84484; 85025; 93005; 94640; 99284; Z7610

== ENCOUNTER 2020-11-29 16:56 | Emergency (ER) | payer OTHER ==
[~2020-11-29] VITALS: Ht 185.4 cm; Wt 82.0 kg
[2020-11-29] MEDS ORDERED: IPRATROPIUM BROMIDE (0.02%) 0.5MG/2.5ML NEB HHN STA (17:45)
[2020-11-29] MEDS ORDERED: ALBUTEROL (0.083%) 2.5MG/3ML NEB HHN STA (17:45)
[2020-11-29] MEDS ORDERED: METHYLPREDNISOLONE SOD SUCC 125 MG/2 ML VIAL IV STA (17:45)
[2020-11-29] MEDS ORDERED: ALBU6.7H9 INH (19:48)
[2020-11-29] MEDS ORDERED: LEVE500T98 MT (19:50)
[2020-11-29] MEDS ORDERED: KEPP500 MT (19:50)
[2020-11-29] MEDS ORDERED: P50 MT (19:50)
[2020-11-29 20:25] VITALS: BP 103/68
== END 2020-11-29 20:51 | disposition home or self-care (01) ==
LOC: ER 16:56
DX: J44.1 Chronic obstructive pulmonary disease with (acute) exacerbation (principal); J45.901 Unspecified asthma with (acute) exacerbation; F17.200 Nicotine dependence, unspecified, uncomplicated; Z79.899 Other long term (current) drug therapy; Z98.890 Other specified postprocedural states
CPT/HCPCS: 71045; 93005; 94640; 94644; 96374; 99285; J2930; Z7610

== ENCOUNTER 2020-12-12 06:31 | Emergency (ER) | payer MEDICAID, OTHER ==
[~2020-12-12] VITALS: Ht 175.3 cm; Wt 57.0 kg
[~2020-12-12 06:31] MED LIST changes: +KEPP500 MT; +LEVE500T98 MT; +P50 MT
[2020-12-12] MEDS ORDERED: PREDNISONE 20MG TABLET PO STA (06:48)
[2020-12-12] MEDS ORDERED: ALBUTEROL (0.083%) 2.5MG/3ML NEB HHN STA (06:48)
[2020-12-12] MEDS ORDERED: IPRATROPIUM BROMIDE (0.02%) 0.5MG/2.5ML NEB HHN STA (06:48)
[2020-12-12 06:56] VITALS: BP 143/100
[2020-12-12] MEDS ORDERED: ALBU6.7H9 INH (08:33)
[2020-12-12] MEDS ORDERED: P50 PO (08:33)
== END 2020-12-12 08:57 | disposition home or self-care (01) ==
LOC: ER 06:45
DX: J45.901 Unspecified asthma with (acute) exacerbation (principal)
CPT/HCPCS: 93005; 94640; 99283; J7512; Z7610

== ENCOUNTER 2020-12-18 02:54 | Emergency (ER) | payer MEDICAID ==
[~2020-12-18] VITALS: Ht 188 cm; Wt 91.0 kg
[~2020-12-18 02:54] MED LIST changes: +P50 PO
[2020-12-18] MEDS ORDERED: ALBUTEROL (0.083%) 2.5MG/3ML NEB HHN STA (03:05)
[2020-12-18] MEDS ORDERED: IPRATROPIUM BROMIDE (0.02%) 0.5MG/2.5ML NEB HHN STA (03:05)
[2020-12-18] MEDS ORDERED: MAGNESIUM 2 G PREMIX 50 ML IV STA (03:05)
[2020-12-18] MEDS ORDERED: METHYLPREDNISOLONE SOD SUCC 125 MG/2 ML VIAL IV STA (03:05)
[2020-12-18] MEDS ORDERED: ALBU6.7H9 INH (05:59)
[2020-12-18 06:10] VITALS: BP 121/68
== END 2020-12-18 06:22 | disposition home or self-care (01) ==
LOC: ER 02:54
DX: J44.1 Chronic obstructive pulmonary disease with (acute) exacerbation (principal); F17.200 Nicotine dependence, unspecified, uncomplicated; F19.10 Other psychoactive substance abuse, uncomplicated; Z79.899 Other long term (current) drug therapy
CPT/HCPCS: 71045; 94644; 96365; 96366; 96375; 99285; J2930; J3475; Z7610

== ENCOUNTER 2020-12-29 14:49 | Emergency (ER) | payer MEDICAID ==
[~2020-12-29] VITALS: Ht 175.3 cm; Wt 69.0 kg
[2020-12-29] MEDS ORDERED: IPRATROPIUM BROMIDE (0.02%) 0.5MG/2.5ML NEB HHN STA (15:09)
[2020-12-29] MEDS ORDERED: ALBUTEROL (0.083%) 2.5MG/3ML NEB HHN STA (15:09)
[2020-12-29] MEDS ORDERED: METHYLPREDNISOLONE SOD SUCC 125 MG/2 ML VIAL IV STA (15:09)
[2020-12-29] MEDS ORDERED: ALBU6.7H9 INH (16:58)
[2020-12-29] MEDS ORDERED: P50 PO (16:58)
[2020-12-29 18:00] VITALS: BP 141/87
== END 2020-12-29 18:00 | disposition home or self-care (01) ==
LOC: ER 14:49
DX: J45.901 Unspecified asthma with (acute) exacerbation (principal); F17.200 Nicotine dependence, unspecified, uncomplicated; F19.10 Other psychoactive substance abuse, uncomplicated; Z79.899 Other long term (current) drug therapy
CPT/HCPCS: 71045; 94644; 96374; 99285; J2930; Z7610

== ENCOUNTER 2021-01-04 04:03 | Emergency (ER) | payer MEDICAID, OTHER ==
[~2021-01-04] VITALS: Ht 182.9 cm; Wt 79.0 kg
[2021-01-04] MEDS ORDERED: IPRATROPIUM BROMIDE (0.02%) 0.5MG/2.5ML NEB HHN STA (04:14)
[2021-01-04] MEDS ORDERED: PREDNISONE 20MG TABLET PO STA (04:14)
[2021-01-04] MEDS ORDERED: ALBUTEROL (0.083%) 2.5MG/3ML NEB HHN STA (04:14)
[2021-01-04 06:25] VITALS: BP 127/78
== END 2021-01-04 06:34 | disposition home or self-care (01) ==
LOC: ER 04:03
DX: J44.1 Chronic obstructive pulmonary disease with (acute) exacerbation (principal); F12.10 Cannabis abuse, uncomplicated; Z79.899 Other long term (current) drug therapy
CPT/HCPCS: 71045; 93005; 94640; 99283; J7512; Z7610

== ENCOUNTER 2021-01-07 10:21 | Emergency (ER) | payer OTHER ==
[~2021-01-07] VITALS: Ht 177.8 cm; Wt 86.0 kg
[2021-01-07] MEDS ORDERED: PREDNISONE 20MG TABLET PO STA (10:41)
[2021-01-07] MEDS ORDERED: IPRATROPIUM BROMIDE (0.02%) 0.5MG/2.5ML NEB HHN STA (10:41)
[2021-01-07] MEDS ORDERED: ALBUTEROL (0.083%) 2.5MG/3ML NEB HHN STA (10:41)
[2021-01-07 12:16] VITALS: BP 120/78
== END 2021-01-07 12:17 | disposition home or self-care (01) ==
LOC: ER 10:21
DX: J44.1 Chronic obstructive pulmonary disease with (acute) exacerbation (principal); F12.10 Cannabis abuse, uncomplicated; Z79.899 Other long term (current) drug therapy
CPT/HCPCS: 94640; 99283; J7512; Z7610

== ENCOUNTER 2021-01-10 16:22 | Emergency (ER) | payer OTHER ==
[~2021-01-10] VITALS: Ht 172.7 cm; Wt 88.0 kg
[2021-01-10 16:27] VITALS: BP 160/112
[2021-01-10] MEDS ORDERED: PREDNISONE 20MG TABLET PO ONE (17:00)
[2021-01-10] MEDS ORDERED: IPRATROPIUM/ALBUTEROL 0.5-3(2.5)MG/3ML NEB HHN ONE (17:00)
[2021-01-10] MEDS ORDERED: ALBU6.7H9 INH (17:31)
[2021-01-10] MEDS ORDERED: P20 MT (17:31)
== END 2021-01-10 18:04 | disposition home or self-care (01) ==
LOC: ER 16:22
DX: J44.1 Chronic obstructive pulmonary disease with (acute) exacerbation (principal); F12.10 Cannabis abuse, uncomplicated; F17.200 Nicotine dependence, unspecified, uncomplicated; Z79.899 Other long term (current) drug therapy; Z59.0 Homelessness
CPT/HCPCS: 94640; 99283; J7512; Z7610

== ENCOUNTER 2021-01-22 18:12 | Emergency (ER) | payer OTHER ==
[~2021-01-22] VITALS: Ht 188 cm; Wt 82.0 kg
[2021-01-23 01:51] VITALS: BP 125/63
[2021-01-23] MEDS ORDERED: IPRATROPIUM BROMIDE (0.02%) 0.5MG/2.5ML NEB HHN STA (03:27)
[2021-01-23] MEDS ORDERED: ALBUTEROL (0.083%) 2.5MG/3ML NEB HHN STA (03:27)
[2021-01-23] MEDS ORDERED: PREDNISONE 20MG TABLET PO STA (03:28)
[2021-01-23] MEDS ORDERED: P50 MT (04:37)
[2021-01-23] MEDS ORDERED: ALBU6.7H9 INH (04:37)
== END 2021-01-23 05:00 | disposition home or self-care (01) ==
LOC: ER 18:12
DX: J45.901 Unspecified asthma with (acute) exacerbation (principal)
CPT/HCPCS: 94640; 99283; J7512; Z7610

== ENCOUNTER 2021-01-24 08:30 | Emergency (ER) | payer OTHER ==
[~2021-01-24] VITALS: Ht 182.9 cm; Wt 73.0 kg
[2021-01-24] MEDS ORDERED: IPRATROPIUM BROMIDE (0.02%) 0.5MG/2.5ML NEB HHN STA (08:44)
[2021-01-24] MEDS ORDERED: PREDNISONE 20MG TABLET PO STA (08:44)
[2021-01-24] MEDS: ALBUTEROL (0.083%) 2.5MG/3ML NEB HHN SCH ×3 (09:16→10:11)
[2021-01-24 09:27] LABS: BG BASE EXCESS 1.3 mmol/L (-2.0-2.0); BG CARBOXYHEMOGLOBIN 1.9 % (0.5-1.5); BG DEOXYHEMOGLOBIN 6.2 % (0.0-5.0); BG FRACTION INSPIRED OXYGEN 21; BG METHEMOGLOBIN 0.3 % (0.0-1.5); BG OXYGEN SATURATION 93.7 % (92.0-98.5); BG OXYHEMOGLOBIN 91.6 % (94.0-97.0); BG PH 7.448 (7.350-7.450); BG PO2 66.2 mmHg (75.0-100.0); BG SAMPLE SITE LEFT BRACHIAL; BG TOTAL HEMOGLOBIN 15.2 g/dL (12.0-18.0); BG VENT MODE ROOM AIR
[2021-01-24 09:27] LABS: BASOPHILS % 0.8 % (0.0-2.0); HEMATOCRIT. 41.9 % (42.0-52.0); HEMOGLOBIN. 14.3 g/dL (14.0-18.0); LYMPHOCYTES % 36.2 % (20.0-50.0); MEAN CORPUSCULAR HEMOGLOBIN 29.5 pg (28.0-32.0); MEAN CORPUSCULAR VOLUME 86.4 fL (80.0-94.0); MEAN PLATELET VOLUME 7.3 fl (7.4-10.4); MONOCYTES % 9.8 % (2.0-8.0); NEUTROPHILS % 51.2 % (40.0-76.0); PLATELET 227 x1000/uL (130-400); RED BLOOD CELL COUNT 4.85 mill/uL (4.7-6.1); RED CELL DISTRIBUTION WIDTH 14.6 % (11.6-14.6)
[2021-01-24 09:33] LABS: CHLORIDE 102 mEq/L (98-107)
[2021-01-24 11:10] LABS: PROTHROMBIN TIME 10.9 sec (9.6-11.0)
[2021-01-24 13:18] LABS: CLARITY URINE CLEAR (CLEAR); COLOR URINE YELLOW (YELLOW); KETONES URINE NEGATIVE (NEGATIVE); LEUKOCYTE ESTERASE URINE NEGATIVE (NEGATIVE); NITRITE URINE NEGATIVE (NEGATIVE); OCCULT BLOOD URINE TRACE (NEGATIVE); PH URINE 5.5 (4.5-8.0); PROTEIN URINE NEGATIVE (NEGATIVE); SPECIFIC GRAVITY URINE 1.012 (1.005-1.030); UROBILINOGEN URINE 0.2 E.U./dL (0.2-1.0)
[2021-01-24 15:11] LABS: *COCAINE SCREEN URINE PRESUMTIVE POSITIVE (NEGATIVE); CANNABINOID URINE SCREEN NEGATIVE (NEGATIVE); METHADONE URINE SCREEN NEGATIVE (NEGATIVE); OPIATES URINE SCREEN NEGATIVE (NEGATIVE); PHENCYCLIDINE URINE SCREEN NEGATIVE (NEGATIVE)
[2021-01-24 15:12] LABS: *AMPHETAMINES SCREEN URINE NEGATIVE (NEGATIVE); *BARBITURATES SCREEN URINE NEGATIVE (NEGATIVE); *BENZODIAZEPINES SCREEN URINE NEGATIVE (NEGATIVE)
[2021-01-25 00:20] VITALS: BP 111/71
== END 2021-01-25 01:19 | disposition short-term general hospital (02) ==
LOC: ER 08:30
DX: J44.1 Chronic obstructive pulmonary disease with (acute) exacerbation (principal); R09.02 Hypoxemia; R00.0 Tachycardia, unspecified; F17.290 Nicotine dependence, other tobacco product, uncomplicated; F12.10 Cannabis abuse, uncomplicated; Z79.899 Other long term (current) drug therapy; Z59.0 Homelessness; Z20.822 Contact with and (suspected) exposure to COVID-19
CPT/HCPCS: 36415; 36600; 71045; 80053; 80305; 81003; 82375; 82805; 83605; 83880; 84145; 84484; 85025; 85610; 87040; 87086; 93005; 94640; 99285; 99406; C9803; J7512; U0003; U0005; Z7610

== ENCOUNTER 2021-02-23 16:33 | Emergency (ER) | payer OTHER ==
[~2021-02-23] VITALS: Ht 177.8 cm; Wt 82.0 kg
[2021-02-23 16:36] VITALS: BP 133/88
[2021-02-23] MEDS ORDERED: ALBUTEROL (0.083%) 2.5MG/3ML NEB HHN STA (17:43)
[2021-02-23] MEDS ORDERED: IPRATROPIUM BROMIDE (0.02%) 0.5MG/2.5ML NEB HHN STA (17:43)
[2021-02-23] MEDS ORDERED: ALBU6.7H11 INH (18:14)
== END 2021-02-23 18:31 | disposition home or self-care (01) ==
LOC: ER 16:33
DX: J44.1 Chronic obstructive pulmonary disease with (acute) exacerbation (principal); F12.10 Cannabis abuse, uncomplicated; J45.909 Unspecified asthma, uncomplicated; Z79.899 Other long term (current) drug therapy; Z98.890 Other specified postprocedural states
CPT/HCPCS: 94640; 99283; Z7610

== ENCOUNTER 2021-02-28 18:55 | Emergency (ER) | payer OTHER ==
[~2021-02-28] VITALS: Ht 177.8 cm; Wt 78.0 kg
[~2021-02-28 18:55] MED LIST changes: +ALBU6.7H11 INH
[2021-02-28] MEDS ORDERED: IPRATROPIUM BROMIDE (0.02%) 0.5MG/2.5ML NEB HHN STA (23:01)
[2021-02-28] MEDS ORDERED: ALBUTEROL (0.083%) 2.5MG/3ML NEB HHN STA (23:01)
[2021-03-01 03:00] VITALS: BP 131/81
== END 2021-03-01 03:25 | disposition home or self-care (01) ==
LOC: ER 18:55
DX: J45.909 Unspecified asthma, uncomplicated (principal); F15.10 Other stimulant abuse, uncomplicated; F12.10 Cannabis abuse, uncomplicated; J44.1 Chronic obstructive pulmonary disease with (acute) exacerbation; Z79.899 Other long term (current) drug therapy; Z86.59 Personal history of other mental and behavioral disorders
CPT/HCPCS: 94640; 99283; Z7610

== ENCOUNTER 2021-03-02 13:20 | Emergency (ER) | payer OTHER ==
[~2021-03-02] VITALS: Ht 175.3 cm; Wt 77.0 kg
[2021-03-02 13:23] VITALS: BP 106/78
== END 2021-03-02 14:05 | disposition left against medical advice (07) ==
LOC: ER 13:20
DX: J44.1 Chronic obstructive pulmonary disease with (acute) exacerbation (principal)
CPT/HCPCS: 99283

== ENCOUNTER 2021-03-05 16:50 | Emergency (ER) | payer OTHER ==
[~2021-03-05] VITALS: Ht 177.8 cm; Wt 65.0 kg
[2021-03-05] MEDS ORDERED: ALBUTEROL (0.083%) 2.5MG/3ML NEB HHN STA (18:12)
[2021-03-05] MEDS ORDERED: IPRATROPIUM BROMIDE (0.02%) 0.5MG/2.5ML NEB HHN STA (18:12)
[2021-03-05] MEDS ORDERED: PREDNISONE 20MG TABLET PO STA (18:12)
[2021-03-05 19:01] LABS: HEMATOCRIT. 44.4 % (42.0-52.0); HEMOGLOBIN. 15.3 g/dL (14.0-18.0); MEAN CORPUSCULAR HEMOGLOBIN 29.8 pg (28.0-32.0); MEAN CORPUSCULAR VOLUME 86.3 fL (80.0-94.0); MEAN PLATELET VOLUME 7.6 fl (7.4-10.4); PLATELET 242 x1000/uL (130-400); RED BLOOD CELL COUNT 5.14 mill/uL (4.7-6.1); RED CELL DISTRIBUTION WIDTH 13.6 % (11.6-14.6)
[2021-03-05 19:04] LABS: CHLORIDE 104 mEq/L (98-107)
[2021-03-05 20:10] LABS: PLATELET ESTIMATE NORMAL
[2021-03-05] MEDS ORDERED: P50 MT (21:05)
[2021-03-05] MEDS ORDERED: ALBU18HF2 IH (21:10)
[2021-03-05 22:00] VITALS: BP 152/78
== END 2021-03-05 22:17 | disposition home or self-care (01) ==
LOC: ER 16:50
DX: J45.909 Unspecified asthma, uncomplicated (principal); J44.9 Chronic obstructive pulmonary disease, unspecified; F12.10 Cannabis abuse, uncomplicated; F15.10 Other stimulant abuse, uncomplicated; Z79.899 Other long term (current) drug therapy; Z20.822 Contact with and (suspected) exposure to COVID-19
CPT/HCPCS: 36415; 71045; 80053; 83880; 84484; 85025; 87426; 94640; 99284; J7512; Z7610

== ENCOUNTER 2021-03-12 13:13 | Emergency (ER) | payer OTHER ==
[~2021-03-12] VITALS: Ht 172.7 cm; Wt 68.0 kg
[~2021-03-12 13:13] MED LIST changes: +ALBU18HF2 IH
[2021-03-12] MEDS ORDERED: LIDOCAINE HCL/PF 1% 2ML VIAL ONE (13:40)
[2021-03-12] MEDS ORDERED: IPRATROPIUM BROMIDE (0.02%) 0.5MG/2.5ML NEB HHN STA (14:14)
[2021-03-12] MEDS ORDERED: ALBUTEROL (0.083%) 2.5MG/3ML NEB HHN STA (14:14)
[2021-03-12] MEDS ORDERED: METHYLPREDNISOLONE SOD SUCC 125 MG/2 ML VIAL IV STA (14:14)
[2021-03-12 14:39] LABS: BG BASE EXCESS -0.8 mmol/L (-2.0-2.0); BG CARBOXYHEMOGLOBIN 1.4 % (0.5-1.5); BG DEOXYHEMOGLOBIN 0.9 % (0.0-5.0); BG FRACTION INSPIRED OXYGEN 60; BG HCO3 ACT 23.2 mmol/L (22.0-26.0); BG METHEMOGLOBIN 0.3 % (0.0-1.5); BG OXYGEN SATURATION 99.1 % (92.0-98.5); BG OXYHEMOGLOBIN 97.4 % (94.0-97.0); BG PCO2 36.6 mmHg (35.0-45.0); BG PO2 161.3 mmHg (75.0-100.0); BG SAMPLE SITE RIGHT BRACHIAL; BG TOTAL HEMOGLOBIN 14.7 g/dL (12.0-18.0); BG VENT MODE MASK - SIMPLE
[2021-03-12 15:58] LABS: HEMATOCRIT. 43.6 % (42.0-52.0); HEMOGLOBIN. 14.8 g/dL (14.0-18.0); MEAN CORPUSCULAR HEMOGLOBIN 29.1 pg (28.0-32.0); MEAN CORPUSCULAR VOLUME 85.7 fL (80.0-94.0); MEAN PLATELET VOLUME 7.3 fl (7.4-10.4); PLATELET 227 x1000/uL (130-400); RED BLOOD CELL COUNT 5.09 mill/uL (4.7-6.1); RED CELL DISTRIBUTION WIDTH 13.8 % (11.6-14.6)
[2021-03-12 16:06] LABS: CHLORIDE 102 mEq/L (98-107)
[2021-03-12 16:10] LABS: ETHANOL BLOOD < 10 mg/dL
[2021-03-12 16:52] LABS: *AMPHETAMINES SCREEN URINE NEGATIVE (NEGATIVE)
[2021-03-12 16:53] LABS: *BARBITURATES SCREEN URINE NEGATIVE (NEGATIVE); *BENZODIAZEPINES SCREEN URINE NEGATIVE (NEGATIVE); *COCAINE SCREEN URINE PRESUMTIVE POSITIVE (NEGATIVE); CANNABINOID URINE SCREEN NEGATIVE (NEGATIVE); METHADONE URINE SCREEN NEGATIVE (NEGATIVE); OPIATES URINE SCREEN NEGATIVE (NEGATIVE); PHENCYCLIDINE URINE SCREEN NEGATIVE (NEGATIVE)
[2021-03-12 18:50] LABS: PLATELET ESTIMATE NORMAL
[2021-03-12] MEDS ORDERED: AZIT250T12 MT (19:08)
[2021-03-12 19:30] VITALS: BP 114/72
== END 2021-03-12 19:54 | disposition home or self-care (01) ==
LOC: ER 13:13
DX: R05 Cough (principal); J45.909 Unspecified asthma, uncomplicated; R06.02 Shortness of breath; J44.9 Chronic obstructive pulmonary disease, unspecified; F17.290 Nicotine dependence, other tobacco product, uncomplicated; F14.10 Cocaine abuse, uncomplicated; Z79.899 Other long term (current) drug therapy; Z20.822 Contact with and (suspected) exposure to COVID-19
CPT/HCPCS: 36415; 36600; 71045; 80053; 80305; 80307; 80320; 80329; 82375; 82805; 83690; 83880; 84484; 85025; 87426; 93005; 94640; 96374; 99285; J2930; J3490; Z7610; G0480

== ENCOUNTER 2021-03-14 11:14 | Emergency (ER) | payer OTHER ==
[~2021-03-14] VITALS: Ht 188 cm; Wt 73.0 kg
[~2021-03-14 11:14] MED LIST changes: +AZIT250T12 MT
[2021-03-14 13:39] VITALS: BP 120/70
== END 2021-03-14 13:41 | disposition home or self-care (01) ==
LOC: ER 11:30
DX: J44.1 Chronic obstructive pulmonary disease with (acute) exacerbation (principal); F14.10 Cocaine abuse, uncomplicated; Z59.0 Homelessness
CPT/HCPCS: 99283

== ENCOUNTER 2021-03-18 17:32 | Emergency (ER) | payer OTHER ==
[~2021-03-18] VITALS: Ht 177.8 cm; Wt 79.0 kg
[2021-03-18 17:35] VITALS: BP 136/74
[2021-03-18] MEDS ORDERED: ALBU6.7H9 INH (19:38)
== END 2021-03-18 20:44 | disposition home or self-care (01) ==
LOC: ER 17:32
DX: J44.1 Chronic obstructive pulmonary disease with (acute) exacerbation (principal); G40.909 Epilepsy, unspecified, not intractable, without status epilepticus
CPT/HCPCS: 99283

== ENCOUNTER 2021-03-20 23:53 | Emergency (ER) | payer OTHER ==
[~2021-03-20] VITALS: Ht 177.8 cm; Wt 73.0 kg
[2021-03-21] MEDS ORDERED: PREDNISONE 20MG TABLET PO STA (00:25)
[2021-03-21] MEDS ORDERED: IPRATROPIUM BROMIDE (0.02%) 0.5MG/2.5ML NEB HHN STA (00:25)
[2021-03-21] MEDS ORDERED: ALBUTEROL (0.083%) 2.5MG/3ML NEB HHN STA (00:25)
[2021-03-21 02:41] VITALS: BP 127/80
[2021-03-22] MEDS ORDERED: ALBU90AE INH (22:53)
== END 2021-03-21 02:43 | disposition home or self-care (01) ==
LOC: ER 23:53
DX: J44.9 Chronic obstructive pulmonary disease, unspecified (principal); Z79.899 Other long term (current) drug therapy
CPT/HCPCS: 94640; 99283; J7512; Z7610

== ENCOUNTER 2021-03-22 20:52 | Emergency (ER) | payer OTHER ==
[~2021-03-22] VITALS: Ht 172.7 cm; Wt 64.0 kg
[2021-03-22] MEDS ORDERED: ALBU90AE INH (22:53)
[2021-03-22 23:10] VITALS: BP 125/87
== END 2021-03-22 23:36 | disposition home or self-care (01) ==
LOC: ER 20:52
DX: R06.02 Shortness of breath (principal); Z91.14 Patient's other noncompliance with medication regimen; J45.909 Unspecified asthma, uncomplicated; J44.9 Chronic obstructive pulmonary disease, unspecified; G40.909 Epilepsy, unspecified, not intractable, without status epilepticus
CPT/HCPCS: 93005; 99283

== ENCOUNTER 2021-03-31 02:12 | Emergency (ER) | payer MEDICAID, OTHER ==
[~2021-03-31] VITALS: Ht 172.7 cm; Wt 59.0 kg
[~2021-03-31 02:12] MED LIST changes: +ALBU90AE INH
[2021-03-31] MEDS ORDERED: P20 MT (02:25)
[2021-03-31] MEDS ORDERED: ALBU6.7H9 INH (02:25)
[2021-03-31] MEDS ORDERED: IPRATROPIUM/ALBUTEROL 0.5-3(2.5)MG/3ML NEB HHN ONE (02:30)
[2021-03-31] MEDS ORDERED: PREDNISONE 20MG TABLET PO ONE (04:15)
[2021-03-31 06:29] VITALS: BP 102/68
== END 2021-03-31 06:32 | disposition home or self-care (01) ==
LOC: ER 02:12
DX: J45.901 Unspecified asthma with (acute) exacerbation (principal); F17.200 Nicotine dependence, unspecified, uncomplicated; F14.10 Cocaine abuse, uncomplicated; Z79.899 Other long term (current) drug therapy; Z86.59 Personal history of other mental and behavioral disorders
CPT/HCPCS: 71045; 93005; 94640; 99283; J7512; Z7610

== ENCOUNTER 2021-04-01 20:21 | Emergency (ER) | payer MEDICAID ==
[~2021-04-01] VITALS: Ht 177.8 cm; Wt 73.0 kg
[2021-04-01 20:23] VITALS: BP 118/80
[2021-04-01] MEDS ORDERED: IPRATROPIUM BROMIDE (0.02%) 0.5MG/2.5ML NEB HHN STA (22:52)
[2021-04-01] MEDS ORDERED: ALBUTEROL (0.083%) 2.5MG/3ML NEB HHN STA (22:52)
== END 2021-04-02 00:20 | disposition home or self-care (01) ==
LOC: ER 20:21
DX: J44.9 Chronic obstructive pulmonary disease, unspecified (principal); F14.10 Cocaine abuse, uncomplicated; Z79.899 Other long term (current) drug therapy
CPT/HCPCS: 94640; 99283; Z7610

== ENCOUNTER 2021-04-03 18:38 | Emergency (ER) | payer MEDICAID ==
[~2021-04-03] VITALS: Ht 177.8 cm; Wt 68.0 kg
[~2021-04-03 18:38] MED LIST changes: -ALBU6.7H11 INH; +ALBU6.7H15 INH
[2021-04-03] MEDS ORDERED: ALBUTEROL (0.083%) 2.5MG/3ML NEB HHN STA (20:15)
[2021-04-03] MEDS ORDERED: PREDNISONE 20MG TABLET PO STA (20:15)
[2021-04-04] MEDS ORDERED: PREDNISONE 20MG TABLET PO NR (00:45)
[2021-04-04] MEDS ORDERED: ALBU6.7H9 INH (00:49)
[2021-04-04] MEDS ORDERED: ALBUTEROL (0.083%) 2.5MG/3ML NEB HHN NR (01:15)
[2021-04-04 03:47] VITALS: BP 96/62
[2021-04-05] MEDS ORDERED: ALBU90AE INH (22:26)
== END 2021-04-04 04:07 | disposition home or self-care (01) ==
LOC: ER 18:38
DX: J44.1 Chronic obstructive pulmonary disease with (acute) exacerbation (principal); F17.290 Nicotine dependence, other tobacco product, uncomplicated; Z79.899 Other long term (current) drug therapy
CPT/HCPCS: 71045; 94640; 99285; 99406; J7512; Z7610

== ENCOUNTER 2021-04-05 20:41 | Emergency (ER) | payer MEDICAID ==
[~2021-04-05] VITALS: Ht 177.8 cm; Wt 73.0 kg
[~2021-04-05 20:41] MED LIST changes: +ALBU6.7H11 INH; -ALBU6.7H15 INH
[2021-04-05 20:43] VITALS: BP 177/121
[2021-04-05] MEDS ORDERED: ALBU90AE INH (22:26)
== END 2021-04-05 22:40 | disposition home or self-care (01) ==
LOC: ER 20:41
DX: J44.1 Chronic obstructive pulmonary disease with (acute) exacerbation (principal); F17.210 Nicotine dependence, cigarettes, uncomplicated
CPT/HCPCS: 93005; 99283

== ENCOUNTER 2021-04-22 15:18 | Emergency (ER) | payer MEDICAID ==
[~2021-04-22] VITALS: Ht 165.1 cm; Wt 78.0 kg
[~2021-04-22 15:18] MED LIST changes: -ALBU6.7H11 INH; +ALBU6.7H15 INH
[2021-04-22 18:30] VITALS: BP 135/84
[2021-04-22] MEDS ORDERED: ALBUTEROL 6.7GM HFA INHALER ORI ONE (19:00)
[2021-04-22] MEDS ORDERED: PREDNISONE 20MG TABLET PO ONE (19:00)
[2021-04-22 19:07] LABS: CHLORIDE 98 mEq/L (98-107)
[2021-04-22 19:09] LABS: BASOPHILS % 0.6 % (0.0-2.0); EOSINOPHILS % 2.2 % (0.0-5.0); HEMATOCRIT. 41.7 % (42.0-52.0); HEMOGLOBIN. 13.9 g/dL (14.0-18.0); LYMPHOCYTES % 17.3 % (20.0-50.0); MEAN CORPUSCULAR HEMOGLOBIN 29.4 pg (28.0-32.0); MEAN CORPUSCULAR VOLUME 88.1 fL (80.0-94.0); MEAN PLATELET VOLUME 7.4 fl (7.4-10.4); MONOCYTES % 9.8 % (2.0-8.0); NEUTROPHILS % 70.1 % (40.0-76.0); PLATELET 216 x1000/uL (130-400); RED BLOOD CELL COUNT 4.73 mill/uL (4.7-6.1); RED CELL DISTRIBUTION WIDTH 13.5 % (11.6-14.6)
[2021-04-22] MEDS ORDERED: ALBU18HF2 IH (19:22)
[2021-04-22] MEDS ORDERED: AZIT250T12 PO (19:24)
[2021-04-22] MEDS ORDERED: P50 MT (19:24)
[2021-04-22] MEDS ORDERED: AZITHROMYCIN 500 MG TABLET PO ONE (19:30)
== END 2021-04-22 20:00 | disposition home or self-care (01) ==
LOC: ER 15:18
DX: J45.901 Unspecified asthma with (acute) exacerbation (principal); R03.0 Elevated blood-pressure reading, without diagnosis of hypertension; G40.909 Epilepsy, unspecified, not intractable, without status epilepticus; Z59.0 Homelessness; Z79.51 Long term (current) use of inhaled steroids; Z79.899 Other long term (current) drug therapy
CPT/HCPCS: 36415; 71045; 80053; 83880; 84484; 85025; 93005; 94640; 99285; J7512; Z7610

== ENCOUNTER 2021-04-26 17:08 | Emergency (ER) | payer MEDICAID ==
[~2021-04-26] VITALS: Ht 193 cm; Wt 78.0 kg
[~2021-04-26 17:08] MED LIST changes: +AZIT250T12 PO
[2021-04-26 17:10] VITALS: BP 154/88
[2021-04-26] MEDS ORDERED: AZIT250T12 MT (20:29)
[2021-04-26] MEDS ORDERED: P20 MT (20:29)
[2021-04-26] MEDS ORDERED: ALBU6.7H9 ORI (20:29)
[2021-04-26] MEDS ORDERED: DOXYCYCLINE HYCLATE 100MG CAPSULE PO ONE (20:30)
[2021-04-26] MEDS ORDERED: DEXAMETHASONE 4MG TABLET PO ONE (20:30)
[2021-04-26 21:13] LABS: BASOPHILS % 1.5 % (0.0-2.0); EOSINOPHILS % 1.8 % (0.0-5.0); HEMATOCRIT. 40.4 % (42.0-52.0); HEMOGLOBIN. 13.5 g/dL (14.0-18.0); LYMPHOCYTES % 28.5 % (20.0-50.0); MEAN CORPUSCULAR VOLUME 86.7 fL (80.0-94.0); MEAN PLATELET VOLUME 7.4 fl (7.4-10.4); MONOCYTES % 10.9 % (2.0-8.0); NEUTROPHILS % 57.3 % (40.0-76.0); PLATELET 263 x1000/uL (130-400); RED BLOOD CELL COUNT 4.65 mill/uL (4.7-6.1); RED CELL DISTRIBUTION WIDTH 13.2 % (11.6-14.6)
[2021-04-26 21:18] LABS: CHLORIDE 101 mEq/L (98-107)
[2021-04-26 21:21] LABS: PROTHROMBIN TIME 10.5 sec (9.6-11.0)
== END 2021-04-27 00:06 | disposition home or self-care (01) ==
LOC: ER 17:08
DX: J44.1 Chronic obstructive pulmonary disease with (acute) exacerbation (principal); R00.0 Tachycardia, unspecified; Z91.14 Patient's other noncompliance with medication regimen; G40.909 Epilepsy, unspecified, not intractable, without status epilepticus; Z59.0 Homelessness
CPT/HCPCS: 36415; 71045; 80053; 83880; 84484; 85025; 85610; 93005; 99285; J8540

== ENCOUNTER 2021-05-05 16:49 | Emergency (ER) | payer MEDICAID ==
[~2021-05-05] VITALS: Ht 182.9 cm; Wt 80.0 kg
[2021-05-05] MEDS ORDERED: PREDNISONE 20MG TABLET PO ONE (17:15)
[2021-05-05] MEDS ORDERED: ALBUTEROL (0.083%) 2.5MG/3ML NEB HHN ONE (17:15)
[2021-05-05 18:10] VITALS: BP 115/72
== END 2021-05-05 18:21 | disposition home or self-care (01) ==
LOC: ER 16:49
DX: Z79.899 Other long term (current) drug therapy (principal); J44.1 Chronic obstructive pulmonary disease with (acute) exacerbation; Z86.59 Personal history of other mental and behavioral disorders; F17.200 Nicotine dependence, unspecified, uncomplicated
CPT/HCPCS: 93005; 94640; 99291; J7512; Z7610

== ENCOUNTER 2021-05-07 17:21 | Emergency (ER) | payer MEDICAID, OTHER ==
[~2021-05-07] VITALS: Ht 177.8 cm; Wt 82.0 kg
[2021-05-08] MEDS ORDERED: ALBUTEROL (0.083%) 2.5MG/3ML NEB HHN STA (00:19)
[2021-05-08] MEDS ORDERED: PREDNISONE 20MG TABLET PO STA (00:19)
[2021-05-08] MEDS ORDERED: IPRATROPIUM BROMIDE (0.02%) 0.5MG/2.5ML NEB HHN STA (00:19)
[2021-05-08] MEDS ORDERED: P20 MT (02:10)
[2021-05-08 02:44] VITALS: BP 120/81
== END 2021-05-08 02:46 | disposition home or self-care (01) ==
LOC: ER 17:21
DX: J44.1 Chronic obstructive pulmonary disease with (acute) exacerbation (principal); R03.0 Elevated blood-pressure reading, without diagnosis of hypertension
CPT/HCPCS: 94640; 99283; J7512; Z7610

== ENCOUNTER 2021-05-11 20:29 | Emergency (ER) | payer OTHER ==
[~2021-05-11] VITALS: Ht 182.9 cm; Wt 80.0 kg
[2021-05-11] MEDS ORDERED: ALBUTEROL (0.083%) 2.5MG/3ML NEB HHN STA (21:23)
[2021-05-12] VITALS: BP 123/78
== END 2021-05-12 00:30 | disposition home or self-care (01) ==
LOC: ER 20:29
DX: J44.1 Chronic obstructive pulmonary disease with (acute) exacerbation (principal); Z79.899 Other long term (current) drug therapy
CPT/HCPCS: 71045; 93005; 94640; 99283; Z7610

== ENCOUNTER 2021-05-14 18:04 | Emergency (ER) | payer OTHER ==
[~2021-05-14] VITALS: Ht 167.6 cm; Wt 70.0 kg
[2021-05-14] MEDS ORDERED: IPRATROPIUM/ALBUTEROL 0.5-3(2.5)MG/3ML NEB HHN ONE (23:30)
[2021-05-14] MEDS ORDERED: PREDNISONE 20MG TABLET PO ONE (23:30)
[2021-05-14] MEDS ORDERED: IPRATROPIUM BROMIDE (0.02%) 0.5MG/2.5ML NEB HHN STA (23:46)
[2021-05-14] MEDS ORDERED: ALBUTEROL (0.083%) 2.5MG/3ML NEB HHN STA (23:46)
[2021-05-14 23:58] LABS: HEMOGLOBIN. 13.4 g/dL (14.0-18.0); MEAN CORPUSCULAR HEMOGLOBIN 29.3 pg (28.0-32.0); MEAN CORPUSCULAR VOLUME 87.3 fL (80.0-94.0); MEAN PLATELET VOLUME 7.2 fl (7.4-10.4); PLATELET 215 x1000/uL (130-400); RED BLOOD CELL COUNT 4.58 mill/uL (4.7-6.1); RED CELL DISTRIBUTION WIDTH 12.9 % (11.6-14.6)
[2021-05-15 00:04] LABS: CHLORIDE 102 mEq/L (98-107)
[2021-05-15] MEDS ORDERED: ALBU6.7H9 INH (00:23)
[2021-05-15] MEDS ORDERED: P20 MT (00:23)
[2021-05-15 01:35] VITALS: BP 98/61
[2021-05-15 03:19] LABS: PLATELET ESTIMATE NORMAL
== END 2021-05-15 01:59 | disposition home or self-care (01) ==
LOC: ER 18:04
DX: J44.1 Chronic obstructive pulmonary disease with (acute) exacerbation (principal)
CPT/HCPCS: 36415; 71045; 80053; 85025; 93005; 94640; 99285; Z7610

== ENCOUNTER 2021-05-19 23:32 | Emergency (ER) | payer OTHER ==
[~2021-05-19] VITALS: Ht 172.7 cm; Wt 80.0 kg
[2021-05-19 23:42] VITALS: BP 140/90
== END 2021-05-20 00:39 | disposition home or self-care (01) ==
LOC: ER 23:32
DX: T40.5X1A Poisoning by cocaine, accidental (unintentional), initial encounter (principal); R06.02 Shortness of breath; F14.188 Cocaine abuse with other cocaine-induced disorder; R03.0 Elevated blood-pressure reading, without diagnosis of hypertension; Y92.89 Other specified places as the place of occurrence of the external cause; Z59.00 Homelessness unspecified; J44.9 Chronic obstructive pulmonary disease, unspecified; J45.909 Unspecified asthma, uncomplicated; Z79.51 Long term (current) use of inhaled steroids; Z79.899 Other long term (current) drug therapy
CPT/HCPCS: 93005; 99283

== ENCOUNTER 2021-05-30 16:27 | Emergency (ER) | payer OTHER ==
[~2021-05-30] VITALS: Ht 172.7 cm; Wt 75.0 kg
[2021-05-30 16:38] VITALS: BP 150/76
== END 2021-05-30 20:35 | disposition left against medical advice (07) ==
LOC: ER 16:27
DX: R06.02 Shortness of breath (principal); Z53.21 Procedure and treatment not carried out due to patient leaving prior to being seen by health care provider

== ENCOUNTER 2021-06-05 10:00 | Emergency (ER) | payer OTHER ==
[~2021-06-05] VITALS: Ht 177.8 cm; Wt 86.0 kg
[2021-06-05] MEDS ORDERED: FLUT1DIS3 INH (11:34)
[2021-06-05] MEDS ORDERED: ALBU6.7H9 ORI (11:34)
[2021-06-05 12:45] VITALS: BP 168/100
== END 2021-06-05 13:36 | disposition home or self-care (01) ==
LOC: ER 10:00
DX: R06.02 Shortness of breath (principal); Z79.51 Long term (current) use of inhaled steroids; J45.909 Unspecified asthma, uncomplicated; J44.9 Chronic obstructive pulmonary disease, unspecified
CPT/HCPCS: 71045; 93005; 99283

== ENCOUNTER 2021-06-07 14:30 | Emergency (ER) | payer OTHER ==
[~2021-06-07] VITALS: Ht 188 cm; Wt 82.0 kg
[2021-06-07] MEDS ORDERED: ALBUTEROL (0.083%) 2.5MG/3ML NEB HHN ONE (21:15)
[2021-06-07 23:53] VITALS: BP 98/73
== END 2021-06-08 01:13 | disposition home or self-care (01) ==
LOC: ER 14:30
DX: J44.1 Chronic obstructive pulmonary disease with (acute) exacerbation (principal)
CPT/HCPCS: 71045; 94640; 99283; Z7610